=== PATIENT | male | born 1950 | race Caucasian/White ===

== ENCOUNTER 2016-06-15 06:05 | Day surgery (SDC) | payer MEDICARE ==
[2016-06-15] MEDS ORDERED: SODIUM BICARBONATE VIAL 50 MEQ/50 ML VIAL ONE (10:45)
[2016-06-15] MEDS ORDERED: SODIUM CHLORIDE 0.9% 10 ML VIAL ONE (10:45)
[2016-06-15] MEDS ORDERED: methylPREDNISolone ACETATE 80 MG/ML VIAL ONE (10:45)
[2016-06-15] MEDS: LIDOCAINE 1% 10 ML VIAL INJ ONE ×2 (12:45→12:49)
[2016-06-15] MEDS ORDERED: LIDOCAINE 1% 10 ML VIAL INJ ONE (12:49)
[2016-06-15 13:08] VITALS: BP 174/72; TEMP 98.6; O2SAT 14
== END 2016-06-15 13:08 | disposition home or self-care (01) ==
LOC: AMB 06:05
PROVIDERS: ATTEND Anesthesiology Pain Medicine
DX: M51.16 Intervertebral disc disorders with radiculopathy, lumbar region (principal); M47.817 Spondylosis without myelopathy or radiculopathy, lumbosacral region; Z79.01 Long term (current) use of anticoagulants; Z79.4 Long term (current) use of insulin; Z79.899 Other long term (current) drug therapy; E11.9 Type 2 diabetes mellitus without complications; I10 Essential (primary) hypertension
CPT/HCPCS: 62323; 76000; J1030

== ENCOUNTER → 2016-07-01 | Outpatient (CLI) | payer MEDICARE | END | disposition home or self-care (01) | LOC: LAB.O 09:17 | PROVIDERS: ATTEND Surgery | DX: E11.9 Type 2 diabetes mellitus without complications (principal); E78.00 Pure hypercholesterolemia, unspecified; Z79.4 Long term (current) use of insulin; I10 Essential (primary) hypertension ==

== ENCOUNTER 2016-08-14 11:07 | Emergency (ER) | payer MEDICARE ==
--- NOTE | 2016-08-14 12:00 | RAD ---
EXAM DESCRIPTION: Abdomen Series CLINICAL HISTORY: 66 years Male, 1 wk s/p gastric bypass with rectal bleed COMPARISON: None. TECHNIQUE: Frontal view of the chest with three-view abdomen including supine and upright FINDINGS: Lungs clear. Mild cardiomegaly without failure. Bowel gas pattern unremarkable. No mass or calculus. IMPRESSION: Mild cardiomegaly otherwise unremarkable Electronically signed by: Arik Delong MD 08/14/2016 11:59 AM CDT
--- NOTE | 2016-08-14 13:15 | ED.PDOC ---
History of Present Illness - General Chief Complaint: GI Problem Time Seen by Provider: 08/14/16 11:26 Source: patient, family Exam Limitations: no limitations - History of Present Illness Initial Comments: the patient is a 66-year-old male presenting to the emergency room secondary to a lower GI bleed. The patient had a couple of frankly bloody bowel movements this morning. No abdominal pain. No nausea or vomiting. He did have a little bit of dizziness and diaphoresis that has resolved. He is feeling a little weak currently. The patient just had a gastric bypass with Dr. Sherwood at [facility] on the of this month. He apparently did receive a unit or 2 of packed red blood cells at the time. Additionally he is on both Lovenox and Coumadin getting his INR back to a therapeutic level as he does have chronic atrial fibrillation and an aortic valve replacement. The patient had been doing well until this. No syncope. No chest pain. No further bloody bowel movements since early this morning. Timing/Duration: 1-3 hours Severity: mild Improving Factors: nothing Worsening Factors: nothing Associated Symptoms: diaphoresis, loss of appetite, malaise Allergies/Adverse Reactions: Allergies NO KNOWN ALLERGY Allergy (Unverified 01/06/13 12:06) Home Medications: Ambulatory Orders Furosemide 80 mg PO DAILY 01/28/14 Ramipril 10 mg PO BID 01/28/14 Warfarin Sodium 9 mg PO NOON 01/28/14 Metoprolol Tartrate 50 mg PO BID 08/29/14 Simvastatin [Zocor] 80 mg PO BEDTIME 05/23/15 Spironolactone [Aldactone] 25 mg PO DAILY 05/23/15 Insulin Regular (Human) [Novolin R] 100 unit SUBCU .SLIDING SCALE 10/30/15 Furosemide 40 mg PO DAILY@1200 11/25/15 Enoxaparin Sodium [Lovenox] 140 mg SC BID 08/14/16 Omeprazole Magnesium [Prilosec Otc] 20 mg PO DAILY 08/14/16 Review of Systems - Review of Systems Constitutional: States: malaise EENTM: States: no symptoms reported Respiratory: States: no symptoms reported Cardiology: States: no symptoms reported Gastrointestinal/Abdominal: States: no symptoms reported Genitourinary: States: no symptoms reported Musculoskeletal: States: no symptoms reported Skin: States: no symptoms reported Neurological: States: weakness Endocrine: States: excessive sweating Hematologic/Lymphatic: States: blood clots All other Systems: No Change from Baseline Past Medical History (General) - Patient Medical History Hx Seizures: No Hx Stroke: No Hx Asthma: No Hx of COPD: Yes Hx Cardiac Disorders: Yes Hx Congestive Heart Failure: Yes - 2007 Hx Pacemaker: No Hx Hypertension: Yes Hx Diabetes: Yes Hx Gastroesophageal Reflux: Yes Hx MRSA: No Surgical History: cholecystectomy, coronary bypass surgery, gastric bypass - Vaccination History Hx Influenza Vaccination: Yes Hx Pneumococcal Vaccination: Yes Immunizations Up to Date: Yes - Social History Hx Tobacco Use: No Hx Alcohol Use: No Hx Substance Use: No Hx Physical Abuse: No Hx Emotional Abuse: No - Triage Comment ED Triage Comment: Patient is on a liquid diet - approximately 3oz. TID. Patient reports "I'm weak". Family Medical History - Family History Mother Family History: No Known Living Status: Age at (years of age): 68 Cause of : Heart Attack Hx Family Diabetes: Yes Father Age (years): 52 Living Status: Age at (years of age): 51 Cause of : emphysema Brother Living Status: Age at (years of age): 53 Cause of : Diabetes Hx Family Diabetes: Yes Physical Exam - Physical Exam General Appearance: Alert, Comfortable, No apparent distress Eye Exam: bilateral normal Ears, Nose, Throat: normal ENT inspection, normal pharynx Neck: full range of motion, supple, normal inspection Respiratory: chest non-tender, lungs clear, normal breath sounds, no respiratory distress, no accessory muscle use Cardiovascular/Chest: normal peripheral pulses, no edema, other - regular rate Peripheral Pulses: radial,right: 2+, radial,left: 2+ Gastrointestinal/Abdominal: soft, other - no evidence of infection about operative sites. He does have extensive bruising to the lower abdomen from his previous Lovenox injections. Back Exam: normal inspection, no CVA tenderness Extremity: normal range of motion, non-tender, normal inspection, no pedal edema Neurologic: alert, normal mood/affect, oriented x 3 Skin Exam: normal color - with the exception of the bruising Comments: Vital Signs - 24 hr 08/14/16 11:20 Temperature 99.2 F Pulse Rate [ 92 H Apical] Respiratory 20 Rate Blood Pressure 154/65 [Right Arm] O2 Sat by Pulse 97 Oximetry Progress - Progress Progress: 08/14/16 13:16 the patient is a 66-year-old male presenting with a GI bleed manifesting as blood per rectum this morning. The patient is on anticoagulation with both Lovenox and Coumadin. His INR level today is 1.44. He took his most recent dose of Lovenox early this morning. H&H is 9 and 27. Platelets are adequate. Vital signs have been stable. No abdominal pain and no recent hemorrhoids. The patient will be transferred back to [facility] for further monitoring. Blood thinners will be held. The patient will be made nothing by mouth. It is recommended that patient be transferred by ambulance. due to no evidence of continued bleeding since early this morning, the patient is not at this time being given vitamin K, FFP or protamine. Transferring for specialty evaluation. Departure - Departure Clinical Impression: Gastrointestinal bleed Qualifiers: GI bleed type/associated pathology: melena Qualifier Code: (K92.1) Melena Disposition: Transfer to Hospital Home Medications: Ambulatory Orders Furosemide 80 mg PO DAILY 01/28/14 Ramipril 10 mg PO BID 01/28/14 Warfarin Sodium 9 mg PO NOON 01/28/14 Metoprolol Tartrate 50 mg PO BID 08/29/14 Simvastatin [Zocor] 80 mg PO BEDTIME 05/23/15 Spironolactone [Aldactone] 25 mg PO DAILY 05/23/15 Insulin Regular (Human) [Novolin R] 100 unit SUBCU .SLIDING SCALE 10/30/15 Furosemide 40 mg PO DAILY@1200 11/25/15 Enoxaparin Sodium [Lovenox] 140 mg SC BID 08/14/16 Omeprazole Magnesium [Prilosec Otc] 20 mg PO DAILY 08/14/16 Transfer to Outside Facility - Transfer Information Accepting Provider:: dr holalnd Accepting Facility: [facility] Reason for Transfer: required specialist not available
[2016-08-14 13:51] VITALS: TEMP 98.7
[2016-08-14 14:07] VITALS: BP 114/65; O2SAT 97
== END 2016-08-14 14:40 | disposition short-term general hospital (02) ==
LOC: ER 11:07
DX: K92.1 Melena (principal); I48.2 Chronic atrial fibrillation; Z79.01 Long term (current) use of anticoagulants; Z98.84 Bariatric surgery status; Z95.2 Presence of prosthetic heart valve; J44.9 Chronic obstructive pulmonary disease, unspecified; I11.0 Hypertensive heart disease with heart failure; I50.9 Heart failure, unspecified; E11.9 Type 2 diabetes mellitus without complications; K21.9 Gastro-esophageal reflux disease without esophagitis; Z95.1 Presence of aortocoronary bypass graft; Z79.4 Long term (current) use of insulin; Z79.899 Other long term (current) drug therapy

== ENCOUNTER 2016-08-25 11:02 | Outpatient (CLI) | payer MEDICARE ==
[2016-08-25] MEDS ORDERED: SODIUM CHLORIDE 0.9% 500ML 500 ML IVS ONE (13:14)
[2016-08-25] MEDS ORDERED: diphenhydrAMINE HCL 50 MG/ML VIAL IV ONE (13:55)
[2016-08-25] MEDS ORDERED: ACETAMINOPHEN 325 MG TAB PO ONE (13:56)
[2016-08-25 17:53] VITALS: BP 149/71; TEMP 99.1; O2SAT 100
== END 2016-08-25 17:55 | disposition home or self-care (01) ==
LOC: TXRM 11:02
PROVIDERS: ATTEND Family Medicine
PROC: 30233N1 Transfusion of Nonautologous Red Blood Cells into Peripheral Vein, Percutaneous Approach (ICD-10-PCS; principal; 2016-08-25 10:00)
DX: D64.9 Anemia, unspecified (principal)
CPT/HCPCS: 36415; 36430; 86922; J1200; P9016

== ENCOUNTER 2016-08-26 04:45 | Emergency (ER) | payer MEDICARE ==
--- NOTE | 2016-08-26 04:59 | ED.PDOC ---
History of Present Illness - General Chief Complaint: GI Problem Stated Complaint: melena Time Seen by Provider: 08/26/16 04:57 Information Source: patient, EMS notes reviewed Exam Limitations: no limitations - History of Present Illness Initial Comments: Kelvin Chong 66 y/o male with history of valve replacement in 2007 was on anti coagulation with warfarin but was discontinued when he had the gastric bypass surgery in August 06 and was placed on lovenox post op and continue to self administer the Lovenox 2 weeks ago had an episode of lower gi bleeding was brought here and sent to [facility] with endoscopic findings of gastric ulcer given one prbc and omeprazole then was discharged home with lovenox continued.He was seen at his MDs office yesterday for continued lower gi bleeding was admitted and given 1 prbc and discharge home stating bleeding did not stop and tonight felt very weak and unable to get up. Abdominal Pain Onset Location: other - none Pain Radiation: no radiation Quality: other - no belly ache Timing/Duration: 1 week Improving Factors: nothing Worsening Factors: nothing Associated Symptoms: weakness Review of Systems - Review of Systems Constitutional: States: see HPI EENTM: States: no symptoms reported Respiratory: States: no symptoms reported Cardiology: States: no symptoms reported Gastrointestinal/Abdominal: States: see HPI Genitourinary: States: no symptoms reported Musculoskeletal: States: no symptoms reported Skin: States: no symptoms reported Neurological: States: no symptoms reported Endocrine: States: no symptoms reported Hematologic/Lymphatic: States: no symptoms reported Past Medical History (General) - Patient Medical History Hx Seizures: No Hx Stroke: No Hx Asthma: No Hx of COPD: Yes Hx Cardiac Disorders: Yes Hx Congestive Heart Failure: Yes - 2007 Hx Pacemaker: No Hx Hypertension: Yes Hx Diabetes: Yes Hx Gastroesophageal Reflux: Yes Hx MRSA: No Hx Other PMH: Yes - bleeding gastric ulcer Surgical History: cholecystectomy, other - gastic bypass,heart valve replacement - Vaccination History Hx Influenza Vaccination: Yes Hx Pneumococcal Vaccination: Yes - Social History Hx Tobacco Use: No Hx Alcohol Use: No Hx Substance Use: No Hx Physical Abuse: No Hx Emotional Abuse: No Family Medical History - Family History Mother Family History: No Known Living Status: Age at (years of age): 68 Cause of : Heart Attack Hx Family Hypertension: Yes - several family members Hx Family Diabetes: Yes Father Age (years): 52 Living Status: Age at (years of age): 51 Cause of : emphysema Brother Living Status: Age at (years of age): 53 Cause of : Diabetes Hx Family Diabetes: Yes Physical Exam - Physical Exam General Appearance: Alert, Anxious, No apparent distress Eyes, Ears, Nose, Throat Exam: PERRL/EOMI, normal ENT inspection, TMs normal, pharynx normal Neck: non-tender, full range of motion, supple, normal inspection Respiratory: chest non-tender, lungs clear, normal breath sounds Cardiovascular/Chest: normal peripheral pulses, regular rate, rhythm, no edema, no gallop, no JVD, no murmur Peripheral Pulses: No deficit Gastrointestinal/Abdominal: normal bowel sounds, non tender, soft, no organomegaly Rectal Exam: normal rectal tone, blood streaked stool Back Exam: normal inspection, no CVA tenderness, no vertebral tenderness Extremity: normal range of motion, non-tender, normal inspection, no pedal edema , no calf tenderness Neurologic: no motor/sensory deficits, alert, normal mood/affect, oriented x 3 Skin Exam: other - ecchymosis from lovenox injection Lymphatic: no adenopathy Progress - Results/Orders Results/Orders: 08/26/16 04:59 PRBC [PACKED CELLS,LR] Stat 08/26/16 05:51 fecal [FECAL OCCULT BLOOD] Stat Laboratory Results WBC 4.8 K/mm3 (4.8-10.8) 08/26/16 05:15 RBC 2.27 M/mm3 (4.70-6.10) L 08/26/16 05:15 Hgb 7.1 gm/dL (14.0-18.0) L* 08/26/16 05:15 Hct 20.6 % (42.0-52.0) L 08/26/16 05:15 MCV 90.7 fl (80.0-94.0) 08/26/16 05:15 MCH 31.2 pg (27.0-31.0) H 08/26/16 05:15 MCHC 34.4 g/dL (33.0-37.0) 08/26/16 05:15 RDW 16.2 % (11.5-14.5) H 08/26/16 05:15 Plt Count 235 K/mm3 (130-400) 08/26/16 05:15 MPV 9.3 fl (7.40-10.4) 08/26/16 05:15 Absolute Neuts (auto) 2.70 K/uL (1.8-6.8) 08/26/16 05:15 Absolute Lymphs (auto) 1.50 K/uL (1.0-3.4) 08/26/16 05:15 Absolute Monos (auto) 0.50 K/uL (0.2-0.8) 08/26/16 05:15 Absolute Eos (auto) 0.10 K/uL (0.0-0.4) 08/26/16 05:15 Absolute Basos (auto) 0.00 K/uL (0.0-0.1) 08/26/16 05:15 Neutrophils % 56.5 % (42.0-78.0) 08/26/16 05:15 Lymphocytes % 30.5 % (20.0-50.0) 08/26/16 05:15 Monocytes % 11.2 % (2.0-9.0) H 08/26/16 05:15 Eosinophils % 1.1 % (1.0-5.0) 08/26/16 05:15 Basophils % 0.7 % (0.0-2.0) 08/26/16 05:15 PT 13.3 SECONDS (9.4-12.5) H 08/26/16 05:15 INR 1.180 08/26/16 05:15 PTT (SP) 38.4 SECONDS (25.1-36.5) H 08/26/16 05:15 Sodium 134 mmol/L (135-145) L 08/26/16 05:15 Potassium 3.4 mmol/L (3.6-5.0) L 08/26/16 05:15 Chloride 103 mmol/L (101-111) 08/26/16 05:15 Carbon Dioxide 24 mmol/L (21-31) 08/26/16 05:15 Anion Gap 10.4 (12-18) L 08/26/16 05:15 BUN 50 mg/dL (7-18) H 08/26/16 05:15 Creatinine 1.95 mg/dL (0.6-1.3) H 08/26/16 05:15 BUN/Creatinine Ratio 25.6 (10-20) H 08/26/16 05:15 Random Glucose 199 mg/dL (70-105) H 08/26/16 05:15 Serum Osmolality 287.2 mOsm/L (275-295) 08/26/16 05:15 Calcium 8.3 mg/dL (8.4-10.2) L 08/26/16 05:15 Total Bilirubin 1.2 mg/dL (0.2-1.0) H 08/26/16 05:15 AST 25 IU/L (10-42) 08/26/16 05:15 ALT 21 IU/L (10-60) 08/26/16 05:15 Alkaline Phosphatase 44 IU/L (42-121) 08/26/16 05:15 Serum Total Protein 6.0 gm/dL (6.4-8.2) L 08/26/16 05:15 Albumin 3.5 g/dl (3.2-5.5) 08/26/16 05:15 Globulin 2.5 gm/dL (2.3-3.5) 08/26/16 05:15 Albumin/Globulin Ratio 1.4 (1.1-1.9) 08/26/16 05:15 Stool Occult Blood Positive 08/26/16 05:30 Departure - Departure Clinical Impression: Melena, History of gastric bypass, History of aortic valve replacement with metallic valve, other type Gastric ulcer with hemorrhage Qualifiers: Gastric ulcer chronicity: chronic or unspecified Qualifier Code: (K25.4) Chronic or unspecified gastric ulcer with hemorrhage Time of Disposition: 06:56 - D/W Dr[facility] Ayla [facility] Disposition: Transfer to Hospital Condition: Fair Referrals: Chirag Echeverria III, MD [Primary Care Provider] - 1-2 Weeks Home Medications: Ambulatory Orders Ramipril 10 mg PO BID 01/28/14 Metoprolol Tartrate 50 mg PO BID 08/29/14 Simvastatin [Zocor] 80 mg PO BEDTIME 05/23/15 Spironolactone [Aldactone] 50 mg PO DAILY@0700 05/23/15 Insulin Regular (Human) [Novolin R] 100 unit SUBCU .SLIDING SCALE 10/30/15 Furosemide 40 mg PO DAILY@1200 11/25/15 Enoxaparin Sodium [Lovenox] 150 mg SC BID 08/14/16 Omeprazole Magnesium [Prilosec Otc] 20 mg PO BID 08/14/16 Addendum entered and electronically signed by Otoniel Yo MD 08/26/16 09: 13: Departure - Departure Clinical Impression: Melena, History of gastric bypass, History of aortic valve replacement with metallic valve, other type Gastric ulcer with hemorrhage Qualifiers: Gastric ulcer chronicity: chronic or unspecified Qualifier Code: (K25.4) Chronic or unspecified gastric ulcer with hemorrhage Disposition: Transfer to Hospital Condition: Fair Referrals: Chirag Echeverria III, MD [Primary Care Provider] - 1-2 Weeks Home Medications: Ambulatory Orders Ramipril 10 mg PO BID 01/28/14 Metoprolol Tartrate 50 mg PO BID 08/29/14 Simvastatin [Zocor] 80 mg PO BEDTIME 05/23/15 Spironolactone [Aldactone] 50 mg PO DAILY@0700 05/23/15 Insulin Regular (Human) [Novolin R] 100 unit SUBCU .SLIDING SCALE 10/30/15 Furosemide 40 mg PO DAILY@1200 11/25/15 Enoxaparin Sodium [Lovenox] 150 mg SC BID 08/14/16 Omeprazole Magnesium [Prilosec Otc] 20 mg PO BID 08/14/16 ED Addendum - ED Addendum Addendum: [facility] DECLINED TO ACCEPT TRANSFER AFTER DR. DENISE LEFT THE DEPARTMENT. PTS SURGERY WAS AT [facility]. I DISCUSSED CASE WITH DR. FARRIS WHO PERFORMED PTS SURGERY. HE AGREED TO ACCEPT PT. CASE WAS THEN DISCUSSED WITH ER PHYSICIAN DR. ANTON WHO ACCEPTED PATIENT THROUGH THE EMERGENCY DEPARTMENT. PATIENT REMAINS RESTING COMFORTABLY AND VITALS UNCHANGED.
[2016-08-26] MEDS ORDERED: SODIUM CHLORIDE 0.9% 500ML 500 ML IVS ONE (05:52)
[2016-08-26] MEDS ORDERED: PANTOPRAZOLE INJECTION 80 MG in SODIUM CHLORIDE 0.9% 100ML 80 ML IVPB ONE ×2 (05:55→08:04)
[2016-08-26] MEDS ORDERED: PANTOPRAZOLE SODIUM IV 40 MG VIAL ONE ×2 (06:00→08:06)
[2016-08-26] MEDS ORDERED: SODIUM CHLORIDE 0.9% 100ML 100 ML IVPB ONE ×3 (06:00→08:07)
[2016-08-26 09:21] VITALS: TEMP 98.7
[2016-08-26 09:37] VITALS: BP 135/60; O2SAT 97
== END 2016-08-26 09:36 | disposition short-term general hospital (02) ==
LOC: ER 04:45
DX: K25.4 Chronic or unspecified gastric ulcer with hemorrhage (principal); J44.9 Chronic obstructive pulmonary disease, unspecified; I11.0 Hypertensive heart disease with heart failure; I50.9 Heart failure, unspecified; E11.9 Type 2 diabetes mellitus without complications; K21.9 Gastro-esophageal reflux disease without esophagitis; Z79.01 Long term (current) use of anticoagulants; Z98.84 Bariatric surgery status; Z95.2 Presence of prosthetic heart valve; Z82.49 Family history of ischemic heart disease and other diseases of the circulatory system; Z79.899 Other long term (current) drug therapy
CPT/HCPCS: 80053; 82270; 85025; 85610; 85730; 93005; J7040; J7050

== ENCOUNTER → 2016-10-28 | Outpatient (CLI) | payer MEDICARE | END | disposition home or self-care (01) | LOC: GMAL 10:51 | PROVIDERS: ATTEND Family Medicine | DX: D53.9 Nutritional anemia, unspecified (principal) ==

== ENCOUNTER → 2016-11-04 | Outpatient (CLI) | payer MEDICARE | END | disposition home or self-care (01) | LOC: LAB.O 09:43 | PROVIDERS: ATTEND Family Medicine | DX: R74.0 Nonspecific elevation of levels of transaminase and lactic acid dehydrogenase [LDH] (principal) ==

== ENCOUNTER → 2017-02-23 | Outpatient (CLI) | payer MEDICARE | END | disposition home or self-care (01) | LOC: GMAL 10:11 | PROVIDERS: ATTEND Family Medicine | DX: Z79.899 Other long term (current) drug therapy (principal); E11.9 Type 2 diabetes mellitus without complications; Z12.5 Encounter for screening for malignant neoplasm of prostate; I48.2 Chronic atrial fibrillation ==

== ENCOUNTER 2017-04-25 21:02 | Emergency (ER) | payer MEDICARE ==
[2017-04-25] MEDS ORDERED: ONDANSETRON INJ 4 MG/2 ML VIAL IV ONE (21:14)
[2017-04-25] MEDS ORDERED: SODIUM CHLORIDE 0.9% 500ML 500 ML IVS ONE (21:14)
[2017-04-25] MEDS ORDERED: fentaNYL CITRATE INJ 50 MCG/ML AMP IV ONE ×2 (21:14→23:37)
[2017-04-25 21:36] VITALS: TEMP 98.7
--- NOTE | 2017-04-25 23:13 | CT ---
EXAM DESCRIPTION: Abdoment/Pelvis w/o Contrast CLINICAL HISTORY: 67 years Male, abd distention, vomiting COMPARISON: 10/31/2015 TECHNIQUE: Contiguous axial CT images of the abdomen and pelvis were acquired without administration of intravenous contrast. Coronal and sagittal reformatted images are provided. This exam was performed according to our departmental dose-optimization program which includes use of Automated Exposure Control, adjustment of the mA and/or kV according to patient size and/or use of iterative reconstruction technique. FINDINGS: Chest base: Coronary artery calcifications. Liver: Unremarkable. Gallbladder: Surgically absent Spleen: Unremarkable. Adrenals: Unremarkable. Pancreas: Unremarkable. Right Kidney: No renal stones or hydronephrosis. Left Kidney: No renal stones or hydronephrosis. Aorta and branch vessels: Mild calcific atherosclerosis of the aortoiliac vessels. Lymph nodes: No lymphadenopathy. Bowels: Postsurgical changes of the proximal stomach. There are multiple dilated proximal small bowel loops measuring up to 4.7 cm. Findings compatible small bowel obstruction. Transition point is noted on image 58 of series 2 and image 79 of series 602. Colon: Scattered colonic diverticula. Colon is nondistended. Appendix: Not present Peritoneum: No free air or free fluid. Pelvic organs: Unremarkable. Bladder: Unremarkable. Bones and soft tissues: No acute osseous or soft tissue abnormalities. IMPRESSION: Small bowel obstruction with transition point in the mid lower abdomen, detailed above. Electronically signed by: Celio Esparza MD 04/25/2017 11:12 PM [employer]
[2017-04-25] MEDS ORDERED: PANTOPRAZOLE SODIUM IV 40 MG VIAL IV ONE (23:37)
[2017-04-25] MEDS ORDERED: PIPERACILLIN/TAZOBACTAM 3.375 GM in SODIUM CHLORIDE 0.9% 100ML 100 ML IVPB ONE (23:37)
[2017-04-25] MEDS ORDERED: SODIUM CHLORIDE 0.9% 1000ML 1,000 ML IVS PRN (23:38)
--- NOTE | 2017-04-25 23:47 | ED.PDOC ---
History of Present Illness - General Chief Complaint: Abdominal Pain Stated Complaint: abdominal pain, vomiting Time Seen by Provider: 04/25/17 21:12 Source: patient, RN notes reviewed, Vital Signs reviewed Exam Limitations: no limitations - History of Present Illness Timing/Duration: other - 3 days Severity: moderate Improving Factors: nothing Worsening Factors: eating Associated Symptoms: chest pain, nausea/vomiting - pt reports no gas or stool for the last few days, has not been able to take anything by mount over this time. states that stomach is more distended now and has pain in the epigastric area Allergies/Adverse Reactions: Allergies Adhesive Tape Adverse Reaction (Mild, Uncoded 08/25/16 12:43) Rash Pt states is allergic to Adhesive Tape Home Medications: Ambulatory Orders Ramipril 10 mg PO BID 01/28/14 Metoprolol Tartrate 50 mg PO BID 08/29/14 Simvastatin [Zocor] 80 mg PO BEDTIME 05/23/15 Spironolactone [Aldactone] 50 mg PO DAILY@0700 05/23/15 Insulin Regular (Human) [Novolin R] 100 unit SUBCU .SLIDING SCALE 10/30/15 Furosemide 40 mg PO DAILY@1200 11/25/15 Omeprazole Magnesium [Prilosec Otc] 20 mg PO BID 08/14/16 Potassium Chloride [Potassium Chloride ER] 10 meq PO 04/25/17 Pramipexole Dihydrochloride [Pramipexole Dihydrochlori] 0.125 mg PO 04/25/17 Warfarin Sodium [Coumadin] 5 mg PO 04/25/17 Review of Systems - Review of Systems Constitutional: Denies: chills, fever, weakness EENTM: Denies: eye pain, ear pain, nose pain, throat pain, mouth pain Respiratory: Denies: cough, orthopnea, short of breath, stridor, wheezing Cardiology: Denies: chest pain, edema, palpitations, syncope Gastrointestinal/Abdominal: States: abdominal pain, nausea, vomiting. Denies: constipation, diarrhea Genitourinary: Denies: discharge, dysuria, frequency, hematuria Musculoskeletal: Denies: joint pain, joint swelling, muscle pain, muscle stiffness Skin: Denies: change in color, change in hair/nails, dryness, lesions, lumps, rash Neurological: Denies: anxiety, depressed, headache, numbness, paresthesia, tingling, tremors, weakness Endocrine: States: no symptoms reported Hematologic/Lymphatic: States: no symptoms reported Past Medical History (General) - Patient Medical History Hx Seizures: No Hx Stroke: No Hx Asthma: No Hx of COPD: Yes Hx Cardiac Disorders: Yes Hx Congestive Heart Failure: Yes - 2007 Hx Pacemaker: No Hx Hypertension: Yes Hx Diabetes: Yes Hx Gastroesophageal Reflux: Yes Hx MRSA: No Surgical History: cholecystectomy, coronary bypass surgery, gastric bypass - Vaccination History Hx Influenza Vaccination: Yes Hx Pneumococcal Vaccination: Yes - Social History Hx Tobacco Use: No Hx Alcohol Use: No Hx Substance Use: No Hx Physical Abuse: No Hx Emotional Abuse: No Family Medical History - Family History Mother Family History: No Known Living Status: Age at (years of age): 68 Cause of : Heart Attack Hx Family Hypertension: Yes - several family members Hx Family Diabetes: Yes Father Age (years): 52 Living Status: Age at (years of age): 51 Cause of : emphysema Brother Living Status: Age at (years of age): 53 Cause of : Diabetes Hx Family Diabetes: Yes Physical Exam - Physical Exam General Appearance: Alert, Anxious, Well Developed, Well Groomed, Well Hydrated , Well Nourished Ears, Nose, Throat: hearing grossly normal, normal ENT inspection Neck: non-tender, full range of motion, supple Respiratory: chest non-tender, lungs clear, normal breath sounds, no respiratory distress, no accessory muscle use Cardiovascular/Chest: normal peripheral pulses, regular rate, rhythm, no edema, no gallop, no JVD, no murmur Gastrointestinal/Abdominal: soft, tenderness - right upper quadrant Back Exam: normal inspection Extremity: normal range of motion, non-tender, normal inspection Neurologic: no motor/sensory deficits, alert Skin Exam: normal color, warm/dry Lymphatic: no adenopathy Progress - Progress Progress: 04/25/17 23:49 04/25/17 21:13 Hold Metformin x 48Hrs [id number] 04/25/17 21:15 EKG STAT 04/25/17 23:37 Piperacillin/Tazobactam [Zosyn] 3.375 gm Sodium Chloride 0.9% 100Ml [NS (NACL 0.9%) 100ml] 100 ml IVPB ONCE 04/25/17 23:38 Sodium Chloride 0.9% 1000ML [Ns 1000 ml] 1,000 ml IVS .QD Laboratory Results WBC 21.5 K/mm3 (4.8-10.8) H* 04/25/17 21:30 RBC 4.60 M/mm3 (4.70-6.10) L 04/25/17 21:30 Hgb 14.5 gm/dL (14.0-18.0) 04/25/17 21:30 Hct 41.1 % (42.0-52.0) L 04/25/17 21:30 MCV 89.2 fl (80.0-94.0) 04/25/17 21:30 MCH 31.5 pg (27.0-31.0) H 04/25/17 21:30 MCHC 35.3 g/dL (33.0-37.0) 04/25/17 21: RDW 13.4 % (11.5-14.5) 04/25/17 21:30 Plt Count 250 K/mm3 (130-400) 04/25/17 21:30 MPV 9.2 fl (7.40-10.4) 04/25/17 21:30 Absolute Neuts (auto) Not Reportable 04/25/17 21:30 Absolute Lymphs (auto) Not Reportable 04/25/17 21:30 Absolute Monos (auto) Not Reportable 04/25/17 21:30 Absolute Eos (auto) Not Reportable 04/25/17 21:30 Neutrophils % Not Reportable 04/25/17 21:30 Neutrophils % (Manual) 91.0 % 04/25/17 21:30 Lymphocytes % Not Reportable 04/25/17 21:30 Lymphocytes % (Manual) 5.0 % 04/25/17 21:30 Monocytes % Not Reportable 04/25/17 21:30 Monocytes % (Manual) 4.0 % 04/25/17 21:30 Eosinophils % Not Reportable 04/25/17 21:30 Basophils % Not Reportable 04/25/17 21:30 Platelet Estimate Normal (NORMAL) 04/25/17 21:30 Normal RBC Morphology Normal rbc morph 04/25/17 21:30 Sodium 132 mmol/L (135-145) L 04/25/17 21:30 Potassium 4.9 mmol/L (3.6-5.0) 04/25/17 21:30 Chloride 101 mmol/L (101-111) 04/25/17 21:30 Carbon Dioxide 17 mmol/L (21-31) L 04/25/17 21:30 Anion Gap 18.9 (12-18) H 04/25/17 21:30 BUN 54 mg/dL (7-18) H 04/25/17 21:30 Creatinine 2.16 mg/dL (0.6-1.3) H 04/25/17 21:30 BUN/Creatinine Ratio 25.0 (10-20) H 04/25/17 21:30 Random Glucose 406 mg/dL (70-105) H* 04/25/17 21:30 Serum Osmolality 296.5 mOsm/L (275-295) H 04/25/17 21:30 Calcium 9.6 mg/dL (8.4-10.2) 04/25/17 21:30 Total Bilirubin 1.9 mg/dL (0.2-1.0) H 04/25/17 21:30 AST 36 IU/L (10-42) 04/25/17 21:30 ALT 37 IU/L (10-60) 04/25/17 21:30 Alkaline Phosphatase 72 IU/L (42-121) 04/25/17 21:30 Serum Total Protein 8.0 gm/dL (6.4-8.2) 04/25/17 21:30 Albumin 4.6 g/dl (3.2-5.5) 04/25/17 21:30 Globulin 3.4 gm/dL (2.3-3.5) 04/25/17 21:30 Albumin/Globulin Ratio 1.4 (1.1-1.9) 04/25/17 21:30 Lipase 113 U/L (22-51) H 04/25/17 21:30 04/25/17 23:[address] Marx will accept patient Departure - Departure Clinical Impression: Small bowel obstruction, Pancreatitis, Acute renal failure, Dehydration, Abdominal pain Time of Disposition: 23:50 Disposition: Transfer to Hospital Condition: Fair Departure Forms: ED Discharge - Pt. Copy, Patient Portal Self Enrollment Diet: other - npo Activity: increase activity as tolerated Referrals: Chirag Echeverria III, MD [Primary Care Provider] - 1-2 Weeks Home Medications: Ambulatory Orders Ramipril 10 mg PO BID 01/28/14 Metoprolol Tartrate 50 mg PO BID 08/29/14 Simvastatin [Zocor] 80 mg PO BEDTIME 05/23/15 Spironolactone [Aldactone] 50 mg PO DAILY@0700 05/23/15 Insulin Regular (Human) [Novolin R] 100 unit SUBCU .SLIDING SCALE 10/30/15 Furosemide 40 mg PO DAILY@1200 11/25/15 Omeprazole Magnesium [Prilosec Otc] 20 mg PO BID 08/14/16 Potassium Chloride [Potassium Chloride ER] 10 meq PO 04/25/17 Pramipexole Dihydrochloride [Pramipexole Dihydrochlori] 0.125 mg PO 04/25/17 Warfarin Sodium [Coumadin] 5 mg PO 04/25/17 Critical Care Note - Critical Care Note Total Time (mins): 40 Transfer to Outside Facility - Transfer Information Accepting Provider:: Dr. Marx Accepting Facility: [place] Reason for Transfer: specialized care not available
[2017-04-25] MEDS ORDERED: PIPERACILLIN/TAZOBACTAM 3.375 GM VIAL IVPB ONE (23:49)
[2017-04-25] MEDS ORDERED: SODIUM CHLORIDE 0.9% 100ML 100 ML IVPB ONE (23:49)
[2017-04-26 00:06] VITALS: O2SAT 100
[2017-04-26 00:07] VITALS: BP 152/71
[2017-04-26] MEDS ORDERED: fentaNYL CITRATE INJ 50 MCG/ML AMP IV ONE (00:22)
== END 2017-04-26 00:34 | disposition short-term general hospital (02) ==
LOC: ER 21:02
DX: K56.609 Unspecified intestinal obstruction, unspecified as to partial versus complete obstruction (principal); K85.90 Acute pancreatitis without necrosis or infection, unspecified; N17.9 Acute kidney failure, unspecified; E86.0 Dehydration; I11.0 Hypertensive heart disease with heart failure; I50.9 Heart failure, unspecified; E11.9 Type 2 diabetes mellitus without complications; K21.9 Gastro-esophageal reflux disease without esophagitis; Z95.1 Presence of aortocoronary bypass graft; Z79.4 Long term (current) use of insulin; Z79.01 Long term (current) use of anticoagulants; Z79.899 Other long term (current) drug therapy
CPT/HCPCS: 36415; 74176; 80053; 83690; 85025; 93005; J2405; J2543; J3010; J7030; J7040; J7050

== ENCOUNTER → 2017-05-05 | Outpatient (CLI) | payer MEDICARE ==
--- NOTE | 2017-05-06 07:17 | RAD ---
EXAM DESCRIPTION: Pelvis CLINICAL HISTORY: 67 years Male, PAIN IN RIGHT HIP COMPARISON: None. FINDINGS: Single AP view the pelvis shows no acute fracture or malalignment. Vascular calcifications are noted. The hip joint spaces are fairly well-maintained. There is degenerative disc disease at L3-4. IMPRESSION: Degenerative changes in the lumbar spine and vascular calcifications, otherwise unremarkable exam. Electronically signed by: Navdeep Beckman MD 05/06/2017 7:16 AM [facility]
== END | disposition home or self-care (01) ==
LOC: RAD 07:57
PROVIDERS: ATTEND Orthopaedic Surgery
DX: M25.551 Pain in right hip (principal)

== ENCOUNTER → 2017-05-07 | Outpatient (CLI) | payer MEDICARE ==
--- NOTE | 2017-05-08 04:51 | US ---
EXAM DESCRIPTION: Abdomen,Complete CLINICAL HISTORY: 67 years Male, UNSPECIFIED ABDOMINAL PAIN COMPARISON: CT abdomen 04/25/2017 TECHNIQUE: Grayscale, waveform, and color Doppler images of the abdomen are acquired. FINDINGS: Pancreas: The partially visualized pancreas is unremarkable. Liver: No focal lesions Gallbladder: Surgically absent Biliary ducts: The common bile duct measures 5 mm. Right Kidney: Measures 11.3 cm. No renal stones or hydronephrosis. Left kidney: Measures 10.8 cm. No stones or hydronephrosis. Spleen: Unremarkable measuring 12.9 cm. Aorta: The proximal aorta measures 2 cm, mid aorta measures 2.1 cm, distal aorta measures 2.1 cm. Visualized IVC is within normal limits. IMPRESSION: Unremarkable abdominal ultrasound. Electronically signed by: Celio Esparza MD 05/08/2017 4:50 AM [facility]
== END | disposition home or self-care (01) ==
LOC: US 10:02
PROVIDERS: ATTEND Family Medicine
DX: R10.9 Unspecified abdominal pain (principal)

== ENCOUNTER → 2017-05-31 | Outpatient (CLI) | payer MEDICARE | END | disposition home or self-care (01) | LOC: LAB.O 08:38 | PROVIDERS: ATTEND Physician Assistant | DX: E78.5 Hyperlipidemia, unspecified (principal) ==

== ENCOUNTER → 2017-07-21 | Outpatient (CLI) | payer MEDICARE ==
--- NOTE | 2017-07-21 10:24 | US ---
THYROID ULTRASOUND CLINICAL INFORMATION: Thyroid nodule TECHNIQUE: Thyroid sonogram was performed COMPARISON: None FINDINGS: Thyroid size: Right Right lobe measures 3.9 x 1.9 x 1.6 cm. Left Left lobe measures 3.8 x 1.7 x 2.0 cm. Isthmus The isthmic thickness in the midline is 0.17 cm which is normal. Texture: Thyroid tissue around the nodules is normally echogenic. Nodules: Right Upper right thyroid nodule situated laterally is hypoechoic and smoothly marginated and measures 1.5 x 0.7 x 0.9 cm. A nodule of this size should be further evaluated with fine-needle aspiration biopsy if not already performed. In the mid right thyroid lobe anteriorly is smaller nodule measures 0.7 x 0.5 x 0.7 cm. This can be followed. In the lower right thyroid lobe a nodule is 0.8 x 0.6 x 0.7 cm. This could be followed. Color Doppler imaging shows normal flow in the right thyroid lobe. None of the nodules appear hypervascular. Left In the lower left thyroid lobe a small nodule measures 3 mm in diameter. This can be followed. No additional left sided thyroid nodules are highlighted are measured. No anterior cervical adenopathy. IMPRESSION: Hypoechoic nodule 1.5 cm in the posterior superior right thyroid lobe. Further evaluation is recommended. Other thyroid nodules can be followed up with thyroid sonography in one year. Electronically signed by: Jong Umanzor MD 07/21/2017 10:23 AM [facility] [[email or web address]]
== END ==
LOC: US 08:00
PROVIDERS: ATTEND Family Medicine
DX: E04.1 Nontoxic single thyroid nodule (principal)

== ENCOUNTER → 2017-08-04 | Outpatient (CLI) | payer MEDICARE ==
--- NOTE | 2017-08-04 15:08 | US ---
Thyroid Ultrasound Biopsy CLINICAL INFORMATION: Abnormal right thyroid nodule. TECHNIQUE: Procedure was explained to the patient with risks and benefits. The patient gave verbal and written consent. Sterile preparation draping. 1% xylocaine dermal anesthetic. Sterile ultrasound guidance. A total of 5 passes right thyroid nodule; 3 needle samplings with a separate 1.5 inch, 25-gauge needle per sample, and 2 aspiration, with a separate 1.5 inch, 25-gauge needle/10-cc syringe set, per aspiration. Each sample was placed on a separate slide and fixed in 95% alcohol container. Saccomanno fluid drawn into aspirate needle and rinse injected into Saccomanno container. Specimens to be sent for pathologic examination at remote facility. . Patient tolerated procedure well, with no immediate complications. Biopsy #: 1 Nodule reference number based on prior diagnostic ultrasound:1 Maximum size: 1.5 cm Location: right; mid ACR TI-RADS risk category: TR4 (4-6 points) Reason for biopsy: meets ACR TI-RADS criteria Complications: None. IMPRESSION: Successful ultrasound guided fine needle aspiration and sampling of right thyroid nodule. Electronically signed by: Neo Funes MD 08/04/2017 3:06 PM CDT
== END ==
LOC: US 09:00
PROVIDERS: ATTEND Family Medicine
DX: E04.1 Nontoxic single thyroid nodule (principal)

== ENCOUNTER 2017-08-09 13:23 | Emergency (ER) | payer MEDICARE ==
--- NOTE | 2017-08-09 13:40 | ED.PDOC ---
History of Present Illness - General Stated Complaint: INJURY TO RIGHT LEG JUST PRIOR TO ARRIVAL Time Seen by Provider: 08/09/17 13:38 Source: patient, Vital Signs reviewed, EMS notes reviewed Additional Information: 67 YEAR OLD COMPLAINTS OF PAIN AND SWELLING OVER THE PROXIMAL RIGHT LEG ACCIDENTAL INJURY WHEN A TRAILER FELL ON HIS LEG HE IS ON COUMADIN FOR HIS MECHANICAL AORTIC VALVE HE IS ABLE TO WALK WITH DISCOMFORT - History of Present Illness Occurred: just prior to arrival Pain - Lower Extremity: moderate: Right Knee Method of Injury: direct blow, fell Improving Factors: nothing Allergies/Adverse Reactions: Allergies Adhesive Tape Adverse Reaction (Mild, Uncoded 08/09/17 13:57) Rash Pt states is allergic to Adhesive Tape Home Medications: Ambulatory Orders Ramipril 10 mg PO BID 01/28/14 Metoprolol Tartrate 50 mg PO BID 08/29/14 Simvastatin [Zocor] 80 mg PO BEDTIME 05/23/15 Spironolactone [Aldactone] 50 mg PO DAILY@0700 05/23/15 Insulin Regular (Human) [Novolin R] 100 unit SUBCU .SLIDING SCALE 10/30/15 Furosemide 40 mg PO DAILY@1200 11/25/15 Omeprazole Magnesium [Prilosec Otc] 20 mg PO BID 08/14/16 Potassium Chloride [Potassium Chloride ER] 10 meq PO 04/25/17 Pramipexole Dihydrochloride [Pramipexole Dihydrochlori] 0.125 mg PO 04/25/17 Warfarin Sodium [Coumadin] 5 mg PO 04/25/17 Acetamin W/Cod #3 Tab [Tylenol w/CODEINE #3] 1 ea PO Q6HR PRN #40 tab 08/09/17 Review of Systems - Review of Systems Constitutional: States: no symptoms reported EENTM: States: no symptoms reported Respiratory: States: no symptoms reported Cardiology: States: no symptoms reported Gastrointestinal/Abdominal: States: no symptoms reported Genitourinary: States: no symptoms reported Musculoskeletal: States: no symptoms reported Skin: States: no symptoms reported Neurological: States: no symptoms reported Endocrine: States: no symptoms reported Past Medical History (General) - Patient Medical History Hx Seizures: No Hx Stroke: No Hx Asthma: No Hx of COPD: Yes Hx Cardiac Disorders: Yes Hx Congestive Heart Failure: Yes - 2007 Hx Pacemaker: No Hx Hypertension: Yes Hx Diabetes: Yes Hx Gastroesophageal Reflux: Yes Hx MRSA: No - Vaccination History Hx Influenza Vaccination: Yes Hx Pneumococcal Vaccination: Yes - Social History Hx Tobacco Use: No Hx Alcohol Use: No Hx Substance Use: No Hx Physical Abuse: No Hx Emotional Abuse: No Family Medical History - Family History Mother Family History: No Known Living Status: Age at (years of age): 68 Cause of : Heart Attack Hx Family Hypertension: Yes - several family members Hx Family Diabetes: Yes Father Age (years): 52 Living Status: Age at (years of age): 51 Cause of : emphysema Brother Living Status: Age at (years of age): 53 Cause of : Diabetes Hx Family Diabetes: Yes Physical Exam - Physical Exam General Appearance: Alert Eyes, Ears, Nose, Throat: PERRL/EOMI, normal ENT inspection, TMs normal, pharynx normal Neck: non-tender, full range of motion, supple Cardiovascular/Respiratory: regular rate, rhythm, no M/R/G, normal peripheral pulses, no JVD, normal breath sounds, no respiratory distress Gastrointestinal/Abdominal: non-tender, no organomegaly, no hernia Back: normal inspection, no CVA tenderness Thigh/Hip: normal inspection, non-tender Knee: pain, swelling, other - RIGHT LEG JUST BELOW THE KNEE THERE IS A LARGE HEMATOMA Departure - Departure Clinical Impression: Hematoma, Contusion Disposition: Discharge to Home or Self Care Referrals: Chirag Echeverria III, MD [Primary Care Provider] - 1-2 Weeks Prescriptions: Acetamin W/Cod #3 Tab [Tylenol w/CODEINE #3] 1 ea PO Q6HR PRN #40 tab PRN Reason: Mild To Moderate Pain Home Medications: Ambulatory Orders Ramipril 10 mg PO BID 01/28/14 Metoprolol Tartrate 50 mg PO BID 08/29/14 Simvastatin [Zocor] 80 mg PO BEDTIME 05/23/15 Spironolactone [Aldactone] 50 mg PO DAILY@0700 05/23/15 Insulin Regular (Human) [Novolin R] 100 unit SUBCU .SLIDING SCALE 10/30/15 Furosemide 40 mg PO DAILY@1200 11/25/15 Omeprazole Magnesium [Prilosec Otc] 20 mg PO BID 08/14/16 Potassium Chloride [Potassium Chloride ER] 10 meq PO 04/25/17 Pramipexole Dihydrochloride [Pramipexole Dihydrochlori] 0.125 mg PO 04/25/17 Warfarin Sodium [Coumadin] 5 mg PO 04/25/17 Acetamin W/Cod #3 Tab [Tylenol w/CODEINE #3] 1 ea PO Q6HR PRN #40 tab 08/09/17 Additional Instructions: ELEVATE REST LOCAL ICE AVOID EXERCISE SEE YOUR PCP TO REPEAT INR TOMORROW
[2017-08-09] MEDS ORDERED: HYDROCOD/APAP 10/325 (ER DISP) # 3 tablets PO ONE (13:43)
[2017-08-09 13:54] VITALS: TEMP 98.6
[2017-08-09] MEDS ORDERED: HYDROcodone 10MG/APAP 325MG 1 EA TAB PO ONE (13:57)
[2017-08-09] MEDS ORDERED: LIDOCAINE 1% 10 ML VIAL INJ ONE (14:21)
--- NOTE | 2017-08-09 14:21 | RAD ---
EXAM DESCRIPTION: Tibia/Fibula,Right CLINICAL HISTORY: 67 years Male, FALL COMPARISON: Previous study November 27, 2015 TECHNIQUE: Frontal and lateral x-ray views of the right tibia and fibula FINDINGS: Bones appear osteopenic or osteoporotic with prominent trabecular pattern. Vascular calcification is seen. Edematous changes are seen in the soft tissues of the medial right knee and upper calf. Clinical correlation recommended. No radiopaque foreign body. No air in the soft tissues. IMPRESSION: Negative for fracture or dislocation. Swelling/edema in the medial right knee and upper calf. Electronically signed by: Jong Umanozr MD 08/09/2017 2:19 PM CDT
[2017-08-09 15:30] VITALS: BP 143/65; O2SAT 96
== END 2017-08-09 15:22 | disposition home or self-care (01) ==
LOC: ER 13:23
DX: S80.11XA Contusion of right lower leg, initial encounter (principal); I11.0 Hypertensive heart disease with heart failure; I50.9 Heart failure, unspecified; E11.9 Type 2 diabetes mellitus without complications; K21.9 Gastro-esophageal reflux disease without esophagitis; Z95.2 Presence of prosthetic heart valve; Z79.4 Long term (current) use of insulin; Z79.01 Long term (current) use of anticoagulants; W20.8XXA Other cause of strike by thrown, projected or falling object, initial encounter; Y92.9 Unspecified place or not applicable

== ENCOUNTER → 2017-10-18 | Outpatient (CLI) | payer MEDICARE | LOC: LAB.O 08:32 | PROVIDERS: ATTEND Surgery | DX: E11.9 Type 2 diabetes mellitus without complications (principal); M19.90 Unspecified osteoarthritis, unspecified site; Z79.4 Long term (current) use of insulin; E78.00 Pure hypercholesterolemia, unspecified; K91.2 Postsurgical malabsorption, not elsewhere classified; I10 Essential (primary) hypertension ==

== ENCOUNTER → 2018-02-23 | Outpatient (CLI) | payer MEDICARE | LOC: GMAL 14:45 | PROVIDERS: ATTEND Family Medicine | DX: D51.3 Other dietary vitamin B12 deficiency anemia (principal); E55.9 Vitamin D deficiency, unspecified ==

== ENCOUNTER → 2018-03-17 | Outpatient (CLI) | payer MEDICARE ==
--- NOTE | 2018-03-17 10:54 | US ---
EXAM DESCRIPTION: Liver: ULTRASOUND. CLINICAL HISTORY: ELEVATED LFT'S COMPARISON: Complete ultrasound abdomen 05/07/2017. TECHNIQUE: Transabdominal scannin-dimensional and Doppler modes. FINDINGS: Gallbladder: Has been surgically removed. No fluid in the gallbladder fossa. Common bile duct: caliber 5.1 mm within normal limits. Liver: Increased echogenicity; contour liver capsule smooth where seen. No fluid around the liver. Intrahepatic biliary ducts normal caliber. Doppler hepatopedal flow portal vein. Normal caliber 9 Millimeters. Long axis right lobe 14.8 cm. Pancreas: normal size and echogenicity. Duct not seen. Right kidney: long axis measures 10.6 cm. Normal Echogenicity. Normal cortical thickness. No hydronephrosis IMPRESSION: Gallbladder is been surgically removed. Liver demonstrates steatosis but normal size. Normal vascularity and ducts. Smooth capsule with no ascites. Pancreas is unremarkable. Negative findings right kidney. Electronically signed by: Neo Funes MD 03/17/2018 10:52 AM CDT
== END ==
LOC: US 09:00
PROVIDERS: ATTEND Family Medicine
DX: R94.5 Abnormal results of liver function studies (principal); K76.0 Fatty (change of) liver, not elsewhere classified; Z90.49 Acquired absence of other specified parts of digestive tract

== ENCOUNTER → 2018-05-23 | Outpatient (CLI) | payer MEDICARE | LOC: GMAL 10:53 | PROVIDERS: ATTEND Family Medicine | DX: Z12.5 Encounter for screening for malignant neoplasm of prostate (principal) ==

== ENCOUNTER 2018-06-20 07:00 | Emergency (ER) | payer MEDICARE ==
[2018-06-20] MEDS ORDERED: IBUPROFEN 200 MG TAB PO ONE (07:10)
--- NOTE | 2018-06-20 07:43 | RAD ---
EXAM DESCRIPTION: Chest,2 Views CLINICAL HISTORY: sob, fever COMPARISON: November 25, 2015 FINDINGS: Postoperative changes in the mediastinum. The cardiomediastinal silhouette is otherwise unremarkable. There is no airspace consolidation or pleural effusion. The bronchovascular markings are within normal limits, and the lungs are not hyperinflated. There is no pneumothorax or acute fracture. IMPRESSION: Negative exam. Electronically signed by: Navdeep Beckman MD 06/20/2018 7:41 AM [facility]
[2018-06-20] MEDS ORDERED: predniSONE 20 MG TAB PO ONE (08:27)
[2018-06-20] MEDS ORDERED: AMOXICILLIN & POT CLAVULANATE 875 MG TAB PO ONE (08:27)
--- NOTE | 2018-06-20 08:33 | ED.PDOC ---
History of Present Illness - General Chief Complaint: Dental/Mouth Stated Complaint: tooth pain Time Seen by Provider: 06/20/18 07:09 Source: patient Exam Limitations: no limitations - History of Present Illness Initial Comments: the patient is a 68-year-old male presenting to the emergency room secondary to a dental root infection on the right side giving him a maxillary sinusitis low-grade fever and some mild achiness. He has been having dental pain for 6 or 7 years and that tooth and actually has an appointment with a dentist today. He has gone off of his Coumadin in order to have the dentist work on the tooth. He does have a low-grade fever. No cough but he does feel tired and weak when he gets around. No palpitations. No evidence of any fluid overload. No nausea or vomiting. Timing/Duration: unsure Severity: moderate Improving Factors: nothing Worsening Factors: nothing Associated Symptoms: denies symptoms Allergies/Adverse Reactions: Allergies Adhesive Tape Adverse Reaction (Mild, Uncoded 08/09/17 13:57) Rash Pt states is allergic to Adhesive Tape Home Medications: Ambulatory Orders Ramipril 10 mg PO BID 01/28/14 Metoprolol Tartrate 50 mg PO BID 08/29/14 Simvastatin [Zocor] 80 mg PO BEDTIME 05/23/15 Spironolactone [Aldactone] 50 mg PO DAILY@0700 05/23/15 Insulin Regular (Human) [Novolin R] 100 unit SUBCU .SLIDING SCALE 10/30/15 Furosemide 40 mg PO DAILY@1200 11/25/15 Omeprazole Magnesium [Prilosec Otc] 20 mg PO BID 08/14/16 Potassium Chloride [Potassium Chloride ER] 10 meq PO 04/25/17 Pramipexole Dihydrochloride [Pramipexole Dihydrochlori] 0.125 mg PO 04/25/17 Warfarin Sodium [Coumadin] 5 mg PO 04/25/17 Acetamin W/Cod #3 Tab [Tylenol w/CODEINE #3] 1 ea PO Q6HR PRN #40 tab 08/09/17 Amoxicillin & Pot Clavulanate [Augmentin Tab] 875 mg PO BID #20 tab 06/20/18 Review of Systems - Review of Systems Constitutional: States: fever, malaise EENTM: States: mouth pain Respiratory: States: short of breath - fatigue with getting around Cardiology: States: no symptoms reported Gastrointestinal/Abdominal: States: no symptoms reported Genitourinary: States: no symptoms reported Musculoskeletal: States: no symptoms reported Skin: States: no symptoms reported Neurological: States: no symptoms reported Endocrine: States: no symptoms reported All other Systems: No Change from Baseline Past Medical History (General) - Patient Medical History Hx Seizures: No Hx Stroke: No Hx Asthma: No Hx of COPD: Yes Hx Cardiac Disorders: Yes Hx Congestive Heart Failure: Yes - 2007 Hx Pacemaker: No Hx Hypertension: Yes Hx Diabetes: Yes Hx Gastroesophageal Reflux: Yes Hx Cancer: Yes - skin Hx MRSA: No Surgical History: coronary bypass surgery, gastric bypass, tonsillectomy - Vaccination History Hx Influenza Vaccination: Yes Hx Pneumococcal Vaccination: Yes - Social History Hx Tobacco Use: No Hx Alcohol Use: No Hx Substance Use: No Hx Physical Abuse: No Hx Emotional Abuse: No Family Medical History - Family History Mother Family History: No Known Living Status: Age at (years of age): 69 Cause of : Heart Attack Hx Family Hypertension: Yes - several family members Hx Family Diabetes: Yes Father Age (years): 52 Living Status: Age at (years of age): 51 Cause of : emphysema Brother Living Status: Age at (years of age): 53 Cause of : Diabetes Hx Family Diabetes: Yes Physical Exam - Physical Exam General Appearance: Alert, Comfortable, No apparent distress Eye Exam: bilateral normal Ears, Nose, Throat: hearing grossly normal, other - he does have a old fractured molar that is giving him pain and a maxillary sinusitis on the right Neck: full range of motion, supple Respiratory: lungs clear, normal breath sounds, no respiratory distress, no accessory muscle use Cardiovascular/Chest: normal peripheral pulses, no edema, other - regular rate Peripheral Pulses: radial,right: 2+, radial,left: 2+ Gastrointestinal/Abdominal: non tender, soft Rectal Exam: deferred Back Exam: no CVA tenderness, no vertebral tenderness Extremity: normal range of motion, non-tender, normal inspection, no pedal edema Neurologic: batch dumper II-XII nml as tested, alert, normal mood/affect, oriented x 3 Skin Exam: normal color Comments: Vital Signs - 24 hr 06/20/18 07:03 Temperature 101.5 F H Pulse Rate [ 78 Right] Respiratory 18 Rate Blood Pressure 167/65 [Left Arm] O2 Sat by Pulse 97 Oximetry Progress - Progress Progress: 06/20/18 08:34 the patient is a 68-year-old male presenting with what appears to be a right maxillary sinusitis likely extending from a dental root infection. He does need to keep follow-up with his dentist to have this taken care of. He is currently off of his Coumadin for this purpose. The patient did receive a dose of oral prednisone here 1 to help reduce inflammation and allow for drainage of the sinus. Additionally he is going to be placed on Augmentin for the next 10 days. He can also pick up worker some [id number] Flonase and use 1 spray per nostril twice daily to help reduce inflammation as well. Motrin can be used twice daily to 3 times daily to help reduce any fever. ER warnings were given. Blood work, x-ray and rapid flu were reassuring. Keep follow-up with primary care doctor in the near future. - Results/Orders Results/Orders: chest x-ray shows no evidence of any acute process. No fluid overload. No obvious pneumonia. No pneumothorax. Rapid flu is negative. Laboratory Tests 06/20/18 06/20/18 06/20/18 07:16 07:16 07:16 WBC 10.3 RBC 4.02 L Hgb 12.7 L Hct 37.0 L MCV 92.0 MCH 31.5 H MCHC 34.4 RDW 12.9 Plt Count 149 MPV 8.5 Absolute Neuts (auto) 8.30 H Absolute Lymphs (auto) 1.10 Absolute Monos (auto) 0.70 Absolute Eos (auto) 0.10 Absolute Basos (auto) 0.00 Neutrophils % 80.8 H Lymphocytes % 10.3 L Monocytes % 7.1 Eosinophils % 1.3 Basophils % 0.5 PT 14.7 H INR 1.48 H PTT (SP) 33.4 H Sodium 134 L Potassium 4.5 Chloride 97 L Carbon Dioxide 23 Anion Gap 18.5 H BUN 20 H Creatinine 1.58 H BUN/Creatinine Ratio 12.7 Random Glucose 185 H Serum Osmolality 275.7 Lactic Acid Calcium 9.1 Total Bilirubin 2.5 H* AST 31 ALT 24 Alkaline Phosphatase 76 Creatine Kinase 213 H* CK-MB (CK-2) 1.8 CK-MB (CK-2) % Not Reportable Troponin I 0.02 B-Natriuretic Peptide 55.4 Serum Total Protein 7.3 Albumin 4.0 Globulin 3.3 Albumin/Globulin Ratio 1.2 06/20/18 07:16 WBC RBC Hgb Hct MCV MCH MCHC RDW Plt Count MPV Absolute Neuts (auto) Absolute Lymphs (auto) Absolute Monos (auto) Absolute Eos (auto) Absolute Basos (auto) Neutrophils % Lymphocytes % Monocytes % Eosinophils % Basophils % PT INR PTT (SP) Sodium Potassium Chloride Carbon Dioxide Anion Gap BUN Creatinine BUN/Creatinine Ratio Random Glucose Serum Osmolality Lactic Acid 0.8 Calcium Total Bilirubin AST ALT Alkaline Phosphatase Creatine Kinase CK-MB (CK-2) CK-MB (CK-2) % Troponin I B-Natriuretic Peptide Serum Total Protein Albumin Globulin Albumin/Globulin Ratio Departure - Departure Clinical Impression: Dental caries Maxillary sinusitis, acute Qualifiers: Recurrence: non-recurrent Qualified Code(s): J01.00 - Acute maxillary sinusitis, unspecified Disposition: Discharge to Home or Self Care Condition: Fair Departure Forms: ED Discharge - Pt. Copy, Patient Portal Self Enrollment Instructions: DI for Dental Pain Diet: diabetic diet Activity: increase activity as tolerated Referrals: Chirag Echeverria III, MD [Primary Care Provider] - 1-2 Weeks Prescriptions: Amoxicillin & Pot Clavulanate [Augmentin Tab] 875 mg PO BID #20 tab Home Medications: Ambulatory Orders Ramipril 10 mg PO BID 01/28/14 Metoprolol Tartrate 50 mg PO BID 08/29/14 Simvastatin [Zocor] 80 mg PO BEDTIME 05/23/15 Spironolactone [Aldactone] 50 mg PO DAILY@0700 05/23/15 Insulin Regular (Human) [Novolin R] 100 unit SUBCU .SLIDING SCALE 10/30/15 Furosemide 40 mg PO DAILY@1200 11/25/15 Omeprazole Magnesium [Prilosec Otc] 20 mg PO BID 08/14/16 Potassium Chloride [Potassium Chloride ER] 10 meq PO 04/25/17 Pramipexole Dihydrochloride [Pramipexole Dihydrochlori] 0.125 mg PO 04/25/17 Warfarin Sodium [Coumadin] 5 mg PO 04/25/17 Acetamin W/Cod #3 Tab [Tylenol w/CODEINE #3] 1 ea PO Q6HR PRN #40 tab 08/09/17 Amoxicillin & Pot Clavulanate [Augmentin Tab] 875 mg PO BID #20 tab 06/20/18 Additional Instructions: the patient is a 68-year-old male presenting with what appears to be a right maxillary sinusitis likely extending from a dental root infection. He does need to keep follow-up with his dentist to have this taken care of. He is currently off of his Coumadin for this purpose. The patient did receive a dose of oral prednisone here 1 to help reduce inflammation and allow for drainage of the sinus. Additionally he is going to be placed on Augmentin for the next 10 days. He can also pick up worker some [id number] Flonase and use 1 spray per nostril twice daily to help reduce inflammation as well. Motrin can be used twice daily to 3 times daily to help reduce any fever. ER warnings were given. Blood work, x-ray and rapid flu were reassuring. Keep follow-up with primary care doctor in the near future.
[2018-06-20 08:47] VITALS: BP 162/67; TEMP 99; O2SAT 95
== END 2018-06-20 08:46 | disposition home or self-care (01) ==
LOC: ER 07:00
DX: K02.9 Dental caries, unspecified (principal); J01.00 Acute maxillary sinusitis, unspecified; R53.1 Weakness; J44.9 Chronic obstructive pulmonary disease, unspecified; I50.9 Heart failure, unspecified; I11.0 Hypertensive heart disease with heart failure; E11.9 Type 2 diabetes mellitus without complications; K21.9 Gastro-esophageal reflux disease without esophagitis; Z95.1 Presence of aortocoronary bypass graft; Z79.01 Long term (current) use of anticoagulants; Z79.4 Long term (current) use of insulin; Z79.899 Other long term (current) drug therapy
CPT/HCPCS: 36415; 71046; 80053; 81001; 82550; 82553; 83605; 83880; 84484; 85025; 85610; 85730; 87502; J7512

== ENCOUNTER 2018-12-26 15:17 | Inpatient (IN) | payer MEDICARE ==
[2018-12-26] MEDS ORDERED: ACETAMINOPHEN 325 MG TAB PO ONE (17:03)
--- NOTE | 2018-12-26 17:38 | RAD ---
EXAM DESCRIPTION: Chest,1 View CLINICAL HISTORY: fever COMPARISON: Chest radiograph dated August 18, 2018 TECHNIQUE: Single upright portable frontal view of the chest FINDINGS: Postsurgical changes with median sternotomy wires. Cardiac silhouette shows normal heart size. Pulmonary vascularity is within normal limits. Lungs show no confluent infiltrates. No pleural effusion. No pneumothorax. No acute osseous abnormality. Postsurgical changes over the left upper abdominal quadrant. IMPRESSION: 1. No acute cardiopulmonary process. 2. Other findings as above. Electronically signed by: Chirag Campuzano MD 12/26/2018 5:36 PM CDT
--- NOTE | 2018-12-26 17:41 | CT ---
EXAM: CT Abdomen and Pelvis Without Intravenous Contrast CLINICAL HISTORY: bilateral flank pain TECHNIQUE: Axial computed tomography images of the abdomen and pelvis without intravenous contrast. Sagittal and coronal reformatted images were created and reviewed. This CT exam was performed using one or more of the following dose reduction techniques: automated exposure control, adjustment of the mA and/or kV according to patient size, and/or use of iterative reconstruction technique. COMPARISON: No relevant prior studies available. FINDINGS: Limitations: Portions of each flank are not included.. Lung bases: Unremarkable. No mass. No consolidation. ABDOMEN: Liver: Unremarkable. Gallbladder and bile ducts: Cholecystectomy. No ductal dilation. Pancreas: Unremarkable. No ductal dilation. Spleen: Unremarkable. No splenomegaly. Adrenals: Unremarkable. No mass. Kidneys and ureters: There is symmetrical bilateral perinephric stranding. No obstructing stones. No hydronephrosis. Stomach and bowel: Gastric bypass changes present. No obstruction. No mucosal thickening. PELVIS: Appendix: No findings to suggest acute appendicitis. Bladder: Unremarkable. No stones. Reproductive: Unremarkable as visualized. ABDOMEN and PELVIS: Intraperitoneal space: Unremarkable. No free air. No significant fluid collection. Bones/joints: No acute fracture. No dislocation. Soft tissues: Unremarkable. Vasculature: Atherosclerosis without aneurysm. Lymph nodes: Unremarkable. No enlarged lymph nodes. IMPRESSION: Bilateral perinephric stranding may represent acute and/or chronic pyelonephritis. Correlate with urinalysis. No stones. Electronically signed by: Fany Parker MD 12/26/2018 5:40 PM CDT
--- NOTE | 2018-12-26 17:44 | ED.PDOC ---
History of Present Illness - General Chief Complaint: Back Pain or Injury Stated Complaint: bilateral flank pain Time Seen by Provider: 12/26/18 15:47 Source: patient Exam Limitations: no limitations - History of Present Illness Initial Comments: Kelvin Chong 68 y/o male came to ER with bilateral flank pain this am got shaky and felt nauseated and urinary discomfort.Had chronic back pain for several years but stated had more dull ache today.Had been seen by chiropractor on and off for his chronic back ache.Denies bowel or bladder dysfunction but had fever today. Timing/Duration: 7-24 hours Quality/Severity: dullness Back Pain Location: lumbar spine Back Pain Radiation: other - up to his neck Method of Injury/Prior Injury: other - NO INJURY SEE HPI Improving Factors: nothing Worsening Factors: nothing Associated Symptoms: other - see hpi Allergies/Adverse Reactions: Allergies Adhesive Tape Adverse Reaction (Mild, Uncoded 08/09/17 13:57) Rash Pt states is allergic to Adhesive Tape Home Medications: Ambulatory Orders Ramipril 10 mg PO BID 01/28/14 Metoprolol Tartrate 50 mg PO BID 08/29/14 Simvastatin [Zocor] 80 mg PO BEDTIME 05/23/15 Spironolactone [Aldactone] 50 mg PO DAILY@0700 05/23/15 Insulin Regular (Human) [Novolin R] 100 unit SUBCU .SLIDING SCALE 10/30/15 Furosemide 40 mg PO DAILY@1200 11/25/15 Omeprazole Magnesium [Prilosec Otc] 20 mg PO BID 08/14/16 Potassium Chloride [Potassium Chloride ER] 10 meq PO 04/25/17 Pramipexole Dihydrochloride [Pramipexole Dihydrochlori] 0.125 mg PO 04/25/17 Warfarin Sodium [Coumadin] 5 mg PO 04/25/17 Acetamin W/Cod #3 Tab [Tylenol w/CODEINE #3] 1 ea PO Q6HR PRN #40 tab 08/09/17 Amoxicillin & Pot Clavulanate [Augmentin Tab] 875 mg PO BID #20 tab 06/20/18 Review of Systems - Review of Systems Constitutional: States: see HPI, fever EENTM: States: no symptoms reported Respiratory: States: no symptoms reported Cardiology: States: no symptoms reported Gastrointestinal/Abdominal: States: no symptoms reported Musculoskeletal: States: back pain - CHRONIC Skin: States: no symptoms reported Neurological: States: no symptoms reported All other Systems: Reviewed and Negative, No Change from Baseline Past Medical History (General) - Patient Medical History Hx Seizures: No Hx Stroke: No Hx Asthma: No Hx of COPD: Yes Hx Cardiac Disorders: Yes Hx Congestive Heart Failure: Yes - 2007 Hx Pacemaker: No Hx Hypertension: Yes Hx Diabetes: Yes Hx Gastroesophageal Reflux: Yes Hx Cancer: Yes - skin Hx MRSA: No Hx Other PMH: Yes - GI bleed Surgical History: cholecystectomy, gastric bypass, other - aortic valve replacement - Vaccination History Hx Influenza Vaccination: Yes Hx Pneumococcal Vaccination: Yes - Social History Hx Tobacco Use: No Hx Alcohol Use: No Hx Substance Use: No Hx Physical Abuse: No Hx Emotional Abuse: No Family Medical History - Family History Mother Family History: No Known Living Status: Age at (years of age): 68 Cause of : Heart Attack Hx Family Hypertension: Yes - several family members Hx Family Diabetes: Yes Father Age (years): 52 Living Status: Age at (years of age): 51 Cause of : emphysema Brother Living Status: Age at (years of age): 53 Cause of : Diabetes Hx Family Diabetes: Yes Physical Exam - Physical Exam General Appearance: Alert, Comfortable Eyes, Ears, Nose, Throat Exam: normal ENT inspection Neck Exam: non-tender, full range of motion, normal inspection Cardiovascular/Respiratory: regular rate, rhythm, no M/R/G, normal peripheral pulses, no JVD, other - crisp heart valve Peripheral Pulses: radial,right: 2+, radial,left: 2+ Gastrointestinal/Abdominal: non tender, soft, no organomegaly, other - rectal exam-normal rectal tone;prostate firm not tender Back Exam: CVA tenderness (R), CVA tenderness (L) Extremity Exam: non-tender, no pedal edema Neurologic: alert, oriented x 3 Progress - Results/Orders Results/Orders: 12/26/18 17:10 BLOOD CULTURE Stat 12/26/18 18:39 stool [FECAL OCCULT BLOOD] Stat 12/26/18 18:54 cefTRIAXone SODIUM [Rocephin] 1 gm Sodium Chl 0.9% 50Ml Min-Bag+ [NS 50ml MIN I-BAG+] 50 ml IVPB ONCE 12/26/18 18:58 ED Intent to Admit Routine Laboratory Results - last 24 hr 12/26/18 12/26/18 12/26/18 15:45 15:45 15:45 WBC 13.1 H RBC 3.99 L Hgb 12.5 L Hct 36.0 L MCV 90.4 MCH 31.4 H MCHC 34.7 RDW 13.8 Plt Count 159 MPV 9.7 Absolute Neuts (auto) 11.70 H Absolute Lymphs (auto) 0.70 L Absolute Monos (auto) 0.60 Absolute Eos (auto) 0.10 Absolute Basos (auto) 0.00 Neutrophils % 89.8 H Lymphocytes % 5.0 L Monocytes % 4.3 Eosinophils % 0.8 L Basophils % 0.1 PT 23.0 H INR 2.32 H Sodium 134 L Potassium 4.7 Chloride 103 Carbon Dioxide 21 Anion Gap 14.7 BUN 32 H Creatinine 1.84 H BUN/Creatinine Ratio 17.4 Random Glucose 146 H Serum Osmolality 277.8 Lactic Acid Calcium 8.8 Total Bilirubin 0.9 AST 34 ALT 28 Alkaline Phosphatase 47 Serum Total Protein 7.5 Albumin 4.2 Globulin 3.3 Albumin/Globulin Ratio 1.3 Urine Color Urine Appearance Urine pH Ur Specific [place] Urine Protein Urine Glucose (UA) Urine Ketones Urine Blood Urine Nitrite Urine Bilirubin Urine Urobilinogen Ur Leukocyte Esterase Urine RBC Urine WBC Ur Epithelial Cells Amorphous Sediment Urine Bacteria 12/26/18 12/26/18 16:55 17:10 WBC RBC Hgb Hct MCV MCH MCHC RDW Plt Count MPV Absolute Neuts (auto) Absolute Lymphs (auto) Absolute Monos (auto) Absolute Eos (auto) Absolute Basos (auto) Neutrophils % Lymphocytes % Monocytes % Eosinophils % Basophils % PT INR Sodium Potassium Chloride Carbon Dioxide Anion Gap BUN Creatinine BUN/Creatinine Ratio Random Glucose Serum Osmolality Lactic Acid 1.1 Calcium Total Bilirubin AST ALT Alkaline Phosphatase Serum Total Protein Albumin Globulin Albumin/Globulin Ratio Urine Color Yellow Urine Appearance Clear Urine pH 5.0 Ur Specific [place] 1.015 Urine Protein Negative Urine Glucose (UA) Negative Urine Ketones Negative Urine Blood Negative Urine Nitrite Negative Urine Bilirubin Negative Urine Urobilinogen 0.2 Ur Leukocyte Esterase Negative Urine RBC 1-3 Urine WBC 0 Ur Epithelial Cells 0-1 Amorphous Sediment 1+ Urine Bacteria Rare discuss hospital admit for obs patient agreed with plan - EKG/XRAY/CT XRAY: chest - no acute changes noted CT Ordered: Yes - abd/p-bilateral perinephric stranding Departure - Departure Clinical Impression: Bilateral flank pain, Pyelonephritis, unspecified, History of heart valve replacement, History of gastric bypass Time of Disposition: 19:01 Disposition: Admit Patient Condition: Fair Departure Forms: ED Discharge - Pt. Copy, Patient Portal Self Enrollment Referrals: Chirag Echeverria III, MD [Primary Care Provider] - 1-2 Weeks Home Medications: Ambulatory Orders Ramipril 10 mg PO BID 01/28/14 Metoprolol Tartrate 50 mg PO BID 08/29/14 Simvastatin [Zocor] 80 mg PO BEDTIME 05/23/15 Spironolactone [Aldactone] 50 mg PO DAILY@0700 05/23/15 Insulin Regular (Human) [Novolin R] 100 unit SUBCU .SLIDING SCALE 10/30/15 Furosemide 40 mg PO DAILY@1200 11/25/15 Omeprazole Magnesium [Prilosec Otc] 20 mg PO BID 08/14/16 Potassium Chloride [Potassium Chloride ER] 10 meq PO 04/25/17 Pramipexole Dihydrochloride [Pramipexole Dihydrochlori] 0.125 mg PO 04/25/17 Warfarin Sodium [Coumadin] 5 mg PO 04/25/17 Acetamin W/Cod #3 Tab [Tylenol w/CODEINE #3] 1 ea PO Q6HR PRN #40 tab 08/09/17 Amoxicillin & Pot Clavulanate [Augmentin Tab] 875 mg PO BID #20 tab 06/20/18 Decision To Admit - Decistion To Admit Decision to Admit Reason: Admit from ER Decision to Admit Date: 12/26/18 Decision to Admit Time: 18:57 - D/W Kumar Miller-ANP/Hospitalist
[2018-12-26] MEDS ORDERED: cefTRIAXone SODIUM 1 GM in SODIUM CHL 0.9% 50ML MIN-BAG+ 50 ML IVPB ONE (18:54)
[2018-12-26] MEDS ORDERED: SODIUM CHL 0.9% 50ML MIN-BAG+ 50 ML IVPB ONE ×2 (19:18→21:05)
[2018-12-26] MEDS ORDERED: cefTRIAXone SODIUM 1 GM VIAL ONE (19:18)
--- NOTE | 2018-12-26 20:04 | HP ---
SUPERVISING PHYSICIAN: Celio Norris M.D. CHIEF COMPLAINT: Fever and chills. HISTORY OF PRESENT ILLNESS: This is a 68 year-old male patient who came into the Emergency Room with complaints of fever and chills as well as bilateral flank pain. He says about 1:00 PM today he started to feel chills but it progressively worsened. Additionally he had some complaints of bilateral flank pain. He does have a history of chronic back pain but this is not quite the same. In the E. R., his workup included labs as well as films. His film that was done was actually a CT abdomen and pelvis. This showed bilateral perinephric stranding consistent with pyelonephritis. His white count was elevated at 13.1 with a left shift of 89.8. Hemoglobin 12.5, hematocrit 36.0, platelet count 159. INR is 2.32 and he takes Warfarin chronically for a previous valve surgery. His BUN and creatinine are elevated at 32 and 1.84 respectively with a mild reduction in his sodium at 134. Due to the fact he has pyelonephritis he has been referred for admission. On examination, the patient is alert and oriented. Appears a little bit weak but otherwise in no distress. PAST MEDICAL HISTORY: 1. Coronary artery disease. 2. Aortic valve dysfunction. 3. Diabetes mellitus type 2. 4. Obesity. 5. Hyperlipidemia. 6. Congestive heart failure. PAST SURGICAL HISTORY: 1. Coronary artery bypass graft. 2. Mechanical aortic valve replacement. 3. Tonsillectomy. 4. Hernia repair. 5. Cholecystectomy. 6. Left thumb repair. CURRENT MEDICATIONS: Please see Med. Rec. list in the computer. ALLERGIES: NO KNOWN DRUG ALLERGIES. ALLERGY TO ADHESIVE TAPE. FAMILY HISTORY: Reviewed and noncontributory. SOCIAL HISTORY: No smoking. No drinking. No illicit drugs. He is . REVIEW OF SYSTEMS: CONSTITUTIONAL: Positive for fever and chills. No recent weight loss or weight gain. HEENT: No headaches, vision changes, ear pain, nasal congestion or throat pain. PULMONARY: No cough, hemoptysis or pleuritic chest pain. CARDIOVASCULAR: No chest pains or palpitations but he does have some peripheral edema. GASTROINTESTINAL: No nausea, vomiting, diarrhea, constipation or abdominal pain. GENITOURINARY: No dysuria, frequency but bilateral flank pain. MUSCULOSKELETAL: Positive for back pain. No joint pain or muscle cramps. ENDOCRINE: No polydipsia, polyuria or polyphagia. No heat or cold intolerance. SKIN: No rashes, lesions or wounds. NEUROLOGIC: No syncope or paresthesias. PHYSICAL EXAMINATION: VITAL SIGNS: Blood pressure 135/67, heart rate 72, respiratory rate 18, temperature 98.8, oxygen saturation 95%. GENERAL: Mr. Chong is a 68 year-old male patient in no active distress. CHEST: Lungs are a little bit diminished at the bases but otherwise clear to auscultation bilaterally. CARDIOVASCULAR: Regular rate and rhythm. Normal S1 and S2. Prosthetic click heard upon auscultation. ABDOMEN: Soft. Positive bowel sounds. No tenderness to palpation. He does have some bilateral CVA tenderness. GENITOURINARY: No external genital abnormality. Prostate exam was done in the Emergency Room. Exam was reported as normal. EXTREMITIES: Lower extremities with some edema, 2+ pulses. Capillary refill less than 2 seconds. NEUROLOGIC: The patient is alert and oriented. LABORATORY AND FILMS: Discussed in the History of Present Illness. ASSESSMENT: 1. Bilateral pyelonephritis. 2. Acute kidney injury. 3. History of heart disease on anticoagulant therapy due to mechanical valve. 4. Diabetes mellitus type 2. 5. Hypertension. PLAN: At this time we will admit the patient and place him on empiric antibiotics. Cultures have been done. We will monitor the results and adjust antibiotics accordingly. Will continue the patient's Warfarin and place him on PPI for GI ulcer prophylaxis. Repeat labs in the morning and evaluate daily for clinical improvement. #[id number] [facility]
[2018-12-26] MEDS ORDERED: HYDROmorphone HCL INJ 2 MG/ML VIAL IV ONE (20:07)
[2018-12-26] MEDS ORDERED: GLUCAGON INJ 1 MG VIAL SUBCU PRN (21:03)
[2018-12-26] MEDS ORDERED: DEXTROSE 50% 25 GM/50 ML SYG IV PRN (21:03)
[2018-12-26] MEDS ORDERED: CEFEPIME 2 GM VIAL ONE (21:05)
[2018-12-26] MEDS: SODIUM CHLORIDE 0.9% 1000ML 1,000 ML IVS PRN (21:19)
[2018-12-26] MEDS: SODIUM CHLORIDE 0.9% (FLUSH) 10 ML SYG IV PRN (21:23)
[2018-12-26] MEDS: CEFEPIME 2 GM in SODIUM CHL 0.9% 50ML MIN-BAG+ 50 ML IVPB SCH (21:23)
[2018-12-26] MEDS: IV SET AND CAP CHANGE INJ INJ SCH (21:23)
[2018-12-26] MEDS ORDERED: RAMIPRIL 2.5 MG CAP PO SCH (22:00)
[2018-12-26] MEDS ORDERED: WARFARIN SODIUM 5 MG TAB PO SCH (22:00)
[2018-12-26] MEDS ORDERED: WARFARIN SODIUM 5 MG TAB ONE (22:20)
[2018-12-26] MEDS: METOPROLOL TARTRATE 50 MG TAB PO SCH (22:28)
[2018-12-27] MEDS ORDERED: RAMIPRIL 2.5 MG CAP PO SCH ×2 (04:00→08:00)
[2018-12-27] MEDS: INSULIN LISPRO 100 UNITS/ML PEN SUBCU SCH ×4 (07:15→21:02)
[2018-12-27] MEDS: RAMIPRIL 2.5 MG CAP PO SCH ×2 (08:55→12:14)
[2018-12-27] MEDS ORDERED: HYDROmorphone HCL INJ 2 MG/ML VIAL IV PRN (09:08)
[2018-12-27] MEDS ORDERED: METOPROLOL TARTRATE 25 MG TAB ONE (09:11)
[2018-12-27] MEDS ORDERED: SODIUM CHL 0.9% 50ML MIN-BAG+ 50 ML IVPB ONE ×2 (09:12→20:22)
[2018-12-27] MEDS ORDERED: CEFEPIME 2 GM VIAL ONE ×2 (09:12→20:22)
[2018-12-27] MEDS: CEFEPIME 2 GM in SODIUM CHL 0.9% 50ML MIN-BAG+ 50 ML IVPB SCH ×2 (09:15→21:09)
[2018-12-27] MEDS: METOPROLOL TARTRATE 50 MG TAB PO SCH ×2 (09:17→21:08)
[2018-12-27] MEDS: SODIUM CHLORIDE 0.9% 1000ML 1,000 ML IVS PRN ×2 (09:30→22:25)
[2018-12-27] MEDS: INSULIN,ISOP(HUMAN(NPH) 100 UNITS/ML PEN SUBCU SCH (09:44)
[2018-12-27] MEDS: levoFLOXacin 750MG IV 750 MG in PREMIX BAG 1 BAG IVPB SCH (11:21)
[2018-12-27] MEDS: SPIRONOLACTONE 25 MG TAB PO SCH (12:14)
[2018-12-27] MEDS: OMEPRAZOLE CAP 20 MG CAP PO SCH (12:14)
[2018-12-27] MEDS: ASPIRIN (ENTERIC COATED) 81 MG TAB PO SCH (12:14)
[2018-12-27] MEDS: WARFARIN SODIUM 5 MG TAB PO SCH (12:15)
--- NOTE | 2018-12-27 13:16 | PN ---
SUPERVISING PHYSICIAN: Celio Norris MD DATE: 12/27/18 SUBJECTIVE: The patient is feeling a little bit achy today. He still has the bilateral CVA tenderness. He is currently afebrile, however, and this morning, he had a 99.3 temperature about 6 o'clock. However, he is in no distress. OBJECTIVE: VITAL SIGNS: Blood pressure 119/54. Heart rate 63. Respiratory rate 18. Temperature 98.6. Oxygen saturation 94%. GENERAL: Mr. Chong is a 68-year-old male patient in no active distress currently. NEUROLOGIC: Alert and oriented. LUNGS: Clear to auscultation bilaterally. CARDIOVASCULAR: Regular rate and rhythm with a prosthetic click auscultated. ABDOMEN: Soft. Positive bowel sounds. Bilateral CVA tenderness still exists. EXTREMITIES: Lower extremities with 2+ edema, right greater than left. Pulses 2+. Capillary refill is less than 2 seconds. LABORATORY: White count 12.3 which is improved from yesterday of 13.1. Hemoglobin 11.1, hematocrit 31.4, platelet count 123. Chemistry shows sodium 133, potassium 4.5, chloride 104, CO2 20, BUN 32, creatinine 1.68, glucose 201, calcium 7.9. ASSESSMENT: 1. Bilateral pyelonephritis. 2. Acute kidney injury. 3. History of heart disease on anticoagulant therapy due to mechanical valve. 4. Diabetes mellitus, type 2. 5. Hypertension. PLAN: I am going to go ahead and add Levaquin to his antibiotic regimen. I discussed this with Dr. Norris. We will watch the INR closely for any elevations that would require review of his warfarin dosing. Clinically, he is about the same as yesterday. We will recheck labs in the morning including INR. #[id number] [facility]
[2018-12-27] MEDS: DOCUSATE SODIUM 100 MG CAP PO SCH (21:08)
[2018-12-27] MEDS: SIMVASTATIN 20 MG TAB PO SCH (21:08)
[2018-12-27] MEDS: PRAMIPEXOLE 0.25 MG TAB PO SCH (21:09)
[2018-12-28] MEDS: INSULIN LISPRO 100 UNITS/ML PEN SUBCU SCH ×4 (07:08→21:43)
[2018-12-28] MEDS ORDERED: SODIUM CHL 0.9% 50ML MIN-BAG+ 50 ML IVPB ONE (07:19)
[2018-12-28] MEDS ORDERED: CEFEPIME 2 GM VIAL ONE (07:20)
[2018-12-28] MEDS: RAMIPRIL 2.5 MG CAP PO SCH ×2 (07:45→12:18)
[2018-12-28] MEDS: INSULIN,ISOP(HUMAN(NPH) 100 UNITS/ML PEN SUBCU SCH (09:05)
[2018-12-28] MEDS: METOPROLOL TARTRATE 50 MG TAB PO SCH ×2 (09:05→20:23)
[2018-12-28] MEDS: DOCUSATE SODIUM 100 MG CAP PO SCH ×2 (09:05→20:23)
[2018-12-28] MEDS: CEFEPIME 2 GM in SODIUM CHL 0.9% 50ML MIN-BAG+ 50 ML IVPB SCH (09:07)
[2018-12-28] MEDS ORDERED: SODIUM CHLORIDE 0.9% (FLUSH) 10 ML SYG IV ONE (09:38)
[2018-12-28] MEDS: ASPIRIN (ENTERIC COATED) 81 MG TAB PO SCH (12:18)
[2018-12-28] MEDS: levoFLOXacin 750MG IV 750 MG in PREMIX BAG 1 BAG IVPB SCH (12:18)
[2018-12-28] MEDS: WARFARIN SODIUM 5 MG TAB PO SCH (12:19)
[2018-12-28] MEDS: OMEPRAZOLE CAP 20 MG CAP PO SCH (12:19)
[2018-12-28] MEDS: SPIRONOLACTONE 25 MG TAB PO SCH (12:19)
--- NOTE | 2018-12-28 13:43 | US ---
EXAM DESCRIPTION: Venous,Lower Extremity RT: ULTRASOUND. CLINICAL HISTORY: calf pain and swollen compared to left. COMPARISON: CT scan abdomen and pelvis 12/26/2018. TECHNIQUE: Garrison-scale and doppler sonographic evaluation of the deep venous system of the right lower extremity. FINDINGS: Doppler evaluation shows normal color flow and normal phasicity and augmentation of the right common femoral vein, femoral vein, popliteal vein, greater saphenous vein, peroneal, and posterior tibial vein. The right lower extremity deep veins were completely compressible; normal occlusion with transducer pressure. Garrison-scale survey showed no echogenic thrombus within these veins. IMPRESSION: 1. Duplex ultrasound evaluation of the right lower extremity deep venous system showing no evidence of thrombosis. Electronically signed by: Neo Funes MD 12/28/2018 1:42 PM CDT
[2018-12-28] MEDS: PRAMIPEXOLE 0.25 MG TAB PO SCH (20:23)
[2018-12-28] MEDS: SIMVASTATIN 20 MG TAB PO SCH (20:23)
[2018-12-28] MEDS: SODIUM CHLORIDE 0.9% (FLUSH) 10 ML SYG IV PRN ×2 (20:24→21:43)
[2018-12-28] MEDS ORDERED: VANCOMYCIN HCL INJ 1,000 MG, VANCOMYCIN HCL INJ 500 MG in SODIUM CHLORIDE 0.9% 250ML 25... IVPB ONE (21:11)
[2018-12-28] MEDS ORDERED: VANCOMYCIN HCL INJ 1,000 MG VIAL IVPB ONE (21:27)
[2018-12-28] MEDS ORDERED: SODIUM CHLORIDE 0.9% 250ML 250 ML ONE (21:27)
[2018-12-28] MEDS ORDERED: VANCOMYCIN HCL INJ 500 MG VIAL ONE ×2 (21:27→21:29)
[2018-12-29] MEDS: INSULIN LISPRO 100 UNITS/ML PEN SUBCU SCH ×4 (07:17→21:05)
[2018-12-29] MEDS ORDERED: VANCOMYCIN PER PHARMACY INJ SCH (08:00)
--- NOTE | 2018-12-29 09:10 | PN ---
SUPERVISING PHYSICIAN: Celio Norris MD DATE: 12/28/18 SUBJECTIVE: The patient continues to have some pain in his left flank compared to the right. He says it is improved a little bit from yesterday. He has had some nausea this morning. He has been afebrile for 24 hours. OBJECTIVE: VITAL SIGNS: T-max 99.6. Pulse 60. Blood pressure 120/63. Respirations 16 to 17. Saturation 97% on room air. I&Os show positive balance of 1324 with weight 101.3 kg. GENERAL: The patient appears to be resting comfortably in no acute distress. CHEST: Lung sounds are clear to auscultation bilaterally. HEART: Regular rate and rhythm. ABDOMEN: Soft. Positive bowel sounds. There is continued bilateral CVA tenderness. EXTREMITIES: Right Lower leg shows leg 2+ edemas compared to the left without edema. NEUROLOGIC: Alert and oriented times three. LABORATORY: White count now normalized at 6,400, hemoglobin 10.3, hematocrit 29.4, platelet count 101,000. Differential resolving the left shift. Coagulation studies show INR 2.4. Chemistry shows mild hyponatremia with sodium 134. BUN 24. Creatinine is improving and is down to 1.59. Blood sugars remain fairly stable between 113 and 223. Calcium 7.7. MICROBIOLOGY: Blood cultures remain negative after 48 hours. RADIOLOGY: Lower extremity ultrasound of the right leg per radiologic interpretation is without any evidence of thrombus. ASSESSMENT: 1. Bilateral pyelonephritis with the patient showing doo response to therapy, having been on both cefepime and Levaquin with the patient being transitioned just to Levaquin. 2. Acute kidney injury, likely secondary to #1, showing return to baseline levels with review of the chart showing the patient to be between 1.5 and 1.7. 3. History of heart disease on anticoagulant therapy with mechanical valve, near therapeutic levels on INR. 4. Diabetes mellitus, type 2, stable. 5. Hypertension, stable. PLAN: I am anticipating hopefully being able to discharge tomorrow. His blood cultures remain negative. He has now normalized his white count. Therefore, we will go ahead and change him from cefepime and Levaquin to just Levaquin and monitor closely. Hopefully, again, we will be able to discharge tomorrow. We will follow his INRs and followup BNP. We will hold off on CBC because he has normalized his white count. Again, we will anticipate hopefully discharging tomorrow to continue with outpatient management with Levaquin for treatment of bilateral pyelonephritis. Until then, we will continue to monitor and treat as needed. #[id number] [facility]
[2018-12-29] MEDS: RAMIPRIL 2.5 MG CAP PO SCH ×2 (09:54→12:46)
[2018-12-29] MEDS: METOPROLOL TARTRATE 50 MG TAB PO SCH ×2 (09:54→20:16)
[2018-12-29] MEDS: INSULIN,ISOP(HUMAN(NPH) 100 UNITS/ML PEN SUBCU SCH (09:54)
[2018-12-29] MEDS: DOCUSATE SODIUM 100 MG CAP PO SCH ×2 (09:54→20:14)
[2018-12-29] MEDS: VANCOMYCIN HCL INJ 1,000 MG, VANCOMYCIN HCL INJ 500 MG in SODIUM CHLORIDE 0.9% 250ML 25... IVPB SCH ×2 (10:23→22:06)
[2018-12-29] MEDS: WARFARIN SODIUM 3 MG TAB PO SCH (12:45)
[2018-12-29] MEDS: OMEPRAZOLE CAP 20 MG CAP PO SCH (12:45)
[2018-12-29] MEDS: SPIRONOLACTONE 25 MG TAB PO SCH (12:45)
[2018-12-29] MEDS: levoFLOXacin 750MG IV 750 MG in PREMIX BAG 1 BAG IVPB SCH ×2 (12:46→12:52)
[2018-12-29] MEDS: ASPIRIN (ENTERIC COATED) 81 MG TAB PO SCH (12:46)
[2018-12-29] MEDS ORDERED: VANCOMYCIN HCL INJ 500 MG VIAL ONE (19:38)
[2018-12-29] MEDS ORDERED: SODIUM CHLORIDE 0.9% 250ML 250 ML ONE (19:39)
[2018-12-29] MEDS ORDERED: VANCOMYCIN HCL INJ 1,000 MG VIAL IVPB ONE (19:40)
[2018-12-29] MEDS: IV SET AND CAP CHANGE INJ INJ SCH (20:13)
[2018-12-29] MEDS: PRAMIPEXOLE 0.25 MG TAB PO SCH (20:14)
[2018-12-29] MEDS: SIMVASTATIN 20 MG TAB PO SCH (20:16)
--- NOTE | 2018-12-29 20:17 | PN ---
DATE: 12/29/18 SUPERVISING PHYSICIAN: Celio Norris M.D. SUBJECTIVE: The patient reports that his pain in his flank area is now gone. Last night it was noted that his right leg, although it has been swollen and checked for DVT, showed some evidence of cellulitis with increasing redness with some tenderness to palpation along with some warm to touch. We did start him on vancomycin last night and discussed plan of care with him. He has had no nausea, vomiting or diarrhea. He continues to have a good appetite and has been afebrile. OBJECTIVE: VITAL SIGNS: Temperature 98.5, pulse 53, blood pressure 127/59, respirations 16, satting 96% on room air. I's and O's show a negative balance of 1135. Weight is 101.7 kg. GENERAL: The patient is resting comfortably, just finished lunch. He is alert and appears to be in no acute distress. CHEST: Lungs are clear to auscultation. HEART: Regular rate and rhythm. ABDOMEN: Soft, non-tender with no notable CVA tenderness today. EXTREMITIES: right lower leg, right compared to the left is red and warm to touch, tender to palpation with 2 to 3+ edema. NEUROLOGIC: He is alert and oriented times three. LABORATORY: Chemistries show continued improving creatinine. It is down to 1.36. Electrolytes are showing to be within normal limits. Glucose has ranged between 113 and 192. PT 20, INR 2.02. MICROBIOLOGY: Blood culture has been negative after 3 days. RADIOLOGY: No additional radiographic studies. ASSESSMENT: 1. Bilateral pyelonephritis showing good response to therapy initially with Cefepime and Levaquin now with the patient on IV Levaquin. 2. Acute kidney injury secondary to #1, showing to return to baseline levels. 3. Developing cellulitis of the right lower extremity without any evidence of deep venous thrombosis with the patient remaining on anticoagulation therapy. 4. Subtherapeutic INR with the patient on Warfarin continuing to need further monitoring and adjustment of his Warfarin level. 5. Diabetes mellitus, type 2, stable. 6. Hypertension, stable. PLAN: I was hoping we would discharge him today, but since last night he developed the cellulitis to his right lower extremity I have started him on vancomycin per Pharmacy protocol. Anticipate probable at least another 2 days of antibiotic therapy before we can transition to outpatient management. His INR did drop today and I have increased his Warfarin back to his normal dosing of 9 mg every other day except for Mondays. Will recheck an INR in the morning. Will hold off on BMP at this point as he has shown to be at baseline levels. Again hopefully be able to discharge within the next 48 hours. Until then continue to monitor and treat as needed. #[id number] [facility]
[2018-12-29] MEDS: SODIUM CHLORIDE 0.9% (FLUSH) 10 ML SYG IV PRN (22:08)
[2018-12-30] MEDS: INSULIN LISPRO 100 UNITS/ML PEN SUBCU SCH ×4 (07:14→20:52)
[2018-12-30] MEDS: METOPROLOL TARTRATE 50 MG TAB PO SCH ×2 (08:09→20:44)
[2018-12-30] MEDS: INSULIN,ISOP(HUMAN(NPH) 100 UNITS/ML PEN SUBCU SCH (08:10)
[2018-12-30] MEDS: RAMIPRIL 2.5 MG CAP PO SCH ×2 (08:10→11:32)
[2018-12-30] MEDS: DOCUSATE SODIUM 100 MG CAP PO SCH ×2 (08:10→20:45)
[2018-12-30] MEDS ORDERED: VANCOMYCIN HCL INJ 500 MG VIAL ONE ×2 (09:17→19:51)
[2018-12-30] MEDS ORDERED: SODIUM CHLORIDE 0.9% 250ML 250 ML ONE ×2 (09:17→19:51)
[2018-12-30] MEDS ORDERED: VANCOMYCIN HCL INJ 1,000 MG VIAL IVPB ONE ×2 (09:18→19:52)
[2018-12-30] MEDS: VANCOMYCIN HCL INJ 1,000 MG, VANCOMYCIN HCL INJ 500 MG in SODIUM CHLORIDE 0.9% 250ML 25... IVPB SCH (09:59)
[2018-12-30] MEDS: ASPIRIN (ENTERIC COATED) 81 MG TAB PO SCH (11:32)
[2018-12-30] MEDS: OMEPRAZOLE CAP 20 MG CAP PO SCH (11:32)
[2018-12-30] MEDS: SPIRONOLACTONE 25 MG TAB PO SCH (11:32)
[2018-12-30] MEDS ORDERED: FUROSEMIDE 40 MG TAB PO ONE (11:38)
[2018-12-30] MEDS ORDERED: POTASSIUM CHLORIDE 10 MEQ TAB PO ONE (12:12)
[2018-12-30] MEDS: POTASSIUM CHLORIDE 10 MEQ TAB PO SCH (12:19)
[2018-12-30] MEDS: levoFLOXacin 750MG IV 750 MG in PREMIX BAG 1 BAG IVPB SCH (13:55)
[2018-12-30] MEDS: SIMVASTATIN 20 MG TAB PO SCH (20:44)
[2018-12-30] MEDS: PRAMIPEXOLE 0.25 MG TAB PO SCH (20:44)
--- NOTE | 2018-12-30 21:13 | PN ---
DATE: 12/30/18 SUPERVISING PHYSICIAN: Celio Norris M.D. SUBJECTIVE: The patient is no longer having any significant pain in his back. His right leg seems to be improving again on vancomycin. He has had a little bit of diarrhea but nothing major. He has had no nausea or vomiting and he remains afebrile. OBJECTIVE: VITAL SIGNS: Temperature 98.1, pulse 57, blood pressure 124/73, respirations 15, satting 95% on room air. I's and O's show a negative balance of 75 with 2100 in, 2175 out. Weight is up 102.4 kg. GENERAL: The patient appears to be in no acute distress. He is resting comfortably. CHEST: Lungs remain clear to auscultation. HEART: Regular rate and rhythm. ABDOMEN: Soft, non-tender. Positive bowel sounds. EXTREMITIES: Without any notable cyanosis or clubbing. His right leg compared to the left shows 1+ edema which is improved from yesterday. There is still a fair amount of ecchymosis and old dark tone to the skin consistent with chronic edema. No weeping or sores are noted. Distally pulses are strong bilaterally. Capillary refill is brisk. NEUROLOGIC: He is alert and oriented times three. LABORATORY: White count is now stabilized at 5,100, hemoglobin and hematocrit are stable at 10.2 and 29.6, platelet count at 128,000. Differential shows to be without a left shift. Coagulation studies showed an improving INR to 2.24. Chemistries show continuation of his creatinine returning to baseline levels at 1.33. Other electrolytes are within normal limits except for carbon dioxide was slightly low at 20 with BUN at 17. Anion gap was normal. Blood sugars remain stable between 116 and 185, calcium 7.8. Blood cultures are negative at 4 days. RADIOLOGY: No additional radiographic studies. ASSESSMENT: 1. Bilateral pyelonephritis responding to therapy with Cefepime and now on monotherapy with Levaquin. 2. Acute kidney injury secondary to #1, returning to baseline levels with some exacerbation due to diabetic therapy. 3. Cellulitis of the right lower extremity without any evidence of deep venous thrombosis noted on Doppler ultrasound with the patient showing subtherapeutic anticoagulation but improving and showing response to vancomycin. 4. Continued subtherapeutic INR with Warfarin levels continuing to be monitored Warfarin dose increased to his home dosing. 5. Diabetes mellitus, type 2 showing to be stable. 6. Hypertension, stable. PLAN: Will go ahead and continue with parenteral antibiotics to include Levaquin and vancomycin per Pharmacy protocol. He has been having a little diarrhea. We have got him on a probiotic. His creatinine seems to be back to baseline levels. He is showing a little bit of increase in his weight and I have started him back on his Lasix, but will just do 80 mg today and start him back on 120 mg in the morning. Will continue to monitor his INR and adjust his Warfarin as needed. I anticipate if he continues to show good improvement we can probably discharge him tomorrow with continuation of antibiotic therapy on oral Levaquin and doxycycline. Until we can discharge to outpatient management will continue to monitor and treat as needed. #[id number] [facility]
[2018-12-30] MEDS ORDERED: VANCOMYCIN HCL INJ 1,000 MG, VANCOMYCIN HCL INJ 250 MG in SODIUM CHLORIDE 0.9% 250ML 25... IVPB SCH (21:34)
[2018-12-30] MEDS: VANCOMYCIN HCL INJ 1,000 MG, VANCOMYCIN HCL INJ 250 MG in SODIUM CHLORIDE 0.9% 250ML 25... IVPB SCH (21:51)
[2018-12-31] MEDS: POTASSIUM CHLORIDE 10 MEQ TAB PO SCH ×2 (06:18→12:39)
[2018-12-31] MEDS: INSULIN LISPRO 100 UNITS/ML PEN SUBCU SCH ×4 (07:15→21:19)
[2018-12-31] MEDS: RAMIPRIL 2.5 MG CAP PO SCH ×2 (08:44→12:39)
[2018-12-31] MEDS: METOPROLOL TARTRATE 50 MG TAB PO SCH ×2 (08:44→21:19)
[2018-12-31] MEDS: INSULIN,ISOP(HUMAN(NPH) 100 UNITS/ML PEN SUBCU SCH (08:44)
[2018-12-31] MEDS: DOCUSATE SODIUM 100 MG CAP PO SCH ×2 (08:44→21:19)
[2018-12-31] MEDS: FUROSEMIDE 40 MG TAB PO SCH (08:44)
[2018-12-31] MEDS ORDERED: SODIUM CHLORIDE 0.9% 250ML 250 ML ONE ×2 (09:53→19:47)
[2018-12-31] MEDS ORDERED: VANCOMYCIN HCL INJ 500 MG VIAL ONE ×2 (09:53→19:46)
[2018-12-31] MEDS ORDERED: VANCOMYCIN HCL INJ 1,000 MG VIAL IVPB ONE ×2 (09:53→19:49)
[2018-12-31] MEDS: VANCOMYCIN HCL INJ 1,000 MG, VANCOMYCIN HCL INJ 250 MG in SODIUM CHLORIDE 0.9% 250ML 25... IVPB SCH ×2 (10:14→21:29)
[2018-12-31] MEDS: SPIRONOLACTONE 25 MG TAB PO SCH (12:39)
[2018-12-31] MEDS: ASPIRIN (ENTERIC COATED) 81 MG TAB PO SCH (12:39)
[2018-12-31] MEDS: WARFARIN SODIUM 3 MG TAB PO SCH (12:39)
[2018-12-31] MEDS: OMEPRAZOLE CAP 20 MG CAP PO SCH (12:40)
[2018-12-31] MEDS: levoFLOXacin 750MG IV 750 MG in PREMIX BAG 1 BAG IVPB SCH (13:55)
--- NOTE | 2018-12-31 15:47 | PN ---
DATE: 12/31/18 SUPERVISING PHYSICIAN: Celio Norris M.D. SUBJECTIVE: The patient is sitting up in bed. His is at the bedside. Still complains of some pain in that right leg and swelling. I have encouraged him to elevate his leg. He feels that the leg has improved some but is quite concerned that he has had this several times in the past. Denies any shortness of breath or chest pain. OBJECTIVE: VITAL SIGNS: Temperature 97.3, heart rate 54, blood pressure 131/73, respiratory rate 16, O2 sat 94% on room air. RESPIRATORY: Essentially clear to auscultation bilaterally. CARDIAC: Regular rate and rhythm. GASTROINTESTINAL: Abdomen is soft, nondistended, non-tender. Bowel sounds are positive. EXTREMITIES: The right lower extremity continues to be quite edematous as well as erythematous. He does have a few places of ecchymosis on that area. There is no drainage or fluctuance noted. His right leg is edematous from just distal to the knee down to the ankle. Bilateral pedal pulses are +1. NEUROLOGIC: He is awake, alert and oriented times three. LABORATORY: INR is 2.02. Electrolytes are within normal limits. Creatinine has stabilized at 1.33, calcium is slightly low at 7.9. Preliminary blood cultures show no growth after 4 days. All other labs and films have been reviewed via the EMR. ASSESSMENT: 1. Bilateral pyelonephritis responding to therapy with Cefepime and now on monotherapy with Levaquin. 2. Acute kidney injury secondary to #1, returning to baseline levels with some exacerbation due to diabetic therapy. 3. Cellulitis of the right lower extremity without any evidence of deep venous thrombosis noted on Doppler ultrasound with the patient showing subtherapeutic anticoagulation but improving and showing response to vancomycin. 4. Continued subtherapeutic INR with Warfarin levels continuing to be monitored Warfarin dose increased to his home dosing. 5. Diabetes mellitus, type 2 showing to be stable. 6. Hypertension, stable. PLAN: We will continuer the patient supportive care. I will give him 1 more day of IV antibiotic therapy and hopefully he can be discharged home tomorrow with close followup with Dr. Echeverria. I will also recheck his lab in the morning. Will continue to monitor closely and follow as needed. #[id number] [facility]
[2018-12-31] MEDS: SIMVASTATIN 20 MG TAB PO SCH (21:19)
[2018-12-31] MEDS: PRAMIPEXOLE 0.25 MG TAB PO SCH (21:19)
[2018-12-31] MEDS: SODIUM CHLORIDE 0.9% (FLUSH) 10 ML SYG IV PRN (21:29)
[2019-01-01] MEDS: POTASSIUM CHLORIDE 10 MEQ TAB PO SCH ×2 (06:33→12:56)
[2019-01-01] MEDS: INSULIN LISPRO 100 UNITS/ML PEN SUBCU SCH ×2 (07:22→11:22)
[2019-01-01] MEDS: FUROSEMIDE 40 MG TAB PO SCH (07:24)
[2019-01-01] MEDS: RAMIPRIL 2.5 MG CAP PO SCH ×2 (07:24→12:56)
[2019-01-01] MEDS: INSULIN,ISOP(HUMAN(NPH) 100 UNITS/ML PEN SUBCU SCH (08:47)
[2019-01-01] MEDS: DOCUSATE SODIUM 100 MG CAP PO SCH (08:48)
[2019-01-01] MEDS: METOPROLOL TARTRATE 50 MG TAB PO SCH (08:48)
[2019-01-01 10:17] VITALS: BP 132/65; TEMP 98.5; O2SAT 95
[2019-01-01] MEDS: levoFLOXacin 750MG IV 750 MG in PREMIX BAG 1 BAG IVPB SCH (11:18)
[2019-01-01] MEDS ORDERED: WARFARIN SODIUM 3 MG TAB PO SCH (12:00)
[2019-01-01] MEDS: OMEPRAZOLE CAP 20 MG CAP PO SCH (12:56)
[2019-01-01] MEDS: SPIRONOLACTONE 25 MG TAB PO SCH (12:56)
[2019-01-01] MEDS: ASPIRIN (ENTERIC COATED) 81 MG TAB PO SCH (12:56)
[2019-01-01] MEDS ORDERED: VANCOMYCIN HCL INJ 1,000 MG in SODIUM CHLORIDE 0.9% 250ML 250 ML IVPB SCH (22:00)
--- NOTE | 2019-01-02 10:37 | DS ---
SUPERVISING PHYSICIAN: Celio Norris MD DISCHARGE DIAGNOSIS: 1. Bilateral pyelonephritis responding to therapy with cefepime and now on monotherapy with Levaquin. 2. Acute kidney injury secondary to #1, returning to baseline levels with some exacerbation due to diabetic therapy. 3. Cellulitis of the right lower extremity without any evidence of deep venous thrombosis noted on Doppler ultrasound with the patient showing subtherapeutic anticoagulation but improving and showing response to vancomycin. 4. Continued subtherapeutic INR with warfarin levels continuing to be monitored Warfarin dose increased to his home dosing. 5. Diabetes mellitus, type 2, stable. 6. Hypertension, stable. HISTORY OF PRESENT ILLNESS: This is a 68 year-old male patient who came into the Emergency Room on the date of admission with complaints of fever and chills as well as bilateral flank pain. He says about 1:00 PM that day he started to have chills that progressively worsened. He has a history of chronic back pain, but this is not the same. In the ER, had a CT abdomen and pelvis. This showed bilateral perinephric stranding consistent with pyelonephritis. His white count was elevated at 13.1 with a left shift. Hemoglobin 12.5, hematocrit 36.0, platelet count 159. INR is 2.32 and he takes warfarin chronically for a previous valve surgery. His BUN and creatinine were elevated at 32 and 1.84 respectively. He had a mild reduction in his sodium at 134. He was admitted to the hospital for bilateral pyelonephritis. HOSPITAL COURSE: The patient was placed in the hospital and placed on empiric antibiotics. Cultures were done. The INR was also monitored for his warfarin therapy. He was initially started on cefepime and Levaquin was added to his regimen. He then had some complaints of right lower leg pain. Lower extremity ultrasound was negative for DVT. His right leg became more erythematous and he has a history of cellulitis in that right lower leg. He was then started on vancomycin. Cellulitis the originally extended from just above the right knee down to his ankle and was quite edematous as well as erythematous. There was no drainage or fluctuance noted. After 2 days of IV vancomycin therapy, his erythema and edema improved to the point today that it is only erythematous to the devries area as well as extending around the right ankle area. There is slightly more edema noted to the right leg than to the left leg. He will be discharged home today in stable condition. LABORATORY: WBCs started at 13,100 and have normalized today to 4,800. Hemoglobin and hematocrit have been stable around 11 and 31.4. He no longer has a left shift on his differential. INR has remained 2.02 to 2.24. Blood sugars have run between 113 and 192. His electrolytes are within normal limits. Today, his creatinine has stabilized to 1.36. Calcium is slightly low at 8.1. Blood cultures show no growth after 5 days. RADIOLOGY: As per history of present illness. DISCHARGE PLAN: The patient will be discharged in stable condition. He is to resume his previous diet, previous activity and previous medications. I have also added Levaquin for 10 additional days. He is also to elevate his right leg above his heart as much as possible. He is to have close followup with his primary care physician, Dr. Chirag Echeverria. He is to return to the hospital or call Dr. Echeverria' office for any problems or complications. DISCHARGE MEDICATIONS: 1. Metoprolol. 2. Spironolactone. 3. Novolin regular insulin. 4. Furosemide. 5. Omeprazole. 6. Warfarin. 7. Pramipexole. 8. Potassium chloride. 9. Simvastatin. 10. Aspirin. 11. Ramipril. 12. NPH insulin. 13. Naproxen. 14. Levaquin. #[id number] [facility]
== END 2019-01-01 12:50 | disposition home or self-care (01) | DRG 690 ==
LOC: ER 15:17 → OBSVTOIN 20:02 → MS 20:02
PROVIDERS: ADMIT Nurse Practitioner; ATTEND Nurse Practitioner Acute Care
DX: N12 Tubulo-interstitial nephritis, not specified as acute or chronic (principal); L03.115 Cellulitis of right lower limb; N17.9 Acute kidney failure, unspecified; R79.1 Abnormal coagulation profile; R19.7 Diarrhea, unspecified; E11.9 Type 2 diabetes mellitus without complications; I11.0 Hypertensive heart disease with heart failure; G89.29 Other chronic pain; M54.9 Dorsalgia, unspecified; K21.9 Gastro-esophageal reflux disease without esophagitis; I25.10 Atherosclerotic heart disease of native coronary artery without angina pectoris; E66.9 Obesity, unspecified; I50.9 Heart failure, unspecified; Z95.1 Presence of aortocoronary bypass graft; Z95.2 Presence of prosthetic heart valve; Z79.01 Long term (current) use of anticoagulants; Z79.4 Long term (current) use of insulin; Z79.899 Other long term (current) drug therapy; Z98.84 Bariatric surgery status; Z68.33 Body mass index [BMI] 33.0-33.9, adult

== ENCOUNTER → 2019-03-29 | Outpatient (CLI) | payer MEDICARE ==
--- NOTE | 2019-03-29 14:55 | CT ---
EXAM DESCRIPTION: Lumbar Spine: Computed Tomography. CLINICAL HISTORY: 69 years Male RADICULOPATHY LUMBAR COMPARISON: CT scan of the lumbar spine 10 March 2016. TECHNIQUE: Spiral, axial 2.5 x 2.5 mm scans through the lumbarspine without contrast. Coronal and sagittal 2.0 Reconstructions. Total Exam DLP: 651.12 mGy-cm. This exam was performed according to our departmental dose-optimization program which includes automated exposure control, adjustment of the mA and/or kV according to patient size and/or use of iterative reconstruction technique; to reduce radiation dose to as low as reasonably achievable (ALARA). FINDINGS: The L1-2 disc space is well visualized on axial series 2, image 31. L5-S1: Posterior disc space loss. Posterior midline disc bulge 4.5 mm impressing on the thecal sac with AP canal diameter 10 mm. Minimal facet arthrosis and bilateral ligament thickening. Bilateral moderate foraminal narrowing. Sclerosis of the superior S1 endplate. Bilateral narrowing of the subarticular recesses. L4-L5: Moderate disc space loss with gas involving the mid and right lateral aspect of the disc space with more narrowing compared to the left. 4 mm grade 1 anterolisthesis. Also endplate sclerosis and erosions along with Schmorl's nodes and marginal spur formation. Posterior broad-based disc osteophyte encroachment on the canal. Also bilateral hypertrophic facet arthrosis and ligament thickening more left than right. AP canal diameter 5 mm. Bilateral subarticular recess stenoses. Bilateral foraminal narrowing with possible stenosis on the right. Spondylosis and anterolisthesis has increased since the prior study. L3-L4: Diffuse marked disc space loss and gas formation in the disc space predominantly anterior midline into the right. 2 mm grade 1 anterolisthesis. Schmorl's nodes and endplate erosions posterior and also right and left margins. Disc osteophyte complex encroachment on the right foramen with with bony stenosis likely. Moderate bony narrowing left foramen. Bilateral hypertrophic facet arthrosis and ligament thickening. Bilateral subarticular recess narrowing. AP canal diameter approximately 9 mm. Spondylosis has progressed since the prior study. L2-L3: Disc space maintained with tiny posterior disc bulge. Minimal facet joint effusion and posterior ligament thickening, with posterior broad-based disc bulge. AP canal diameter approximately 12 mm. Moderate bony foraminal narrowing bilaterally. L1-L2: Minimal disc space loss. No significant disc bulge. Mild bony canal narrowing. Bilateral bony foramina are patent. T12-L1: Minimal posterior disc space loss and small disc remnant bulging into the canal. Mild bilateral facet arthrosis with no ligament thickening. Bilateral bony foramina are not stenotic. Left convex L3-S1 curvature with no significant scoliosis above L3. No compression type vertebral body fractures at any level.. IMPRESSION: 1. Spondylosis and alignment abnormalities have progressed at L3-4 and L4-5 since the prior study along with disc space loss and narrowing of the foramina and canal. 2. Severe central L4-L5 canal stenosis which is multifactorial and is progressed since the prior study. Bilateral subarticular recess stenosis has also progressed. Possible stenosis right foramen is also progressed. 3. Slight increasing grade 1 anterolisthesis at L3-4 since the prior study. Bony stenosis more likely on the right compared to the prior study. Central canal stenosis is mild, progressed from the prior study. 4. No compression type vertebral body fractures or posterior element fractures at any level. Electronically signed by: Neo Funes MD 03/29/2019 2:53 PM [facility]
== END ==
LOC: CT 09:49
PROVIDERS: ATTEND Family Medicine
DX: M47.26 Other spondylosis with radiculopathy, lumbar region (principal); M43.16 Spondylolisthesis, lumbar region; M48.061 Spinal stenosis, lumbar region without neurogenic claudication

== ENCOUNTER → 2019-06-30 | Outpatient (CLI) | payer MEDICARE | LOC: GMAL 10:45 | PROVIDERS: ATTEND Family Medicine | DX: D51.3 Other dietary vitamin B12 deficiency anemia (principal); E55.9 Vitamin D deficiency, unspecified; E11.9 Type 2 diabetes mellitus without complications; I10 Essential (primary) hypertension; E78.49 Other hyperlipidemia; I48.20 Chronic atrial fibrillation, unspecified; Z12.5 Encounter for screening for malignant neoplasm of prostate | CPT/HCPCS: 82306; 82607; G0103 ==

== ENCOUNTER 2019-09-17 18:11 | Emergency (ER) | payer MEDICARE ==
[2019-09-17] MEDS ORDERED: SODIUM CHLORIDE 0.9% (FLUSH) 10 ML SYG IV PRN (18:27)
[2019-09-17] MEDS ORDERED: SODIUM CHLORIDE 0.9% 1000ML 1,000 ML IVS ONE (18:27)
--- NOTE | 2019-09-17 19:09 | RAD ---
EXAM DESCRIPTION: Chest,1 View CLINICAL HISTORY:69 years Male, fever and cough Comparison: December 26, 2018 FINDINGS: No focal lung consolidation. No pleural effusion. No pneumothorax. Cardiac and mediastinal silhouette is unremarkable. Sternotomy wires. No acute osseous abnormality. Soft tissues are unremarkable. IMPRESSION: No acute findings. No focal lung consolidation. Electronically signed by: Dank Schumacher MD 09/17/2019 7:08 PM CDT
[2019-09-17] MEDS ORDERED: ASPIRIN (CHEWABLE) 81 MG TAB ONE (19:13)
[2019-09-17] MEDS ORDERED: NITROGLYCERIN 2% 1 GM UD TOP ONE ×2 (19:13→19:25)
[2019-09-17] MEDS ORDERED: ASPIRIN (CHEWABLE) 81 MG TAB PO ONE (19:25)
--- NOTE | 2019-09-17 19:35 | ED.PDOC ---
History of Present Illness - General Chief Complaint: General Stated Complaint: General unwell feeling, runny nose, SOB, cough Time Seen by Provider: 09/17/19 18:26 Source: patient, RN notes reviewed, Vital Signs reviewed, family - Exam Limitations: no limitations - History of Present Illness Initial Comments: Patient is a 69-year-old white male who presents with complaints of generalized malaise and fatigue, mild cough, nausea and diarrhea, and feeling unwell. This is been ongoing for the last few days. Patient denies any headache, dizziness, blurry vision, chest pain, shortness of breath. His symptoms are worsening. Timing/Duration: getting worse, other - 3 to 4 days. Severity: moderate Improving Factors: nothing Worsening Factors: nothing Associated Symptoms: cough, loss of appetite, malaise, nausea/vomiting - Nausea only with associated diarrhea, weakness Allergies/Adverse Reactions: Allergies Adhesive Tape Adverse Reaction (Mild, Uncoded 09/17/19 19:26) Rash Pt states is allergic to Adhesive Tape Home Medications: Ambulatory Orders Metoprolol Tartrate 50 mg PO BID 08/29/14 Spironolactone [Aldactone] 50 mg PO DAILY@1200 05/23/15 Insulin Regular (Human) [Novolin R] 100 unit SUBCU .SLIDING SCALE 10/30/15 Furosemide 120 mg PO 0800 11/25/15 Omeprazole Magnesium [Prilosec Otc] 20 mg PO NOON 08/14/16 Potassium Chloride [Potassium Chloride ER] 10 meq PO DAILY@0700 04/25/17 Pramipexole Dihydrochloride [Pramipexole Dihydrochlori] 0.125 mg PO BEDTIME 04/25/17 Warfarin Sodium [Coumadin] 5 mg PO MOWEFR 04/25/17 Aspirin [Aspirin Adult Low Dose] 81 mg PO NOON 12/26/18 Insulin NPH (Human) (Isophane) [Novolin N] 16 unit SC DAILY 12/26/18 Potassium Chloride [Potassium Chloride ER] 10 meq PO DAILY@1200 12/26/18 Ramipril 2.5 mg PO .9:00 & 1200 12/26/18 Simvastatin 20 mg PO BEDTIME 12/26/18 Warfarin Sodium 9 mg PO SALDAÑA 12/26/18 Warfarin Sodium 9 mg PO TUTHSA 12/26/18 Review of Systems - Review of Systems Constitutional: States: see HPI, malaise, weakness EENTM: States: no symptoms reported. Denies: eye pain, blurred vision, double vision Respiratory: States: see HPI, cough. Denies: short of breath, stridor, wheezing Cardiology: States: no symptoms reported, see HPI. Denies: chest pain, palpitations, syncope Gastrointestinal/Abdominal: States: see HPI, diarrhea, nausea. Denies: abdominal pain, vomiting Genitourinary: States: no symptoms reported. Denies: discharge, dysuria Musculoskeletal: States: no symptoms reported. Denies: back pain, joint pain, neck pain Skin: States: no symptoms reported. Denies: change in color, rash Neurological: States: see HPI, weakness. Denies: headache, numbness, paresthesia Endocrine: States: no symptoms reported Hematologic/Lymphatic: States: no symptoms reported All other Systems: Reviewed and Negative Past Medical History (General) - Patient Medical History Hx Seizures: No Hx Stroke: No Hx Asthma: No Hx of COPD: No Hx Cardiac Disorders: Yes Hx Congestive Heart Failure: No Hx Pacemaker: No Hx Hypertension: Yes Hx Diabetes: Yes Hx Gastroesophageal Reflux: Yes Hx Cancer: Yes - Skin Hx MRSA: No Surgical History: cholecystectomy, coronary bypass surgery, gastric bypass, tonsillectomy - Vaccination History Hx Tetanus, Diphtheria Vaccination: Yes Hx Influenza Vaccination: Yes Hx Pneumococcal Vaccination: Yes - Social History Hx Tobacco Use: No Hx Alcohol Use: No Hx Substance Use: No Hx Substance Use Treatment: No Hx Depression: No Hx Physical Abuse: No Hx Emotional Abuse: No - Female History Patient is a Female of Child Bearing Age (10 -59 yrs old): No Patient : No Family Medical History - Family History Mother Family History: No Known Living Status: Age at (years of age): 69 Cause of : Heart Attack Hx Family Hypertension: Yes - several family members Hx Family Diabetes: Yes Father Age (years): 52 Living Status: Age at (years of age): 51 Cause of : emphysema Brother Living Status: Age at (years of age): 53 Cause of : Diabetes Hx Family Diabetes: Yes Physical Exam - Physical Exam General Appearance: Alert, Comfortable, Obese, Well Developed, Well Hydrated, Well Nourished Eye Exam: bilateral normal Ears, Nose, Throat: hearing grossly normal, normal ENT inspection, normal pharynx Neck: non-tender, full range of motion, supple, normal inspection Respiratory: chest non-tender, lungs clear, normal breath sounds, no respiratory distress, no accessory muscle use Cardiovascular/Chest: normal peripheral pulses, regular rate, rhythm, no edema, no gallop, no JVD, no murmur Peripheral Pulses: radial,right: 2+, radial,left: 2+ Gastrointestinal/Abdominal: normal bowel sounds, non tender, soft, no organomegaly, no pulsatile mass Back Exam: normal inspection, no CVA tenderness, no vertebral tenderness Extremity: normal range of motion, non-tender 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 09/17/19 20:13 Patient with an elevated troponin. Has now spiked a fever here to 101 degrees and therefore, with the elevated troponin I will transfer the patient to [place] where his rn bsn practices. I have discussed this with the patient and his and they voiced understanding and agreement at this period of time. 09/17/19 20:39 Patient's strep exam came back positive. Will treat with Bicillin LA and an initial dose of amoxicillin 1 g p.o. Arslan Ceja M.D. #[id number] - Results/Orders Results/Orders: 09/17/19 18:27 Sodium Chloride 0.9% (Flush) [Saline Flush Syringe] 10 ml IV PRN PRN EKG Stat Pulse Ox Stat 09/17/19 18:35 BLOOD CULTURE Stat 09/17/19 19:55 SARS-COV2 RT-PCR HIGH RISK Stat INFLUENZA A & B BY PCR Stat GROUP A STREP SCREEN, RAPID Stat 09/17/19 20:11 URINALYSIS Stat 09/17/19 20:30 LACTIC ACID Q2H Laboratory Results - last 24 hr 09/17/19 09/17/19 09/17/19 18:35 18:35 18:35 WBC 14.1 H RBC 3.61 L Hgb 11.0 L Hct 31.8 L MCV 87.9 MCH 30.4 MCHC 34.6 RDW 13.1 Plt Count 301 MPV 7.9 Absolute Neuts (auto) 12.40 H Absolute Lymphs (auto) 0.70 L Absolute Monos (auto) 0.90 H Absolute Eos (auto) 0.00 Absolute Basos (auto) 0.10 Neutrophils % 87.7 H Lymphocytes % 4.9 L Monocytes % 6.7 Eosinophils % 0.1 L Basophils % 0.6 PT 71.7 H* INR 7.31 H* PTT (SP) 76.0 H* Sodium 128 L Potassium 4.1 Chloride 97 L Carbon Dioxide 22 Anion Gap 13.1 BUN 26 H Creatinine 1.85 H BUN/Creatinine Ratio 14.1 Random Glucose 231 H Serum Osmolality 269.2 L Lactic Acid Calcium 8.7 Total Bilirubin 0.7 AST 63 H ALT 35 Alkaline Phosphatase 70 Creatine Kinase 96 CK-MB (CK-2) 1.7 CK-MB (CK-2) % Not Reportable Troponin I 0.10 H* Serum Total Protein 8.0 Albumin 3.2 Globulin 4.8 H Albumin/Globulin Ratio 0.7 L 09/17/19 18:35 WBC RBC Hgb Hct MCV MCH MCHC RDW Plt Count MPV Absolute Neuts (auto) Absolute Lymphs (auto) Absolute Monos (auto) Absolute Eos (auto) Absolute Basos (auto) Neutrophils % Lymphocytes % Monocytes % Eosinophils % Basophils % PT INR PTT (SP) Sodium Potassium Chloride Carbon Dioxide Anion Gap BUN Creatinine BUN/Creatinine Ratio Random Glucose Serum Osmolality Lactic Acid 1.5 Calcium Total Bilirubin AST ALT Alkaline Phosphatase Creatine Kinase CK-MB (CK-2) CK-MB (CK-2) % Troponin I Serum Total Protein Albumin Globulin Albumin/Globulin Ratio EKG performed 17 Sep 2019 at 1828 hrs.: Sinus rhythm with marked sinus arrhythmia at 82 bpm, nonspecific ST changes, abnormal EKG. Comparison EKG is unavailable for review at this time. EXAM DESCRIPTION: Chest,1 View CLINICAL HISTORY:69 years Male, fever and cough Comparison: December 26, 2018 FINDINGS: No focal lung consolidation. No pleural effusion. No pneumothorax. Cardiac and mediastinal silhouette is unremarkable. Sternotomy wires. No acute osseous abnormality. Soft tissues are unremarkable. IMPRESSION: No acute findings. No focal lung consolidation. Electronically signed by: Dank Schumacher MD 09/17/2019 7:08 PM Group A strep: Positive Influenza A: Negative Influenza B: Negative Departure - Departure Clinical Impression: Elevated troponin, Strep pharyngitis, Renal insufficiency, mild Fever Qualifiers: Fever type: unspecified Qualified Code(s): R50.9 - Fever, unspecified Time of Disposition: 20:41 Disposition: Discharge to Home or Self Care Condition: Fair Departure Forms: ED Discharge - Pt. Copy, Patient Portal Self Enrollment Referrals: Chirag Echeverria III, MD [Primary Care Provider] - 1-2 Weeks Home Medications: Ambulatory Orders Metoprolol Tartrate 50 mg PO BID 08/29/14 Spironolactone [Aldactone] 50 mg PO DAILY@1200 05/23/15 Insulin Regular (Human) [Novolin R] 100 unit SUBCU .SLIDING SCALE 10/30/15 Furosemide 120 mg PO 0800 11/25/15 Omeprazole Magnesium [Prilosec Otc] 20 mg PO NOON 08/14/16 Potassium Chloride [Potassium Chloride ER] 10 meq PO DAILY@0700 04/25/17 Pramipexole Dihydrochloride [Pramipexole Dihydrochlori] 0.125 mg PO BEDTIME 04/25/17 Warfarin Sodium [Coumadin] 5 mg PO MOWEFR 04/25/17 Aspirin [Aspirin Adult Low Dose] 81 mg PO NOON 12/26/18 Insulin NPH (Human) (Isophane) [Novolin N] 16 unit SC DAILY 12/26/18 Potassium Chloride [Potassium Chloride ER] 10 meq PO DAILY@1200 12/26/18 Ramipril 2.5 mg PO .9:00 & 1200 12/26/18 Simvastatin 20 mg PO BEDTIME 12/26/18 Warfarin Sodium 9 mg PO SALDAÑA 12/26/18 Warfarin Sodium 9 mg PO TUTHSA 12/26/18 Transfer to Outside Facility - Transfer Information Decision to Transfer Date: 09/17/19 Decision to Transfer Time: 20:00 Reason for Transfer: specialized care not available Accepting Provider:: Dr. Mena Accepting Facility: [facility]
[2019-09-17] MEDS ORDERED: ACETAMINOPHEN 500 MG TAB PO ONE (19:40)
[2019-09-17 20:08] VITALS: O2SAT 96
[2019-09-17 20:27] VITALS: BP 140/100; TEMP 100.9
[2019-09-17] MEDS ORDERED: AMOXICILLIN 500 MG CAP PO ONE (20:34)
[2019-09-17] MEDS ORDERED: PENICILLIN BENZATHINE 1.2 MU 1.2 MU/2 ML SYG IM ONE (20:35)
== END 2019-09-17 20:52 | disposition home or self-care (01) ==
LOC: ER 18:11
DX: J02.0 Streptococcal pharyngitis (principal); R50.9 Fever, unspecified; R79.89 Other specified abnormal findings of blood chemistry; I10 Essential (primary) hypertension; E11.9 Type 2 diabetes mellitus without complications; Z79.82 Long term (current) use of aspirin; Z79.4 Long term (current) use of insulin; Z79.899 Other long term (current) drug therapy; R53.1 Weakness; R19.7 Diarrhea, unspecified
CPT/HCPCS: 36415; 71045; 80053; 81001; 82550; 82553; 83605; 84484; 85025; 85610; 85730; 87040; 87077; 87186; 87205; 87502; 87635; 87880; 93005; 94760; J0561; J7030

== ENCOUNTER → 2019-11-03 | Outpatient (CLI) | payer MEDICARE | LOC: LAB.O 09:35 | PROVIDERS: ATTEND Internal Medicine Infectious Disease | DX: Z95.2 Presence of prosthetic heart valve (principal); R78.81 Bacteremia ==

== ENCOUNTER → 2020-03-18 | Outpatient (CLI) | payer MEDICARE | LOC: LAB.NP 11:16 | PROVIDERS: ATTEND Family Medicine | DX: D50.0 Iron deficiency anemia secondary to blood loss (chronic) (principal); I48.20 Chronic atrial fibrillation, unspecified ==

== ENCOUNTER → 2020-04-16 | Outpatient (CLI) | payer MEDICARE | LOC: GMAL 10:35 | PROVIDERS: ATTEND Family Medicine | DX: N18.9 Chronic kidney disease, unspecified (principal); E11.9 Type 2 diabetes mellitus without complications; Z79.899 Other long term (current) drug therapy; Z79.01 Long term (current) use of anticoagulants ==

== ENCOUNTER → 2020-04-25 | Outpatient (CLI) | payer MEDICARE ==
--- NOTE | 2020-04-26 08:15 | US ---
EXAM DESCRIPTION: Liver CLINICAL HISTORY: 70 years Male, ABNORMAL LIVER FUNCTION TEST COMPARISON: None. FINDINGS: Right upper quadrant sonography demonstrates an upper normal liver at 15.1 cm in length with mild increased echogenicity suggesting fatty infiltration. No cystic or solid mass is noted and hepatopetal flow evident. No abdominal ascites noted in the right upper quadrant. Gallbladder surgically removed with common duct normal at 5.5 mm. No intrahepatic ductal dilation seen. Portions of the proximal aorta and retroperitoneum visualized and appear normal with incomplete visualization. Right kidney 10.4 cm in length with normal contour. No cyst or mass or hydronephrosis IMPRESSION: Prior cholecystectomy with otherwise essentially normal right upper quadrant sonogram. Mildly echogenic liver suggests fatty infiltration. Electronically signed by: Raffaele Rico MD 04/26/2020 8:13 AM [facility]
== END ==
LOC: US 08:14
PROVIDERS: ATTEND Family Medicine
DX: R94.5 Abnormal results of liver function studies (principal); K76.9 Liver disease, unspecified; Z90.49 Acquired absence of other specified parts of digestive tract

== ENCOUNTER → 2020-04-30 | Outpatient (CLI) | payer MEDICARE | LOC: GMAL 11:24 | PROVIDERS: ATTEND Family Medicine | DX: D50.0 Iron deficiency anemia secondary to blood loss (chronic) (principal); I10 Essential (primary) hypertension; E11.9 Type 2 diabetes mellitus without complications; E78.2 Mixed hyperlipidemia; Z79.01 Long term (current) use of anticoagulants ==

== ENCOUNTER 2020-05-13 19:16 | Inpatient (IN) | payer MEDICARE ==
[2020-05-13] MEDS ORDERED: HYDROmorphone HCL INJ 2 MG/ML VIAL IV ONE (19:35)
[2020-05-13] MEDS ORDERED: predniSONE 20 MG TAB PO ONE (19:35)
--- NOTE | 2020-05-13 20:42 | CT ---
EXAM: CT Lumbar Spine Without Intravenous Contrast CLINICAL HISTORY: The patient is 70 years old and is Male; acute pain at 9 mo old op site low back TECHNIQUE: Axial computed tomography images of the lumbar spine without intravenous contrast. Sagittal and coronal reformatted images were created and reviewed. This CT exam was performed using one or more of the following dose reduction techniques: automated exposure control, adjustment of the mA and/or kV according to patient size, and/or use of iterative reconstruction technique. COMPARISON: CT lumbar spine March 29, 2019. FINDINGS: Vertebrae: L4 laminectomy with posterior fusion hardware at L4 and L5. Faint lucency associated with the left L4 pedicle screw. Old L1 and L4 or Schmorl's nodes. L4-5 degenerative facet arthropathy. No acute fracture. Other bones/joints: Left iliac donor site. Discs/spinal canal/neural foramina: L3-4 degenerative disc disease. Soft tissues: Unremarkable. IMPRESSION: 1. L3-4 degenerative disc disease. 2. L4 laminectomy with posterior fusion hardware at L4 and L5. Faint lucency associated with the left L4 pedicle screw, possibly secondary to loosening. Clinical correlation suggested. 3. Degenerative changes as above. Electronically signed by: Deanna Moreno MD 05/13/2020 8:40 PM [facility]
--- NOTE | 2020-05-13 20:55 | ED.PDOC ---
History of Present Illness - General Chief Complaint: Back Pain or Injury Stated Complaint: low back pain since noon Time Seen by Provider: 05/13/20 19:35 Source: patient Exam Limitations: no limitations - History of Present Illness Initial Comments: The patient is a 70-year-old male presented emergency room secondary to severe low back pain. The patient apparently stepped off of a curb wrong earlier today and has had back pain since that time. The patient underwent a lumbar spine surgery back in July and had apparently been doing well. The patient was able to ambulate after this incident and went home and took a nap on the couch. When he woke up he could not get himself up and moved secondary to uncontrolled pain. The patient is obviously having paraspinal muscle spasms adjacent to the lumbar spine. No obvious step-off. Surgical site is noted. No real symptoms to the lower extremities themselves however movement of the lower extremities does cause increased spasms in the low back bilaterally. No incontinence. No evidence of true weakness. Again the patient did not actually fall to the ground. The patient is in exquisite pain rated 10 out of 10. Timing/Duration: 4-6 hours Severity: severe Improving Factors: immobilization Worsening Factors: movement Associated Symptoms: denies symptoms Allergies/Adverse Reactions: Allergies Adhesive Tape Adverse Reaction (Mild, Uncoded 09/17/19 19:26) Rash Pt states is allergic to Adhesive Tape Home Medications: Ambulatory Orders Metoprolol Tartrate 50 mg PO BID 08/29/14 Spironolactone [Aldactone] 50 mg PO DAILY@1200 05/23/15 Insulin Regular (Human) [Novolin R] 100 unit SUBCU .SLIDING SCALE 10/30/15 Furosemide 120 mg PO 0800 11/25/15 Omeprazole Magnesium [Prilosec Otc] 20 mg PO NOON 08/14/16 Potassium Chloride [Potassium Chloride ER] 10 meq PO DAILY@0700 04/25/17 Pramipexole Dihydrochloride [Pramipexole Dihydrochlori] 0.125 mg PO BEDTIME 04/25/17 Warfarin Sodium [Coumadin] 5 mg PO MOWEFR 04/25/17 Aspirin [Aspirin Adult Low Dose] 81 mg PO NOON 12/26/18 Insulin NPH (Human) (Isophane) [Novolin N] 16 unit SC DAILY 12/26/18 Potassium Chloride [Potassium Chloride ER] 10 meq PO DAILY@1200 12/26/18 Ramipril 2.5 mg PO .9:00 & 1200 12/26/18 Simvastatin 20 mg PO BEDTIME 12/26/18 Warfarin Sodium 9 mg PO SALDAÑA 12/26/18 Warfarin Sodium 9 mg PO TUTHSA 12/26/18 Review of Systems - Review of Systems Constitutional: States: no symptoms reported EENTM: States: no symptoms reported Respiratory: States: no symptoms reported Cardiology: States: no symptoms reported Gastrointestinal/Abdominal: States: no symptoms reported Genitourinary: States: no symptoms reported Musculoskeletal: States: back pain Skin: States: no symptoms reported Neurological: States: no symptoms reported Endocrine: States: no symptoms reported All other Systems: No Change from Baseline Past Medical History (General) - Patient Medical History Hx Seizures: No Hx Stroke: No Hx Dementia: No Hx Asthma: No Hx of COPD: No Hx Cardiac Disorders: Yes - [place], valve replacement Hx Congestive Heart Failure: No Hx Pacemaker: No Hx Hypertension: Yes Hx Thyroid Disease: No Hx Diabetes: Yes Hx Gastroesophageal Reflux: Yes Hx Renal Disease: No Hx Cancer: Yes - Skin Hx of HIV: No Hx Hepatitis C: No Hx MRSA: No Surgical History: cholecystectomy - Vaccination History Hx Tetanus, Diphtheria Vaccination: No Hx Influenza Vaccination: Yes Hx Pneumococcal Vaccination: Yes - Social History Hx Tobacco Use: No Hx Alcohol Use: No Hx Substance Use: No Hx Substance Use Treatment: No Hx Depression: No Hx Physical Abuse: No Hx Emotional Abuse: No - Female History Patient : No Family Medical History - Family History Mother Family History: No Known Living Status: Age at (years of age): 69 Cause of : Heart Attack Hx Family Hypertension: Yes - several family members Hx Family Diabetes: Yes Father Age (years): 52 Living Status: Age at (years of age): 51 Cause of : emphysema Brother Living Status: Age at (years of age): 53 Cause of : Diabetes Hx Family Diabetes: Yes Physical Exam - Physical Exam General Appearance: Alert, Obvious distress Eye Exam: bilateral normal Ears, Nose, Throat: hearing grossly normal Neck: non-tender, supple Respiratory: lungs clear, normal breath sounds, no respiratory distress, no accessory muscle use Cardiovascular/Chest: normal peripheral pulses, no edema, other - Regular rate Peripheral Pulses: radial,right: 2+, radial,left: 2+, dorsalis pedis,right: 2+, dorsalis pedis,left: 2+ Gastrointestinal/Abdominal: non tender, soft Rectal Exam: deferred Back Exam: no CVA tenderness, no vertebral tenderness, muscle spasm Extremity: normal range of motion - Passive, no pedal edema, no calf tenderness, normal capillary refill Neurologic: operator catalyst concentration II-XII nml as tested, alert, normal mood/affect, oriented x 3, other - Sensation is symmetrical and slightly decreased in bilateral lower extremities related to his diabetes. Strength is preserved with limited motion testing due to patient's pain. Skin Exam: normal color Comments: Vital Signs (72 hours) 05/13/20 05/13/20 19:23 20:30 Temperature 99.6 F Pulse Rate [ 69 71 monitor] Respiratory 20 20 Rate Blood Pressure 143/67 151/62 [Right Arm] O2 Sat by Pulse 97 97 Oximetry Progress - Progress Progress: 05/13/20 20:58 The patient is a 70-year-old male presenting secondary to severe uncontrolled lower back pain with muscle spasms after having stepped off of a curb wrong earlier in the day. He appears to be neurologically at his baseline. The patient received a dose of Dilaudid for the low back pain and muscle spasm which has helped. He is also receiving a dose of oral prednisone. He is a diabetic so his blood sugars will need to be watched fairly closely. The patient is completely unable to function on his own in his current condition due to the pain. He is therefore going to be admitted for pain control and physical therapy evaluation hopefully in the morning. He may require additional steroid and muscle relaxers in the near future. CT scan of the lumbar spine does not show obvious significant acute pathology. Admit for continued care for uncontrolled pain and inability to perform activities of daily living. aurelio cool [id number] - Results/Orders Results/Orders: Rapid coronavirus test is negative CT scan of the lumbar spine shows no evidence of acute pathology. There is mild lucency adjacent to the L4 pedicle that could possibly represent loosening of the screw. See report for details. Laboratory Results - last 24 hr 05/13/20 05/13/20 05/13/20 20:10 20:10 20:10 WBC 9.6 RBC 3.22 L Hgb 9.9 L Hct 28.3 L MCV 87.8 MCH 30.7 MCHC 35.0 RDW 14.2 Plt Count 192 MPV 8.0 Absolute Neuts (auto) 7.90 H Absolute Lymphs (auto) 0.90 L Absolute Monos (auto) 0.70 Absolute Eos (auto) 0.10 Absolute Basos (auto) 0.00 Neutrophils % 82.0 H Lymphocytes % 9.3 L Monocytes % 7.6 Eosinophils % 0.7 L Basophils % 0.4 PT 39.9 H* INR 4.03 H* PTT (SP) 38.3 H Sodium 133 L Potassium 5.2 H Chloride 100 L Carbon Dioxide 23 Anion Gap 15.2 BUN 23 H Creatinine 1.76 H BUN/Creatinine Ratio 13.1 Random Glucose 169 H Serum Osmolality 274.0 L Calcium 8.3 L Total Bilirubin 0.8 AST 30 ALT 24 Alkaline Phosphatase 89 Serum Total Protein 7.6 Albumin 3.9 Globulin 3.7 H Albumin/Globulin Ratio 1.1 Departure - Departure Clinical Impression: Uncontrolled pain, Inability to perform activities of daily living Disposition: Admit Patient Departure Forms: ED Discharge - Pt. Copy, Patient Portal Self Enrollment Referrals: Chirag Echeverria III, MD [Primary Care Provider] - 1-2 Weeks Home Medications: Ambulatory Orders Metoprolol Tartrate 50 mg PO BID 08/29/14 Spironolactone [Aldactone] 50 mg PO DAILY@1200 05/23/15 Insulin Regular (Human) [Novolin R] 100 unit SUBCU .SLIDING SCALE 10/30/15 Furosemide 120 mg PO 0800 11/25/15 Omeprazole Magnesium [Prilosec Otc] 20 mg PO NOON 08/14/16 Potassium Chloride [Potassium Chloride ER] 10 meq PO DAILY@0700 04/25/17 Pramipexole Dihydrochloride [Pramipexole Dihydrochlori] 0.125 mg PO BEDTIME 04/25/17 Warfarin Sodium [Coumadin] 5 mg PO MOWEFR 04/25/17 Aspirin [Aspirin Adult Low Dose] 81 mg PO NOON 12/26/18 Insulin NPH (Human) (Isophane) [Novolin N] 16 unit SC DAILY 12/26/18 Potassium Chloride [Potassium Chloride ER] 10 meq PO DAILY@1200 12/26/18 Ramipril 2.5 mg PO .9:00 & 1200 12/26/18 Simvastatin 20 mg PO BEDTIME 12/26/18 Warfarin Sodium 9 mg PO SALDAÑA 12/26/18 Warfarin Sodium 9 mg PO TUTHSA 12/26/18 Decision To Admit - Decistion To Admit Decision to Admit Reason: Accidental Injury Decision to Admit Date: 05/13/20 Decision to Admit Time: 21:00
--- NOTE | 2020-05-13 22:00 | HP ---
SUPERVISING PHYSICIAN: Carlos Rios MD CHIEF COMPLAINT: Low back pain. HISTORY OF PRESENT ILLNESS: Mr. Chong is a 70-year-old male patient that presented to the Emergency Room secondary to severe low back pain. The patient has a history of having a fusion of L4-L5 with L3-5 laminectomy and decompression in July of 2019. He endorses that he was stepping off a curb yesterday and apparently stepped wrong and at that point had severe back pain in his lower back. He was able to ambulate home. He went home, took a nap on the couch and when he woke up, he could not move due to uncontrolled pain. He was having some back spasms. No reported incontinence or paresthesias to lower extremities. He has no evidence of a fall, but was rating the pain as unbearable at 10/10. A lumbar CT was completed in the ER and showed no acute changes other than mention of possible L4 pedicle screw possibly showing some evidence of loosening. On exam, the patient had no obvious deformities, no step-offs. His vital signs in the ER showed temperature 99.6, pulse 69, saturation 97% on room air. Labs showed white count 9,600 with a slight left shift. Coagulation studies showed INR 4.03. He is on chronic Coumadin therapy for mechanical aortic valve replacement. Chemistries showed a mildly elevated potassium at 5.2 with creatinine 1.76. Liver functions all within normal limits. He was given pain management in the ER initially with Dilaudid and 40 mg dose of oral prednisone with minimal control of the pain. The ER physician, Dr. Jakob Hendrickson, requested the patient be placed in observation overnight for physical therapy evaluation in the morning and further pain control with the patient unable to perform any activities of daily living. He was placed in observation initially in stable condition. PAST MEDICAL HISTORY: 1. Coronary artery disease. 2. Hyperlipidemia. 3. Hypertension. 4. Osteoarthritis. 5. Type 2 diabetes. 6. B12 deficiency. 7. Autoimmune hemolytic anemia. 8. Obesity. 9. Bicuspid aortic valve replacement in 2007 with mechanical valve. PAST SURGICAL HISTORY: 1. Umbilical hernia repair. 2. Tonsillectomy. 3. Aortic valve replacement. 4. Two-vessel coronary artery bypass graft. 5. Right cataract. 6. Oscar-en-Y gastric bypass. 7. Cholecystectomy. 8. Exploratory laparotomy with reduction of internal hernia and closure of mesenteric defect. 9. L3-L4 laminectomy with decompression and L4-L5 fusion with instrumentation and interbody fusion done by Dr. Oro on 08/03 in [place], [place]. HOME MEDICATIONS: 1. Warfarin 5 mg Rammya-Qpwuwtkoi-Ufbsoh. 2. Warfarin 9 mg on Wpwknc-Ylueaun-Jlncdmsy-Wednesday. 3. Aldactone 50 mg daily. 4. Ranexa 500 mg b.i.d. 5. Ramipril 2.5 mg b.i.d. 6. Pramipexole 0.125 mg at bedtime. 7. Potassium chloride 10 mEq daily at noon. 8. Potassium chloride 10 mEq at 7:00 AM. 9. Prilosec 20 mg daily. 10. Metoprolol 50 mg b.i.d. 11. Isosorbide mononitrate extended release 60 mg b.i.d. 12. Sliding scale insulin. 13. Novolin 16 units daily. 14. Lasix 120 mg at 8 o'clock. 15. Plavix 75 mg. 16. Lipitor 80 mg daily. ALLERGIES: NO KNOWN DRUG ALLERGIES, ALLERGIC TO ADHESIVE TAPE. FAMILY HISTORY: Noncontributory to current admission. SOCIAL HISTORY: The patient has no history of smoking, drinking or illicit drugs. He is and lives in [place]. He is retired. REVIEW OF SYSTEMS: CONSTITUTIONAL: Denies any fevers, chills. No mention of weight loss or weight gain. HEENT: Denies headaches, sore throats, earaches, nasal congestion, vision changes. RESPIRATORY: Denies coughing, wheezing, pleuritic chest pain or shortness of breath. CARDIOVASCULAR: Denies chest pain, palpitations or syncopal episodes. GASTROINTESTINAL: Denies nausea, vomiting, diarrhea, constipation or abdominal pain. GENITOURINARY: Denies dysuria, hematuria, polyuria. MUSCULOSKELETAL: Positive for back pain as noted in history of present illness. SKIN: Denies lesions, rashes, moles or unexplained changes. NEUROLOGIC: Denies syncope, paresthesias, ataxia or other focal motor deficits. No incontinence. No reported lower extremity motor weakness. HEMATOLOGIC: Denies unexplained bleeding, bruising or transfusion reactions. PHYSICAL EXAMINATION: VITAL SIGNS: Temperature 99.6, pulse 69, blood pressure 143/67, respiratory rate 20, saturation 97% on room air. GENERAL: The patient looks to be comfortable on exam on the Medical/Surgical Floor. He is alert. He is not in obvious distress. HEENT: Tympanic membranes clear bilaterally. Oropharynx is pink, moist without any lesions. NECK: Supple, nontender with full range of motion. No jugular venous distention noted. RESPIRATORY: Lung sounds are clear to auscultation bilaterally without any rhonchi, wheezes or rales. CARDIOVASCULAR: Regular rate and rhythm without any appreciable murmurs, gallops, or rubs. There is audible click from aortic valve. ABDOMEN: Soft, nontender. Positive bowel sounds. RECTAL: Deferred. BACK: No CVA or vertebral tenderness. He does have muscle spasms. No obvious deformities to lower back. EXTREMITIES: He has full range of motion that results in pain with both passive and active range of motion of lower extremities. No cyanosis, clubbing or edema. NEUROLOGIC: Cranial nerves II-XII are grossly intact. The patient is alert and oriented times three. Sensation to lower extremities was symmetrical. Strength equal bilaterally to lower extremities but limited due to the patient's pain on exam. SKIN: Warm, pink and dry. LABORATORY: White count 9,600, hemoglobin 9.9, hematocrit 28.3, platelet count 192,000. Slightly left shift on differential. Coagulation studies showed INR 4.03. Chemistries showed sodium 133, potassium 5.2, BUN 23, creatinine 1.76 which is pretty close to his baseline creatinine level around 1.6. Glucose 169. Calcium 8.3. Liver functions all within normal limits. Urinalysis pending. MICROBIOLOGY: Nasal swab was negative for COVID. RADIOLOGY: Lumbar spine CT showed L3-L4 degenerative disc disease with L4 laminectomy with posterior fusion hardware at L4 and L5. Faint lucency associated with left L4 pedicle screw, possibly secondary to loosening, suggested clinical correlation. Please see the full report for details. ASSESSMENT: 1. Intractable low back pain with history of chronic back pain and recent back surgery in July of 2019 with no mention of fall or any neurologic deficits. 2. Normocytic/normochromic anemia, likely chronic. 3. History of aortic valve mechanical valve replacement on chronic Coumadin therapy, showing therapeutic levels on initial admission. 4. Mild electrolyte imbalance in the form of hyponatremia and hyperkalemia with the patient on Lasix and spironolactone. 5. Renal insufficiency likely due to some mild prerenal azotemia due to chronic diuretic usage. 6. Diabetes mellitus, type 2 on insulin. 7. Coronary artery disease. 8. Hyperlipidemia. 9. Hypertension. 10. History of autoimmune hemolytic anemia. PLAN: Mr. Chong is going to be placed in evaluation overnight for further evaluation and pain control. We will utilize morphine as possible and transition to oral medications in efforts to get the patient back home with anticipation of discharging tomorrow. He does have physical therapy evaluation, which we will await those findings. If he does need further assistance and is not safe to go home, certainly I think at this point his best option would be to go to an inpatient rehab as he has already voiced he is not going to any kind of longterm facility. We will continue to monitor and treat as needed and hopefully be able to transition to outpatient management tomorrow. #[id number] [facility]
[2020-05-13] MEDS ORDERED: TEMAZEPAM 15 MG CAP PO PRN (22:20)
[2020-05-13] MEDS ORDERED: ONDANSETRON INJ 4 MG/2 ML VIAL IV PRN (22:20)
[2020-05-13] MEDS ORDERED: SODIUM CHLORIDE 0.9% (FLUSH) 10 ML SYG IV PRN (22:20)
[2020-05-13] MEDS ORDERED: DEXTROSE 50% 25 GM/50 ML SYG IV PRN (22:22)
[2020-05-13] MEDS ORDERED: GLUCAGON INJ 1 MG VIAL SUBCU PRN (22:22)
[2020-05-13] MEDS: MORPHINE SULFATE INJ 10 MG/ML VIAL IV PRN (23:03)
[2020-05-13] MEDS: IV SET AND CAP CHANGE INJ INJ SCH (23:13)
[2020-05-14] MEDS: MORPHINE SULFATE INJ 10 MG/ML VIAL IV PRN ×2 (05:29→09:13)
[2020-05-14] MEDS: INSULIN LISPRO 100 UNITS/ML PEN SUBCU SCH ×4 (07:55→20:55)
[2020-05-14] MEDS ORDERED: HYDROmorphone HCL INJ 2 MG/ML VIAL IV ONE (09:34)
[2020-05-14] MEDS: METOPROLOL TARTRATE 50 MG TAB PO SCH ×2 (10:52→20:01)
[2020-05-14] MEDS: POTASSIUM CHLORIDE 10 MEQ TAB PO SCH ×2 (10:52→11:46)
[2020-05-14] MEDS: RANOLAZINE ER 500 MG TAB PO SCH ×2 (10:52→20:02)
[2020-05-14] MEDS: FUROSEMIDE 40 MG TAB PO SCH (10:52)
[2020-05-14] MEDS: ISOSORBIDE MONONITRATE (IMDUR) 30 MG TAB PO SCH ×2 (10:52→20:03)
[2020-05-14] MEDS: RAMIPRIL 2.5 MG CAP PO SCH (11:45)
[2020-05-14] MEDS: SPIRONOLACTONE 25 MG TAB PO SCH (11:46)
[2020-05-14] MEDS: PANTOPRAZOLE SODIUM TAB 40 MG PO SCH (11:46)
[2020-05-14] MEDS: ACETAMINOPHEN 325 MG TAB PO PRN ×2 (11:59→18:15)
[2020-05-14] MEDS ORDERED: cefTRIAXone SODIUM 1 GM in SODIUM CHL 0.9% 50ML MIN-BAG+ 50 ML IVPB SCH (12:30)
--- NOTE | 2020-05-14 13:10 | RAD ---
EXAM DESCRIPTION: Chest,1 View CLINICAL HISTORY: 70 years Male, fever COMPARISON: September 17, 2019 TECHNIQUE: AP portable chest. FINDINGS: Lungs are clear. No consolidation. Heart normal size. IMPRESSION: Normal. Electronically signed by: Arik Delong MD 05/14/2020 1:08 PM [facility]
[2020-05-14] MEDS: CYCLOBENZAPRINE HCL 10 MG TAB PO PRN ×2 (13:54→20:01)
[2020-05-14] MEDS: HYDROcodone 5MG/APAP 325MG 1 EA TAB PO PRN ×3 (13:54→23:31)
[2020-05-14] MEDS ORDERED: SODIUM CHLORIDE 0.45% 1000ML 1,000 ML IVS ONE (14:10)
--- NOTE | 2020-05-14 17:19 | PN ---
SUPERVISING PHYSICIAN: Jethro Rios M.D. DATE: 05.13.20 SUBJECTIVE: The patient is still having severe back pain. He worked with Physical Therapy but was not able to do a whole lot. The nurses called me later this afternoon around 12 o'clock and he spiked a fever of 102.3. He was not having any distress. Lactic acid was elevated and he ended up having a Strep test that was positive. Otherwise no other source of infection was noted. The pain in his back he says is not any different. I has improved slightly with some pain management. He has had no nausea or vomiting or chest pain. OBJECTIVE: VITAL SIGNS: Temperature 102.3, pulse 96, blood pressure 152/64, respirations 18, satting 95% on room air at rest. GENERAL: The patient is resting comfortably in bed. Does not look to be in any distress. He is alert. CHEST: Lung sounds are clear to auscultation. HEART: Regular rate and rhythm. ABDOMEN: Soft, non-tender. Positive bowel sounds. EXTREMITIES: No clubbing, cyanosis or edema. He is moving all legs ad memo and actually is able to stand at the bedside to utilize a urinal. SKIN: Warm, pink and dry. LABORATORY: White count has gone up to 15,600 but he did get a large dose of steroids last night in the Emergency Room. Hemoglobin 10.2, hematocrit 29.3, platelet count 1989,000. Differential does show a left shift. Coagulation studies showed his INR is at 3.15. Chemistries showed sodium 133, potassium is now normalized at 4.8, creatinine is down to 1.69. Blood sugars remain between 104 and 269. Lactic acid was elevated at 3.0. Urinalysis just showed moderate amount of blood, otherwise no other significant findings, but he did have Group A Strep that was positive. MICROBIOLOGY: Influenza A and B by PCR was negative as well as again his COVID swab was negative. Blood cultures are pending. RADIOLOGY: Chest x-ray per radiology interpretation showed normal chest. No consolidations. Lungs are clear. Heart size was normal. ASSESSMENT: 1. Group A Streptococcal pharyngitis with associated sepsis. 2. Intractable low back pain likely acute on chronic with no obvious neurological deficits. 3. Normocytic/normochromic anemia, likely chronic. 4. History of aortic valve mechanical valve replacement on chronic Coumadin therapy, showing therapeutic levels on initial admission. 5. Mild electrolyte imbalance in the form of hyponatremia and hyperkalemia with the patient on Lasix and spironolactone. 6. Renal insufficiency likely due to some mild prerenal azotemia due to chronic diuretic usage. 7. Diabetes mellitus, type 2 on insulin. 8. Coronary artery disease. 9. Hyperlipidemia. 10. Hypertension. 11. History of autoimmune hemolytic anemia. PLAN: Given he did spike a temperature and tested positive for Strep, I am going to go ahead and start him on Rocephin. I am waiting for a full Physical Therapy evaluation. At this point, the patient is going to be seen in referral to inpatient rehab with [facility] at his request as he does not want to go to a half-way and at this point I am not sure that he is able to go home given his rib pain. Will continue with coverage for antibiotics and encourage good bronchial hygiene. If his back pain does persist, then maybe consideration for additional imaging. At this point there is no obvious clinical signs of discitis other than the fever and severe back pain, but nothing was seen on the initial CT. His white count did increase but he did get a large dose of Prednisone last night in the Emergency Room. Again, will continue to monitor and treat as needed. Hopefully be able to transition him to outpatient management through inpatient rehab. Will treat the Group A pharyngitis infection and monitor closely until we can discharge. #[id number] [facility]
[2020-05-14] MEDS ORDERED: ATORVASTATIN 20 MG TAB PO ONE (19:36)
[2020-05-14] MEDS ORDERED: PRAMIPEXOLE 0.25 MG TAB ONE (19:36)
[2020-05-14] MEDS: ATORVASTATIN 20 MG TAB PO SCH (20:01)
[2020-05-14] MEDS: PRAMIPEXOLE 0.25 MG TAB PO SCH (20:02)
[2020-05-14] MEDS ORDERED: CLOPIDOGREL 75 MG TAB ONE (22:31)
[2020-05-14] MEDS ORDERED: WARFARIN SODIUM 9 MG PO SCH (23:00)
[2020-05-15] MEDS ORDERED: VANCOMYCIN HCL INJ 2,000 MG in SODIUM CHLORIDE 0.9% 500ML 500 ML IVPB ONE (01:47)
[2020-05-15] MEDS ORDERED: SODIUM CHL 0.9% 50ML MIN-BAG+ 50 ML IVPB ONE ×2 (01:52→07:47)
[2020-05-15] MEDS ORDERED: VANCOMYCIN HCL INJ 1,000 MG VIAL IVPB ONE (01:52)
[2020-05-15] MEDS ORDERED: MEROPENEM 1 GM VIAL IVPB ONE ×2 (01:52→07:46)
[2020-05-15] MEDS ORDERED: SODIUM CHLORIDE 0.9% 500ML 500 ML ONE (01:52)
[2020-05-15] MEDS ORDERED: CLINDAMYCIN IV 900MG 50 ML IVPB ONE ×2 (01:53→07:47)
[2020-05-15] MEDS ORDERED: VANCOMYCIN PER PHARMACY INJ SCH (02:00)
[2020-05-15] MEDS: CLINDAMYCIN IV 900MG 900 MG in PREMIX BAG 1 BAG IVPB SCH ×3 (02:16→16:12)
[2020-05-15] MEDS: MEROPENEM 1 GM in SODIUM CHL 0.9% 50ML MIN-BAG+ 50 ML IVPB SCH ×2 (02:16→08:39)
[2020-05-15] MEDS: MORPHINE SULFATE INJ 10 MG/ML VIAL IV PRN ×2 (03:13→05:22)
[2020-05-15] MEDS: CYCLOBENZAPRINE HCL 10 MG TAB PO PRN ×2 (06:10→20:56)
[2020-05-15] MEDS: POTASSIUM CHLORIDE 10 MEQ TAB PO SCH ×2 (06:10→10:57)
[2020-05-15] MEDS: CLOPIDOGREL 75 MG TAB PO SCH (06:10)
[2020-05-15] MEDS: HYDROcodone 5MG/APAP 325MG 1 EA TAB PO PRN ×3 (06:10→20:56)
[2020-05-15] MEDS: INSULIN LISPRO 100 UNITS/ML PEN SUBCU SCH ×4 (07:34→20:58)
[2020-05-15] MEDS: FUROSEMIDE 40 MG TAB PO SCH (07:57)
[2020-05-15] MEDS: METOPROLOL TARTRATE 50 MG TAB PO SCH ×2 (07:57→20:57)
[2020-05-15] MEDS: RANOLAZINE ER 500 MG TAB PO SCH ×2 (07:57→21:22)
[2020-05-15] MEDS: RAMIPRIL 2.5 MG CAP PO SCH ×2 (07:57→10:57)
[2020-05-15] MEDS: ISOSORBIDE MONONITRATE (IMDUR) 30 MG TAB PO SCH ×2 (07:58→20:58)
[2020-05-15] MEDS: SPIRONOLACTONE 25 MG TAB PO SCH (10:57)
[2020-05-15] MEDS: PANTOPRAZOLE SODIUM TAB 40 MG PO SCH (10:57)
--- NOTE | 2020-05-15 11:40 | PN ---
SUPERVISING PHYSICIAN: Carlos Rios MD DATE: 05/15/20 SUBJECTIVE: The patient is lying in bed. He is asleep. We discussed his plan of care and that I would be speaking to Dr. Boyer and Dr. Buck about his condition. He is to be evaluated by [facility] for outpatient rehab. OBJECTIVE: VITAL SIGNS: Temperature 98.6, heart rate 88, blood pressure 148/66, respiratory rate 21, O2 saturation 94% on room air. RESPIRATORY: Essentially clear to auscultation bilaterally, but he is somewhat diminished throughout. CARDIAC: Regular rate and rhythm. NEUROLOGIC: Awake, alert and oriented times three. LABORATORY: WBCs 13,600, hemoglobin 10.1, hematocrit 29.6. He has a left shift on differential. PT 29.6, INR 2.99. Sodium 131, potassium 5.1, chloride 98, carbon dioxide 20, BUN 40, creatinine 2.41. Calcium 7.7, total bilirubin 1.4, direct 0.1, indirect 1.1. MICROBIOLOGY: Preliminary blood cultures show gram positive cocci in clusters. We are still awaiting sensitivities. All other labs and films have been reviewed via the EMR. ASSESSMENT: 1. Group A Streptococcal pharyngitis with associated sepsis. 2. Intractable low back pain likely acute on chronic with no obvious neurological deficits. 3. Normocytic/normochromic anemia, likely chronic. 4. History of aortic valve mechanical valve replacement on chronic Coumadin therapy, showing therapeutic levels on initial admission. 5. Mild electrolyte imbalance in the form of hyponatremia and hyperkalemia with the patient on Lasix and spironolactone. 6. Renal insufficiency likely due to some mild prerenal azotemia due to chronic diuretic usage. 7. Diabetes mellitus, type 2 on insulin. 8. Coronary artery disease. 9. Hyperlipidemia. 10. Hypertension. 11. History of autoimmune hemolytic anemia. PLAN: We will continue present supportive care. I was unable to order an MRI to rule out discitis, but based on the preliminary blood culture reports, I will call Dr. Boyer and see her recommendations on antibiotics and length of treatment. I will also most likely call Dr. Buck for any recommendations to assist with his kidney function. We will go ahead and let him be evaluated by [facility] although he may have some other issues going on, so he will not be discharged for the day or two awaiting recommendations from both Dr. Buck and Dr. Boyer. I have ordered an echocardiogram to make sure there is no vegetation on his valve. I will order PT/INR in the morning. He will continue on his present warfarin schedule. We will follow and treat as needed. #[id number] [facility]
[2020-05-15] MEDS ORDERED: MEROPENEM 1 GM in SODIUM CHL 0.9% 50ML MIN-BAG+ 50 ML IVPB SCH ×2 (12:00→21:00)
[2020-05-15] MEDS: WARFARIN SODIUM 5 MG TAB PO SCH (16:12)
[2020-05-15] MEDS: PRAMIPEXOLE 0.25 MG TAB PO SCH (20:57)
[2020-05-15] MEDS: ATORVASTATIN 20 MG TAB PO SCH (20:57)
[2020-05-16] MEDS: HYDROcodone 5MG/APAP 325MG 1 EA TAB PO PRN ×3 (00:38→20:36)
[2020-05-16] MEDS: VANCOMYCIN HCL INJ 1,250 MG in SODIUM CHLORIDE 0.9% 250ML 250 ML IVPB SCH (03:52)
[2020-05-16] MEDS: CLOPIDOGREL 75 MG TAB PO SCH (06:13)
[2020-05-16] MEDS: POTASSIUM CHLORIDE 10 MEQ TAB PO SCH ×2 (06:13→12:07)
--- NOTE | 2020-05-16 07:47 | RAD ---
EXAM DESCRIPTION: Chest,1 View: CR/DR/XR. CLINICAL HISTORY: 70 years Male PICC placement. Good blood return according to nurse catheter specialist. COMPARISON: Single portable chest x-ray May 14. TECHNIQUE: ONE VIEW PORTABLE. AP 730 hours, upright position. FINDINGS: A PICC line is been introduced via left upper extremity. The tip of the PICC line is just inferior to the confluence of the left innominate vein and right subclavian vein in the superior aspect of the superior vena cava. No mediastinal widening. No pneumothorax. Lung volumes are decreased with bibasilar densities. Stable since the prior chest x-ray. Mild cardiomegaly but pulmonary vascularity is unremarkable.. IMPRESSION: Left upper extremity PICC line/central VAD in customary position with no complication seen. A verbal report was given in person to the nurse catheter specialist at the time of review. Electronically signed by: Neo Funes MD 05/16/2020 7:45 AM [employer]
[2020-05-16] MEDS: INSULIN LISPRO 100 UNITS/ML PEN SUBCU SCH ×4 (08:00→20:43)
[2020-05-16] MEDS: RANOLAZINE ER 500 MG TAB PO SCH ×2 (08:28→20:33)
[2020-05-16] MEDS: CYCLOBENZAPRINE HCL 10 MG TAB PO PRN (08:28)
[2020-05-16] MEDS: FUROSEMIDE 40 MG TAB PO SCH (08:28)
[2020-05-16] MEDS: ISOSORBIDE MONONITRATE (IMDUR) 30 MG TAB PO SCH ×2 (08:29→20:33)
[2020-05-16] MEDS: METOPROLOL TARTRATE 50 MG TAB PO SCH ×2 (08:29→20:33)
[2020-05-16] MEDS: RAMIPRIL 2.5 MG CAP PO SCH ×2 (08:30→12:09)
[2020-05-16] MEDS: PANTOPRAZOLE SODIUM TAB 40 MG PO SCH (12:06)
[2020-05-16] MEDS: SPIRONOLACTONE 25 MG TAB PO SCH (12:06)
[2020-05-16] MEDS ORDERED: WARFARIN SODIUM 3 MG TAB PO SCH (17:00)
[2020-05-16] MEDS: ATORVASTATIN 20 MG TAB PO SCH (20:33)
[2020-05-16] MEDS: PRAMIPEXOLE 0.25 MG TAB PO SCH (20:33)
[2020-05-17] MEDS: IV SET AND CAP CHANGE INJ INJ SCH (00:58)
[2020-05-17] MEDS: HYDROcodone 5MG/APAP 325MG 1 EA TAB PO PRN ×5 (00:59→21:20)
[2020-05-17] MEDS: VANCOMYCIN HCL INJ 1,250 MG in SODIUM CHLORIDE 0.9% 250ML 250 ML IVPB SCH (04:14)
[2020-05-17] MEDS: POTASSIUM CHLORIDE 10 MEQ TAB PO SCH ×2 (06:31→11:42)
[2020-05-17] MEDS: CLOPIDOGREL 75 MG TAB PO SCH (06:31)
[2020-05-17] MEDS: INSULIN LISPRO 100 UNITS/ML PEN SUBCU SCH ×4 (07:56→21:00)
[2020-05-17] MEDS: FUROSEMIDE 40 MG TAB PO SCH (08:01)
[2020-05-17] MEDS: RAMIPRIL 2.5 MG CAP PO SCH ×2 (08:01→11:44)
[2020-05-17] MEDS: ISOSORBIDE MONONITRATE (IMDUR) 30 MG TAB PO SCH ×2 (08:02→21:00)
[2020-05-17] MEDS: RANOLAZINE ER 500 MG TAB PO SCH ×2 (08:02→21:20)
[2020-05-17] MEDS: METOPROLOL TARTRATE 50 MG TAB PO SCH ×2 (08:02→21:00)
[2020-05-17] MEDS: PANTOPRAZOLE SODIUM TAB 40 MG PO SCH (11:40)
[2020-05-17] MEDS: SPIRONOLACTONE 25 MG TAB PO SCH (11:41)
[2020-05-17] MEDS: WARFARIN SODIUM 5 MG TAB PO SCH (17:06)
[2020-05-17] MEDS: PRAMIPEXOLE 0.25 MG TAB PO SCH (21:00)
[2020-05-17] MEDS: ATORVASTATIN 20 MG TAB PO SCH (21:00)
[2020-05-18] MEDS: HYDROcodone 5MG/APAP 325MG 1 EA TAB PO PRN ×5 (01:31→20:43)
[2020-05-18] MEDS: MORPHINE SULFATE INJ 10 MG/ML VIAL IV PRN ×3 (02:30→22:26)
[2020-05-18] MEDS: VANCOMYCIN HCL INJ 1,250 MG in SODIUM CHLORIDE 0.9% 250ML 250 ML IVPB SCH (03:46)
[2020-05-18] MEDS: POTASSIUM CHLORIDE 10 MEQ TAB PO SCH ×2 (06:54→11:49)
[2020-05-18] MEDS: CLOPIDOGREL 75 MG TAB PO SCH (06:54)
[2020-05-18] MEDS: INSULIN LISPRO 100 UNITS/ML PEN SUBCU SCH ×4 (07:25→21:35)
[2020-05-18] MEDS: RAMIPRIL 2.5 MG CAP PO SCH ×2 (08:26→11:49)
[2020-05-18] MEDS: RANOLAZINE ER 500 MG TAB PO SCH ×2 (08:26→20:45)
[2020-05-18] MEDS: METOPROLOL TARTRATE 50 MG TAB PO SCH ×2 (08:27→20:45)
[2020-05-18] MEDS: ISOSORBIDE MONONITRATE (IMDUR) 30 MG TAB PO SCH ×2 (08:27→20:44)
[2020-05-18] MEDS: FUROSEMIDE 40 MG TAB PO SCH (08:30)
--- NOTE | 2020-05-18 09:04 | PN ---
SUPERVISING PHYSICIAN: Carlos Rios MD DATE: 05/16/20 SUBJECTIVE: The patient is lying in bed. He still complains of extreme weakness although he feels somewhat better. He received his PICC line and is continuing with his antibiotics. We also discussed his plan of care. OBJECTIVE: VITAL SIGNS: Temperature 97.5, heart rate 76, blood pressure 121/68, respiratory rate 18, O2 saturation 95% on room air. RESPIRATORY: Essentially clear to auscultation bilaterally. CARDIAC: Regular rate and rhythm. NEUROLOGIC: Awake, alert and oriented times three. LABORATORY: WBCs improved to 8.9, hemoglobin 9.7, hematocrit 28.1. He has a left shift on differential. INR 2.48. Sodium 132, potassium 4.7, chloride 103, BUN 51, creatinine 2.84. Calcium 7.8, bilirubin 1.2. RADIOLOGY: Chest x-ray shows left upper extremity PICC line, central VAD in customary position with no complications seen. All other labs and films have been reviewed via the EMR. ASSESSMENT: 1. Sepsis, most likely secondary to hardware in back. Staph aureus, presently on Vancomycin. 2. Intractable low back pain likely acute on chronic with no obvious neurological deficits. 3. Group A Streptococcal pharyngitis with associated sepsis. 4. History of aortic valve mechanical valve replacement on chronic Coumadin therapy, showing therapeutic levels on initial admission. 5. Mild electrolyte imbalance in the form of hyponatremia and hyperkalemia with the patient on Lasix and spironolactone. 6. Renal insufficiency likely due to some mild prerenal azotemia due to chronic diuretic usage. 7. Diabetes mellitus, type 2 on insulin. 8. Coronary artery disease. 9. Hyperlipidemia. 10. Hypertension. 11. History of autoimmune hemolytic anemia. 12. Normocytic/normochromic anemia, likely chronic. PLAN: We will continue present supportive care including his present antibiotics. Dr. Boyer felt we should add vancomycin due to his preliminary blood cultures and we could discontinue his other antibiotic until the sensitivity reports are back. She also felt the most likely source of his infection was his hardware placed in his back during surgery in July of 2019 and that it would be prudent to contact his back surgeon to inform him of the patient's prognosis and treatment as well as his acceptance to [facility] after discharge. Continued plan to discharge to [facility] unless his back surgeon disagrees. We will plan for discharge on Wednesday as well as pending the sensitivities from his blood cultures. we will continue to monitor the patient closely and follow as needed. [facility][id number]
[2020-05-18] MEDS: PANTOPRAZOLE SODIUM TAB 40 MG PO SCH (11:49)
[2020-05-18] MEDS: SPIRONOLACTONE 25 MG TAB PO SCH (11:49)
[2020-05-18] MEDS ORDERED: MAGNESIUM HYDROXIDE 30 ML UD ONE ×2 (14:56→19:49)
[2020-05-18] MEDS: MAGNESIUM HYDROXIDE 30 ML UD PO SCH ×2 (15:26→19:51)
[2020-05-18] MEDS ORDERED: VANCOMYCIN HCL INJ 1,000 MG VIAL IVPB ONE (19:48)
[2020-05-18] MEDS ORDERED: SODIUM CHL 0.9% 250ML (AVIVA) 250 ML IVPB ONE (19:49)
[2020-05-18] MEDS: VANCOMYCIN HCL INJ 1,000 MG in SODIUM CHLORIDE 0.9% 250ML 250 ML IVPB SCH (19:51)
[2020-05-18] MEDS: ATORVASTATIN 20 MG TAB PO SCH (20:40)
[2020-05-18] MEDS: PRAMIPEXOLE 0.25 MG TAB PO SCH (20:44)
[2020-05-18] MEDS: CYCLOBENZAPRINE HCL 10 MG TAB PO PRN (20:44)
[2020-05-19] MEDS: MORPHINE SULFATE INJ 10 MG/ML VIAL IV PRN (01:46)
[2020-05-19] MEDS: HYDROcodone 5MG/APAP 325MG 1 EA TAB PO PRN ×2 (05:51→09:56)
[2020-05-19] MEDS: POTASSIUM CHLORIDE 10 MEQ TAB PO SCH ×2 (06:27→11:52)
[2020-05-19] MEDS: CLOPIDOGREL 75 MG TAB PO SCH (06:27)
[2020-05-19] MEDS: INSULIN LISPRO 100 UNITS/ML PEN SUBCU SCH ×4 (07:46→21:02)
[2020-05-19] MEDS: FUROSEMIDE 40 MG TAB PO SCH (08:36)
[2020-05-19] MEDS: RANOLAZINE ER 500 MG TAB PO SCH ×2 (08:37→20:56)
[2020-05-19] MEDS: RAMIPRIL 2.5 MG CAP PO SCH ×2 (08:37→11:52)
[2020-05-19] MEDS: ISOSORBIDE MONONITRATE (IMDUR) 30 MG TAB PO SCH ×2 (08:37→20:56)
[2020-05-19] MEDS: METOPROLOL TARTRATE 50 MG TAB PO SCH ×2 (08:37→20:56)
--- NOTE | 2020-05-19 11:42 | PN ---
SUPERVISING PHYSICIAN: Carlos Rios MD DATE: 05/18/20 SUBJECTIVE: The patient is lying in bed. Nursing has reported that he does not like to get up and move and says he hurts all the time. Physical therapy says he participated very little in his therapy today. We discussed at length that he will need to participate, otherwise, he will probably be refused admission to [facility]. Otherwise, he has no complaints other than extreme weakness. OBJECTIVE: VITAL SIGNS: Temperature 97.3, heart rate 101, blood pressure 139/74, respiratory rate 18, O2 saturation 98% on room air. RESPIRATORY: Essentially clear to auscultation bilaterally. CARDIAC: Regular rate and rhythm. NEUROLOGIC: Awake, alert and oriented times three. He has a very flat affect. LABORATORY: WBCs are 5.6, hemoglobin 9.6, hematocrit 27.6. INR 5.17. Sodium 129, potassium 4.5, chloride 96, BUN 62, creatinine 2.6. Calcium 7.9, magnesium 2.2, bilirubin 1.2. Blood cultures show Staphylococcus aureus and Staphylococcus homonymous. All other labs and films have been reviewed via the EMR. ASSESSMENT: 1. Sepsis, most likely secondary to hardware in back. Staph aureus, presently on Vancomycin. 2. Intractable low back pain likely acute on chronic with no obvious neurological deficits. 3. Group A Streptococcal pharyngitis with associated sepsis. 4. History of aortic valve mechanical valve replacement on chronic Coumadin therapy showing therapeutic levels on initial admission. 5. Mild electrolyte imbalance in the form of hyponatremia and hyperkalemia with the patient on Lasix and spironolactone. 6. Renal insufficiency likely due to some mild prerenal azotemia due to chronic diuretic usage. 7. Diabetes mellitus, type 2 on insulin. 8. Coronary artery disease. 9. Hyperlipidemia. 10. Hypertension. 11. History of autoimmune hemolytic anemia. 12. Normocytic/normochromic anemia, likely chronic. PLAN: We will continue present supportive care. I have encouraged him to get up and move around in his room and to participate in physical therapy. I have discontinued his routine Coumadin and rechecked his INR for in the morning. At this point, may need to evaluate his Coumadin regimen. I have continued his vancomycin and will need to call Dr. Boyer on Wednesday to get recommended length of treatment. I attempted to call the patient's neurosurgeon in [place], Dr. Sutton, and I was unable to reach him today. I feel like he will need to be informed of the patient's clinical situation and see if it's okay for him to transfer to [facility] for rehab. Otherwise, the patient may need to go to a [place] [facility] at discharge. I have ordered lab including an INR in the morning. We will continue to monitor and treat as needed. #[id number] [facility]TDD
--- NOTE | 2020-05-19 11:45 | PN ---
SUPERVISING PHYSICIAN: Jethro Rios M.D. DATE: 05/17/20 SUBJECTIVE: The patient is lying bed. He complains of pain all over. We had a lengthy discussion about getting up and moving. He has been accepted to [facility] that most likely will not occur until Wednesday because he does not get up to keep moving. They will probably refuse his transfer and he will have to go a correction. He is noncommittal about getting up and actually moving around, and actually says he cannot get to the chair because it is too low. OBJECTIVE: VITAL SIGNS: Temperature 97.6, heart rate 72, blood pressure 133/74, respiratory rate 16, O2 saturation 98% on room air. RESPIRATORY: Essentially clear to auscultation bilaterally, diminished at the bases. CARDIAC: Regular rate and rhythm. NEUROLOGIC: He is awake, alert and oriented times three. LABORATORY: WBCs are 6.8, hemoglobin 9.5, hematocrit 26.5. INR is 4.32. Sodium 129, chloride 90, BUN 59, creatinine 2.71, calcium 7.9, magnesium 2.2. All other labs and films have been reviewed via the EMR. ASSESSMENT: 1. Sepsis, most likely secondary to hardware in back. Staph aureus, presently on Vancomycin. 2. Intractable low back pain likely acute on chronic with no obvious neurological deficits. 3. Group A Streptococcal pharyngitis with associated sepsis. 4. History of aortic valve mechanical valve replacement on chronic Coumadin therapy, showing therapeutic levels on initial admission. 5. Mild electrolyte imbalance in the form of hyponatremia and hyperkalemia with the patient on Lasix and spironolactone. 6. Renal insufficiency likely due to some mild prerenal azotemia due to chronic diuretic usage. 7. Diabetes mellitus, type 2 on insulin. 8. Coronary artery disease. 9. Hyperlipidemia. 10. Hypertension. 11. History of autoimmune hemolytic anemia. 12. Normocytic/normochromic anemia, likely chronic. PLAN: We will continue present supportive care and continue his present antibiotics of vancomycin. Will wait for his culture results. I have ordered an INR for tomorrow. I have held his Coumadin for today. I have also encouraged him to get up and move. I have also ordered physical therapy for further treatment. Hopefully he can be discharged to [facility] on Wednesday, but will need to touch base with his surgeon to make sure he is okay with discharge to [facility] as Dr. Boyer, Infectious Diseases, thinks that the source of his infection is the hardware that was placed in his back in July. Otherwise we will continue to monitor and treat as needed. #[id number] [facility]TDD
[2020-05-19] MEDS: PANTOPRAZOLE SODIUM TAB 40 MG PO SCH (11:52)
[2020-05-19] MEDS: SPIRONOLACTONE 25 MG TAB PO SCH (11:52)
[2020-05-19] MEDS: CYCLOBENZAPRINE HCL 10 MG TAB PO PRN ×3 (14:38→20:56)
[2020-05-19] MEDS: PREGABALIN 100 MG CAP PO SCH ×2 (15:07→20:57)
[2020-05-19] MEDS ORDERED: WARFARIN SODIUM 3 MG TAB PO SCH (17:00)
[2020-05-19] MEDS ORDERED: VANCOMYCIN HCL INJ 1,000 MG VIAL IVPB ONE (19:30)
[2020-05-19] MEDS ORDERED: SODIUM CHL 0.9% 250ML (AVIVA) 250 ML IVPB ONE (19:31)
[2020-05-19] MEDS: VANCOMYCIN HCL INJ 1,000 MG in SODIUM CHLORIDE 0.9% 250ML 250 ML IVPB SCH (19:34)
--- NOTE | 2020-05-19 19:35 | PN ---
SUPERVISING PHYSICIAN: Carlos Rios MD DATE: 05/19/20 SUBJECTIVE: The patient continues to have severe back pain which is limiting his physical mobility. Otherwise, he has not other significant complaints. OBJECTIVE: VITAL SIGNS: Temperature 97.9, pulse 75, blood pressure 141/71, respirations 16, saturation 97% on room air at rest. GENERAL: The patient is resting comfortably, but obviously shows grimacing when he tries to move. CHEST: Lungs are clear to auscultation bilaterally. HEART: Regular rate and rhythm. ABDOMEN: Soft, nontender. Positive bowel sounds. EXTREMITIES: No cyanosis, clubbing or edema. NEUROLOGIC: Alert and oriented times three. SKIN: Left buttocks shows some excoriation, but no signs of cellulitis or infection. No signs of any pressure ulcers. It looks more excoriated. LABORATORY: White count stable at 5,500, hemoglobin 9.8, hematocrit 28.4, differential without a left shift. Platelet count 190,000. Coagulation studies show INR now 3.16. Chemistry shows sodium 131 corrected due to hyperglycemia to 132, which is improved from the last 3 days at 129. BUN 64, creatinine 2.49 which is fairly stable. Blood sugars range between 184 and 265. Calcium 8.2, magnesium high at 2.7. MICROBIOLOGY: Final blood cultures showed Staphylococcus aureus and Staphylococcus hominis in all bottles which were sensitive to all antibiotics, meraz sensitive, including vancomycin and oxacillin. ASSESSMENT: 1. Sepsis, most likely secondary to hardware in back. Staph aureus, presently on vancomycin. 2. Intractable low back pain likely acute on chronic with no obvious neurological deficits. 3. Group A Streptococcal pharyngitis with associated sepsis. 4. History of aortic valve mechanical valve replacement on chronic Coumadin therapy, showing therapeutic levels on initial admission. 5. Mild electrolyte imbalance in the form of hyponatremia and hyperkalemia with the patient on Lasix and spironolactone. 6. Renal insufficiency likely due to some mild prerenal azotemia due to chronic diuretic usage. 7. Diabetes mellitus, type 2 on insulin. 8. Coronary artery disease. 9. Hyperlipidemia. 10. Hypertension. 11. History of autoimmune hemolytic anemia. 12. Normocytic/normochromic anemia, likely chronic. PLAN: We will continue with plan of care with vancomycin per Dr. Boyer's recommendation. We will follow his kidney levels and treat as necessary with dosing. Again, continue to encourage him to get up to a chair with assistance, but not to be up without assistance. I will add Lyrica to his pain regimen to see if this will better control his pain as well as increase his [place] to 10. I will see if I can get a hold of Dr. Oro tomorrow and discuss the case with him or probably more likely discuss with Dr. Echeverria and see if we can get a discussion going on definitive plan of care. If Dr. Oro is okay with him going to [facility], then he will discharge to [facility] for continued treatment for the underlying questionable hardware infection with vancomycin and be followed by Dr. Boyer. Until then, we will continue to monitor and treat as needed. #[id number] MTDD
[2020-05-19] MEDS: HYDROcodone 10MG/APAP 325MG 1 EA TAB PO PRN (20:56)
[2020-05-19] MEDS: ATORVASTATIN 20 MG TAB PO SCH (20:56)
[2020-05-19] MEDS: NYSTATIN POWDER 15GM BTTL TOP SCH (20:57)
[2020-05-19] MEDS: PRAMIPEXOLE 0.25 MG TAB PO SCH (20:57)
[2020-05-19] MEDS ORDERED: WARFARIN SODIUM 9 MG PO SCH (22:56)
[2020-05-19] MEDS: IV SET AND CAP CHANGE INJ INJ SCH (23:06)
[2020-05-20] MEDS ORDERED: MORPHINE SULFATE INJ 10 MG/ML VIAL ONE (00:02)
[2020-05-20] MEDS: MORPHINE SULFATE INJ 10 MG/ML VIAL IV PRN (00:17)
[2020-05-20 04:53] VITALS: O2SAT 93
[2020-05-20] MEDS: POTASSIUM CHLORIDE 10 MEQ TAB PO SCH (06:15)
[2020-05-20] MEDS: CLOPIDOGREL 75 MG TAB PO SCH (06:19)
[2020-05-20] MEDS: INSULIN LISPRO 100 UNITS/ML PEN SUBCU SCH ×2 (08:11→13:00)
[2020-05-20] MEDS: FUROSEMIDE 40 MG TAB PO SCH (10:02)
[2020-05-20] MEDS: RAMIPRIL 2.5 MG CAP PO SCH (10:02)
[2020-05-20] MEDS: ISOSORBIDE MONONITRATE (IMDUR) 30 MG TAB PO SCH (10:02)
[2020-05-20] MEDS: METOPROLOL TARTRATE 50 MG TAB PO SCH (10:03)
[2020-05-20] MEDS ORDERED: PREGABALIN 100 MG CAP ONE (10:09)
[2020-05-20] MEDS: RANOLAZINE ER 500 MG TAB PO SCH (10:10)
[2020-05-20] MEDS: PREGABALIN 100 MG CAP PO SCH ×2 (10:10→14:13)
[2020-05-20] MEDS: NYSTATIN POWDER 15GM BTTL TOP SCH (10:17)
[2020-05-20] MEDS ORDERED: ceFAZolin SODIUM 2 GM in SODIUM CHLORIDE 0.9% 100ML 100 ML IVPB SCH (13:00)
[2020-05-20] MEDS: PANTOPRAZOLE SODIUM TAB 40 MG PO SCH (14:12)
[2020-05-20] MEDS: CYCLOBENZAPRINE HCL 10 MG TAB PO PRN (14:12)
[2020-05-20] MEDS: HYDROcodone 10MG/APAP 325MG 1 EA TAB PO PRN (14:13)
[2020-05-20 15:12] VITALS: BP 133/54; TEMP 98
--- NOTE | 2020-05-22 09:06 | DS ---
SUPERVISING PHYSICIAN: JOHNNA BOLAÑOS ADMISSION DIAGNOSES: 1. Intractable low back pain with history of chronic back pain and recent back surgery in July of 2019 with no mention of fall or any neurologic deficits. 2. Normocytic/normochromic anemia, likely chronic. 3. History of aortic valve mechanical valve replacement on chronic Coumadin therapy, showing therapeutic levels on initial admission. 4. Mild electrolyte imbalance in the form of hyponatremia and hyperkalemia with the patient on Lasix and spironolactone. 5. Renal insufficiency likely due to some mild prerenal azotemia due to chronic diuretic usage. 6. Diabetes mellitus, type 2 on insulin. 7. Coronary artery disease. 8. Hyperlipidemia. 9. Hypertension. 10. History of autoimmune hemolytic anemia. DISCHARGE DIAGNOSES: 1. Sepsis, possibly related to hardware in back with blood cultures showing a methicillin sensitive staph aureus and staph hominis with patient having been on vancomycin and transitioned to Ancef. 2. Streptococcal pharyngitis with positive strep screen. 3. Intractable lower back pain with concerns for possible hardware issues with no clinical neurological deficits. 4. History of mechanical aortic valve replacement on chronic Coumadin therapy complicating his sepsis with patient showing therapeutic levels on discharge. 5. Diabetes mellitus type 2 on inulin. 6. Coronary artery disease. 7. Coronary artery disease. 8. Hyperlipidemia. 9. Hypertension. 10. History of autoimmune hemolytic anemia. 11. Normocytic/normochromic anemia, likely chronic. REASON FOR HOSPITALIZATION: Mr. Chong is a 70-year-old male patient that presented to the Emergency Room secondary to severe low back pain. The patient has a history of having a fusion of L4-L5 with L3-5 laminectomy and decompression in July of 2019. He endorses that he was stepping off a curb yesterday and apparently stepped wrong and at that point had severe back pain in his lower back. He was able to ambulate home. He went home, took a nap on the couch and when he woke up, he could not move due to uncontrolled pain. He was having some back spasms. No reported incontinence or paresthesias to lower extremities. He has no evidence of a fall, but was rating the pain as unbearable at 10/10. A lumbar CT was completed in the ER and showed no acute changes other than mention of possible L4 pedicle screw possibly showing some evidence of loosening. On exam, the patient had no obvious deformities, no step-offs. His vital signs in the ER showed temperature 99.6, pulse 69, saturation 97% on room air. Labs showed white count 9,600 with a slight left shift. Coagulation studies showed INR 4.03. He is on chronic Coumadin therapy for mechanical aortic valve replacement. Chemistries showed a mildly elevated potassium at 5.2 with creatinine 1.76. Liver functions all within normal limits. He was given pain management in the ER initially with Dilaudid and 40 mg dose of oral prednisone with minimal control of the pain. The ER physician, Dr. Jakob Hendrickson, requested the patient be placed in observation overnight for physical therapy evaluation in the morning and further pain control with the patient unable to perform any activities of daily living. He was placed in observation initially in stable condition. HOSPITAL COURSE: Mr. Chong was admitted initially for Initially for back pain that was related to what he felt was tweak in his back when he stepped off a curb. Shortly after admission, he developed a temperature. Cultures were done and came back with a methicillin sensitive staph aureus and staph hominis. Given that he has hardware in his back which was placed back in July, there is concern for possible complications. He was started on treatment for this per recommendations from Dr. Boyer. I did talk to Dr. Sparrow while the patient was in the hospital and he recommended antibiotics and to followup in the future if symptoms continued or anything changed. Over the course of his treatment in the hospital, the patient was showing to be clinically stable. He was still having severe back pain and physical therapy evaluation recommended inpatient rehabilitation. He was accepted to rehabilitation at [facility]. He had PICC line placed while in the hospital. He was started on Ancef after cultures were completed. He was showing to be clinically stable. Vital signs at discharge showed he was afebrile at 98 with pulse of 83, blood pressure 133/54, respirations 16, oxygen saturation 95% on room air. He was transferred via van to [facility]. The case was discussed with Dr. Boyer who will see him at [facility]. PHYSICIANS: Neurosurgery, Dr. Bakari Sparrow, [address], [place], phone number [phone]. Primary care physician: Dr. Echeverria. Cardiology: Dr. Dario Granda, [address] [place] [address]. . LABORATORY: Discharge white count 5,500, hemoglobin 9.8, hematocrit 20.4, differential was showing to be without a left shift. Sed rate was 82. Coagulation studies showed his discharge final INR was 3.16. Chemistries showing sodium 130, potassium elevated at 5.2 but he is on spironolactone. Creatinine holding fairly stable at 2.57, blood sugars ranging between 189 and 281. C-reactive protein 10.8. He did have a positive strep screen. MICROBIOLOGY: Blood cultures x2 sets grew out Staphylococcus aureus and Staphylococcus hominis, both sensitive to oxacillin. Influenza A and B by PCR was negative. Nasal swab for Covid was negative. RADIOLOGY: Lumbar spine CT in the Emergency Room per radiology interpretation showed L4 degenerative disk changes with an L4 laminectomy and posterior fusion, hardware at L4 and L5. There was note of a faint lucency associated with the left L4 pedicle screw possibly secondary to loosening. Please see that full report for details. Chest x-ray showed left upper extremity PICC line was placed. No signs of consolidations or other cardiopulmonary issues. PLAN: Mr. Chong was discharged and transferred to inpatient rehabilitation with [facility] in [place]. He was to continue antibiotic coverage with Ancef 2 grams every 12 hours and continue with orders per Dr. Boyer as well as Flexeril for spasms, 10 mg 3 times a day as needed. All other medications prior to hospitalization were continued as is. Please see the medical administration records for full details of those medications. Diet is usual as tolerated, increase activity as tolerated per physical therapy. Condition on discharge was stable, improving. DISPOSITION: The patient was transferred to inpatient rehabilitation facility with [facility] in [place] via ground van. [facility]
== END 2020-05-20 14:00 | DRG 559 ==
LOC: ER 19:16 → MS 21:59 → OBSVTOIN 21:59
PROVIDERS: ADMIT Nurse Practitioner Family; ATTEND Nurse Practitioner Family
DX: T84.63XA Infection and inflammatory reaction due to internal fixation device of spine, initial encounter (principal); A41.01 Sepsis due to Methicillin susceptible Staphylococcus aureus; E87.1 Hypo-osmolality and hyponatremia; M51.36 Other intervertebral disc degeneration, lumbar region; J02.0 Streptococcal pharyngitis; D64.9 Anemia, unspecified; E87.5 Hyperkalemia; E11.9 Type 2 diabetes mellitus without complications; I10 Essential (primary) hypertension; I25.10 Atherosclerotic heart disease of native coronary artery without angina pectoris; E78.5 Hyperlipidemia, unspecified; M19.90 Unspecified osteoarthritis, unspecified site; Z95.2 Presence of prosthetic heart valve; Z95.1 Presence of aortocoronary bypass graft; Z20.822 Contact with and (suspected) exposure to COVID-19; Z79.01 Long term (current) use of anticoagulants; Z79.02 Long term (current) use of antithrombotics/antiplatelets; Z79.4 Long term (current) use of insulin; Z98.1 Arthrodesis status

== ENCOUNTER 2020-06-12 14:59 | Emergency (ER) | payer MEDICARE ==
--- NOTE | 2020-06-12 16:11 | CT ---
EXAM DESCRIPTION: Lumbar Spine CLINICAL HISTORY: 70 years, Male, acute on chronic back pain COMPARISON: Previous CT lumbar spine May 13, 2020 TECHNIQUE: Lumbar CT with thin-section axial imaging with reconstructed MPR images reviewed as well. FINDINGS: Sagittal reformatted images show widened L3-4 disc space with destructive changes of the surrounding endplates at lower L3 and upper L4. Low density of the disc space is seen. The craniocaudal dimension of the disc space has increased to 1.5 cm compared to 2 mm on previous study May 13, 2020. Calcific sclerosis is seen around some portions of the disc space lucency. Findings are overall most consistent with discitis. Chronic indolent infection or partially treated discitis might be considered. Various agents to be considered would include staph aureus, tuberculosis or brucellosis. Neurosurgical consultation is recommended. Orthopedic hardware is present with pedicle screws at L4 and L5 levels with posterior interconnecting rods. Posterior complete laminectomy behind the L4-5 disc space. Metallic density L4-5 consistent with intervertebral disc spacer. Slight widening of the facet joints at L3-4 bilaterally, right more than left. Other disc levels are unremarkable. Slight superior endplate depression at L1 appears chronic. Coronal reformatted images confirm the findings. On the coronal images, lateral bulging of calcific rim is seen with small gas bubbles on the right. All this may be related to extrusion of nitrogen gas from the upper aspect of the abnormal L4 vertebral body, gas bubbles related to infection might also be considered. Lateral bulging suggest the possibility of a developing right psoas abscess 2 x 2.4 cm (coronal image 72, series 602). Axial images show destructive endplate changes in the inferior L3 and in superior L4.. Diffuse posterior annular bulge at L3-4 narrows the AP diameter the spinal canal to 3.0 mm (axial image 46, series 2). Marked facet degenerative changes with ligamentum flavum thickening narrows the mediolateral width of the canal to 6.3 mm just above the level of the laminectomy defect. Findings are consistent with high-grade spinal stenosis more inferiorly, at the level of upper L4, gas bubbles are seen on the right in the region of the psoas muscle suggesting paraspinous extension of abscess from the disc space. Calcific densities are seen on the left in the medial aspect of the left psoas muscle. Metal artifacts obscure the spinal canal at the upper L5 level. I discussed the above results with Dr. Jakob Hendrickson in the [facility] emergency department at the time of image interpretation 4:05 PM on 06/12/2020. IMPRESSION CT findings most consistent with interval development of infectious discitis at the L3-4 level with developing paraspinous abscess on the right. High-grade spinal stenosis lower L3 level just above the L3-4 disc space. This exam was performed according to our departmental dose-optimization program, which includes automated exposure control, adjustment of the mA and/or kV according to patient size and/or use of iterative reconstruction technique. Electronically signed by: Jong Umanzor MD 06/12/2020 4:10 PM [facility]
--- NOTE | 2020-06-12 17:18 | ED.PDOC ---
History of Present Illness - General Chief Complaint: Back Pain or Injury Stated Complaint: low back pain,sent by Dr. Echeverria Time Seen by Provider: 06/12/20 15:00 Source: patient Exam Limitations: no limitations - History of Present Illness Initial Comments: The patient is a 70-year-old male presenting to the emergency room from the long-term care facility secondary to persistent and worsening back pain. The problem started essentially a month ago when the patient developed acute back pain. [facility] primarily for pain control at which point he developed a fever. CT scan of the lumbar spine showed some loosening of the L4 screw. Blood cultures were taken which grew out MSSA. The patient had initially been started on vancomycin and was switched over to Ancef. He received around 3 weeks of IV cephalosporin treatment, those leads were at a inpatient rehab facility. IV antibiotics were discontinued at that point however he was continued on oral cephalosporin primarily for his decubitus ulcer that he had developed. The patient has been unable to walk and largely unable to even move around in bed over that period of time secondary to severe pain in the low back that radiates down his right leg towards the knee. He had a Oscar catheter put in due to development of the decubitus ulcer. No definite incontinence prior. He does still have sensation in his extremities. He does still have muscular movement of his legs. Back pain has been getting worse for the last for 5 days as well. No definite fevers. No evidence of sepsis. The patient is significantly deconditioned compared to when I saw him a month ago. He has significant edema to bilateral lower extremities. The patient apparently does take Coumadin for mechanical aortic valve. He has not had a JESSEE since the onset of this infectious process. Timing/Duration: constant, getting worse, other - 1 month Severity: severe Improving Factors: immobilization Worsening Factors: movement Associated Symptoms: malaise Allergies/Adverse Reactions: Allergies Adhesive Tape Adverse Reaction (Mild, Uncoded 05/14/20 02:12) Rash Pt states allergic to Adhesive Tape Home Medications: Ambulatory Orders Metoprolol Tartrate 50 mg PO BID 08/29/14 Spironolactone [Aldactone] 50 mg PO DAILY@1200 05/23/15 Insulin Regular (Human) [Novolin R] 100 unit SUBCU .SLIDING SCALE 10/30/15 Furosemide 120 mg PO 0800 11/25/15 Omeprazole Magnesium [Prilosec Otc] 20 mg PO NOON 08/14/16 Potassium Chloride [Potassium Chloride ER] 10 meq PO DAILY@0700 04/25/17 Pramipexole Dihydrochloride [Pramipexole Dihydrochlori] 0.125 mg PO BEDTIME 04/25/17 Warfarin Sodium [Coumadin] 5 mg PO MOWEFR 04/25/17 Insulin NPH (Human) (Isophane) [Novolin N] 16 unit SC ACBK 12/26/18 Potassium Chloride [Potassium Chloride ER] 10 meq PO DAILY@1200 12/26/18 Ramipril 2.5 mg PO 0900,1200 12/26/18 Warfarin Sodium 9 mg PO SALDAÑA 12/26/18 Warfarin Sodium 9 mg PO TUTHSA 12/26/18 Atorvastatin Calcium [Lipitor] 80 mg PO BEDTIME 05/13/20 Clopidogrel Bisulfate [Plavix] 75 mg PO 0700 05/13/20 Isosorbide Mononitrate [Isosorbide Mononitrate ER] 60 mg PO BID 05/13/20 Ranolazine [Ranexa] 500 mg PO BID 05/13/20 Cyclobenzaprine HCl [Flexeril] 10 mg PO TID PRN tab 05/20/20 ceFAZolin SODIUM [Ancef] 2 gm IVPB Q12H vial 05/20/20 Review of Systems - Review of Systems Constitutional: States: malaise EENTM: States: no symptoms reported Respiratory: States: no symptoms reported Cardiology: States: no symptoms reported Gastrointestinal/Abdominal: States: no symptoms reported Genitourinary: States: see HPI Musculoskeletal: States: see HPI Skin: States: see HPI Neurological: States: anxiety Endocrine: States: no symptoms reported All other Systems: No Change from Baseline Past Medical History (General) - Patient Medical History Hx Seizures: No Hx Stroke: No Hx Dementia: No Hx Asthma: No Hx of COPD: No Hx Cardiac Disorders: Yes - [place], valve replacement Hx Congestive Heart Failure: Yes Hx Pacemaker: No Hx Hypertension: Yes Hx Thyroid Disease: No Hx Diabetes: Yes Hx Gastroesophageal Reflux: Yes Hx Renal Disease: No Hx Cancer: Yes - Skin Hx of HIV: No Hx Hepatitis C: No Hx MRSA: No Surgical History: cholecystectomy, coronary bypass surgery, tonsillectomy - Vaccination History Hx Tetanus, Diphtheria Vaccination: No Hx Influenza Vaccination: Yes Hx Pneumococcal Vaccination: Yes - Social History Hx Tobacco Use: No Hx Alcohol Use: Yes - 1994 Hx Substance Use: No Hx Substance Use Treatment: No Hx Depression: No Hx Physical Abuse: No Hx Emotional Abuse: No - Activities of Daily Living Alf/Assisted Living (if applicable):: [facility] - Female History Patient : No Family Medical History - Family History Mother Family History: No Known Living Status: Age at (years of age): 77 Cause of : Heart Attack Hx Family Hypertension: Yes - several family members Hx Family Diabetes: Yes Father Age (years): 52 Living Status: Age at (years of age): 52 Cause of : emphysema;cirrhosis of liver Brother Living Status: Age at (years of age): 53 Cause of : Diabetes Hx Family Diabetes: Yes Physical Exam - Physical Exam General Appearance: Alert, Frail, Ill Appearing Eye Exam: bilateral normal Ears, Nose, Throat: hearing grossly normal, normal pharynx Neck: full range of motion, supple Respiratory: lungs clear, normal breath sounds, no respiratory distress, no accessory muscle use Cardiovascular/Chest: normal peripheral pulses, other - Regular rate Peripheral Pulses: radial,right: 2+, radial,left: 2+ Gastrointestinal/Abdominal: non tender, soft Rectal Exam: other - Oscar catheter is in place Back Exam: other - He does have tenderness to palpation around his lower lumbar spine. Extremity: normal range of motion - Increased pain with active movement of the right lower extremity or with turning of his body., no calf tenderness, normal capillary refill, pedal edema Neurologic: imitation marble mechanic II-XII nml as tested, alert, normal mood/affect, oriented x 3 Skin Exam: normal color Comments: Vital Signs - 24 hr 06/12/20 06/12/20 15:06 16:47 Temperature 98.5 F Pulse Rate [ 84 78 Left Brachial] Respiratory 20 16 Rate Blood Pressure 162/82 161/85 [Left Radial Artery] O2 Sat by Pulse 96 98 Oximetry Progress - Progress Progress: 06/12/20 17:22 The patient is a 70-year-old male presented emergency room secondary to worsening of back pain and persistent inability to walk due to uncontrolled pain. The patient has developed decubitus ulcers due to that problem. Repeat evaluation here does not show an elevation of the white blood cell count but he does have an elevated ESR and the CT scan shows very significant interval changes in the area in question indicating significant discitis with a paraspinal abscess. We are currently trying to find the patient placement with available orthopedic or neurosurgery to evaluate his back. Additionally cardiology and infectious disease may prove beneficial as well. Delay in disposition due to difficulty with finding placement. 06/12/20 18:31 The patient is going to be transferred to [facility] where neurosurgery, infectious disease and cardiology are present. We have not given any additional antibiotics at this time. He does not appear to be septic. Transferring for specialty evaluation. Acceptance is appreciated. aurelio cool [id number] - Results/Orders Results/Orders: CT scan of the lumbar spine without contrast shows interval development of infectious discitis at the L3-4 level with developing paraspinous abscess on the right. There is high-grade spinal stenosis down to 3 mm just above the L3-4 disc space. See report for full details. This is in comparison to CT scan done on May 132019. Blood cultures have been performed. Laboratory Tests 06/12/20 06/12/20 06/12/20 15:21 15:21 15:21 WBC 6.9 RBC 3.18 L Hgb 9.3 L Hct 28.4 L MCV 89.3 MCH 29.3 MCHC 32.9 L RDW 14.5 Plt Count 291 MPV 7.7 Absolute Neuts (auto) 5.30 Absolute Lymphs (auto) 0.90 L Absolute Monos (auto) 0.60 Absolute Eos (auto) 0.10 Absolute Basos (auto) 0.00 Neutrophils % 77.7 Lymphocytes % 12.4 L Monocytes % 8.5 Eosinophils % 1.1 Basophils % 0.3 ESR PT 13.8 H INR 1.39 H PTT (SP) 27.9 D-Dimer, Quantitative 2880.0 H* Sodium 138 Potassium 3.7 Chloride 107 Carbon Dioxide 24 Anion Gap 10.7 L BUN 14 Creatinine 1.60 H BUN/Creatinine Ratio 8.8 L Random Glucose 166 H Serum Osmolality 279.9 Lactic Acid Calcium 7.9 L Magnesium 2.1 Total Bilirubin 0.7 AST 30 ALT 14 Alkaline Phosphatase 80 Creatine Kinase 81 CK-MB (CK-2) 3.1 CK-MB (CK-2) % Not Reportable Troponin I 0.02 C-Reactive Protein 1.1 H B-Natriuretic Peptide 274.0 H* Serum Total Protein 6.7 Albumin 2.7 L Globulin 4.0 H Albumin/Globulin Ratio 0.7 L Amylase 159 H Lipase 88 H 06/12/20 06/12/20 15:31 15:31 WBC RBC Hgb Hct MCV MCH MCHC RDW Plt Count MPV Absolute Neuts (auto) Absolute Lymphs (auto) Absolute Monos (auto) Absolute Eos (auto) Absolute Basos (auto) Neutrophils % Lymphocytes % Monocytes % Eosinophils % Basophils % ESR 92 H PT INR PTT (SP) D-Dimer, Quantitative Sodium Potassium Chloride Carbon Dioxide Anion Gap BUN Creatinine BUN/Creatinine Ratio Random Glucose Serum Osmolality Lactic Acid 1.7 Calcium Magnesium Total Bilirubin AST ALT Alkaline Phosphatase Creatine Kinase CK-MB (CK-2) CK-MB (CK-2) % Troponin I C-Reactive Protein B-Natriuretic Peptide Serum Total Protein Albumin Globulin Albumin/Globulin Ratio Amylase Lipase Departure - Departure Clinical Impression: Psoas abscess, right, Discitis of lumbar region, Compression of spinal cord Disposition: Transfer to Hospital Departure Forms: ED Discharge - Pt. Copy, Patient Portal Self Enrollment Instructions: DI for Low Back Pain Referrals: Chirag Echeverria III, MD [Primary Care Provider] - 1-2 Weeks Home Medications: Ambulatory Orders Metoprolol Tartrate 50 mg PO BID 08/29/14 Spironolactone [Aldactone] 50 mg PO DAILY@1200 05/23/15 Insulin Regular (Human) [Novolin R] 100 unit SUBCU .SLIDING SCALE 10/30/15 Furosemide 120 mg PO 0800 11/25/15 Omeprazole Magnesium [Prilosec Otc] 20 mg PO NOON 08/14/16 Potassium Chloride [Potassium Chloride ER] 10 meq PO DAILY@0700 04/25/17 Pramipexole Dihydrochloride [Pramipexole Dihydrochlori] 0.125 mg PO BEDTIME 04/25/17 Warfarin Sodium [Coumadin] 5 mg PO MOWEFR 04/25/17 Insulin NPH (Human) (Isophane) [Novolin N] 16 unit SC ACBK 12/26/18 Potassium Chloride [Potassium Chloride ER] 10 meq PO DAILY@1200 12/26/18 Ramipril 2.5 mg PO 0900,1200 12/26/18 Warfarin Sodium 9 mg PO SALDAÑA 12/26/18 Warfarin Sodium 9 mg PO TUTHSA 12/26/18 Atorvastatin Calcium [Lipitor] 80 mg PO BEDTIME 05/13/20 Clopidogrel Bisulfate [Plavix] 75 mg PO 0700 05/13/20 Isosorbide Mononitrate [Isosorbide Mononitrate ER] 60 mg PO BID 05/13/20 Ranolazine [Ranexa] 500 mg PO BID 05/13/20 Cyclobenzaprine HCl [Flexeril] 10 mg PO TID PRN tab 05/20/20 ceFAZolin SODIUM [Ancef] 2 gm IVPB Q12H vial 05/20/20 Transfer to Outside Facility - Transfer Information Decision to Transfer Date: 06/12/20 Decision to Transfer Time: 18:33 Reason for Transfer: required specialist not available Accepting Provider:: dr acosta Accepting Facility: [facility]
[2020-06-12 18:51] VITALS: O2SAT 98
[2020-06-12] MEDS ORDERED: CYCLOBENZAPRINE HCL 10 MG TAB PO ONE (19:41)
[2020-06-12 19:55] VITALS: BP 151/73; TEMP 97
== END 2020-06-12 19:55 | disposition short-term general hospital (02) ==
LOC: ER 14:59
DX: K68.12 Psoas muscle abscess (principal); M46.46 Discitis, unspecified, lumbar region; G95.20 Unspecified cord compression; M48.061 Spinal stenosis, lumbar region without neurogenic claudication; I25.2 Old myocardial infarction; I50.9 Heart failure, unspecified; I11.0 Hypertensive heart disease with heart failure; E11.9 Type 2 diabetes mellitus without complications; K21.9 Gastro-esophageal reflux disease without esophagitis; Z20.822 Contact with and (suspected) exposure to COVID-19; Z85.828 Personal history of other malignant neoplasm of skin; Z95.2 Presence of prosthetic heart valve; Z95.1 Presence of aortocoronary bypass graft; Z79.899 Other long term (current) drug therapy; Z79.4 Long term (current) use of insulin; Z79.01 Long term (current) use of anticoagulants; Z98.890 Other specified postprocedural states